=== PATIENT | female | born 1990 | race Caucasian/White ===

== ENCOUNTER 2017-09-04 15:51 | Inpatient (IN) | payer BC ==
[2017-09-04] MEDS ORDERED: Ondansetron 4 MG/2 ML SDV IVPUSH PRN (16:27)
[2017-09-04] MEDS ORDERED: Lidocaine 1% 50 ML MDV INJECT ONE (16:27)
[2017-09-04] MEDS ORDERED: Nalbuphine 20 MG/1 ML Amp IVPUSH PRN (16:27)
[2017-09-04] MEDS ORDERED: Sodium Chloride 0.9% 10 ML Syringe FLUSH PRN (16:27)
--- NOTE | 2017-09-04 16:45 | PCM.LDHP ---
L&D History of Present Illness - General Date of Service: 09/04/17 Admit Problem/Dx: Patient Status Order with Admit Dx/Problem 09/04/17 16:27 Patient Status [ADT] Routine Admission Diagnosis/Problem Admission Diagnosis/Problem complication before Source of Information: Patient History Limitations: Reports: No Limitations - History of Present Illness Introduction:: 27-year-old 000 GWYN 09/20/17 estimated gestational age 37 weeks 5 days with history of complication of because of type 1 diabetes. Utilizing insulin pump. Patient has been seen by Dr. De La Garza [facility]. Presented to labor and delivery today with history of increased swelling of lower extremities blurry vision "2 days ago" she felt like because of "low blood sugar" no headache and no right upper quadrant pain protein in urine was 2+ dipstick. Blood pressure initial blood pressure in the clinic 160/98 and repeat 170/102. NST was reactive in the clinic. Patient was sent to labor and delivery. Discussed patient with Dr. Greer and we both agree medically indicated induction because of preeclampsia with severe features. Labs pending. Group B strep negative. Blood type AB positive, antibody screen negative. 03/22/17 hemoglobin hematocrit 13.8/40.0. Platelets 285,000. Rubella immune, serology nonreactive, urine culture mixed diane suggestive of contamination. Hepatitis B surface antigen and HIV negative. On 07/03/17 hemoglobin hematocrit 13.4/39.6 platelets 261,000. On 08/08/17 hemoglobin hematocrit 13.6/39.1 platelet is 215,000. On hemoglobin A1c 6.5. On 08/22/17 group B strep negative. Improves with: Reports: None Worsens with: Reports: None Associated Symptoms: Reports: N Past Medical History : 1 Para: 0 (0000) LMP (Approximate): H&P Review of Systems - Review of Systems: Review Of Systems: See Below General: Reports: No Symptoms HEENT: Reports: No Symptoms Pulmonary: Reports: No Symptoms Cardiovascular: Reports: No Symptoms Gastrointestinal: Reports: No Symptoms Genitourinary: Reports: No Symptoms Musculoskeletal: Reports: No Symptoms Skin: Reports: No Symptoms Psychiatric: Reports: No Symptoms Neurological: Reports: No Symptoms Hematologic/Lymphatic: Reports: No Symptoms Immunologic: Reports: No Symptoms L&D Exam - Exam Exam: See Below - OB Specific Fundal Height In cm: 37 Movement: Active Heart Tones: Present Heart Tones per Min: 130 Heart Rate (FHR) Variability: Moderate (6-25 bmp) Presentation: Vertex - Vergara Score Vergara Score Cervix Position: Posterior Vergara Score Consistency: Soft Vergara Score Effacement: 31-50% Vergara Score Dilation: Closed Vergara Score Infant's Station: -3 Vergara Score Total: 3 - Exam General: Alert, Oriented HEENT: Conjunctiva Clear, Mucosa Moist & Ivan, PERRLA Neck: Supple, Trachea Midline Lungs: Clear to Auscultation, Normal Respiratory Effort Cardiovascular: Regular Rate, Regular Rhythm GI/Abdominal Exam: Normal Bowel Sounds, Soft, Non-Tender Genitourinary: Normal external exam, Normal bimanual exam, Normal speculum exam Extremities: Normal Inspection, Normal Range of Motion, Non-Tender, No Pedal Edema, Normal Capillary Refill Skin: Warm, Dry, Intact Neurological: Cranial Nerves Intact, Reflexes Equal Bilateral DTR: 2+: Bicep (L), Bicep (R), 3+: Patella (L) (No clonus), Patella (R) (2 beat clonus), Achilles (L) (No clonus), Achilles (R) (No clonus) Psychiatric: Alert, Normal Affect, Normal Mood - Problem List (1) 37 weeks gestation of SNOMED Code(s): 47394934 ICD Code: Z3A.37 - 37 WEEKS GESTATION OF Status: Acute Current Visit: Yes (2) Pre-existing type 1 diabetes mellitus during in third trimester SNOMED Code(s): 184251147 ICD Code: O24.013 - PRE-EXISTING TYPE 1 DIABETES, IN , THIRD TRIMESTER Status: Acute Current Visit: Yes (3) Pre-eclampsia, severe, third trimester SNOMED Code(s): 91486832 ICD Code: O14.13 - SEVERE PRE-ECLAMPSIA, THIRD TRIMESTER Status: Acute Current Visit: Yes Problem List Initiated/Reviewed/Updated: No Orders Last 24hrs: Active Orders 24 hr Category Date Time Status Patient Status [ADT] Routine ADT 09/04/17 16:27 Ordered Activity as Tolerated [RC] PFP Care 09/04/17 16:27 Ordered Blood Glucose Check, Bedside [RC] Q1HR Care 09/04/17 17:00 Ordered Communication Order [RC] ASDIRECTED Care 09/04/17 16:27 Ordered Communication Order [RC] ASDIRECTED Care 09/04/17 16:37 Ordered Heart Tones [RC] ASDIRECTED Care 09/04/17 16:28 Ordered NST [ Non Stress Test] [RC] PER UNIT ROUTINE Care 09/04/17 16:26 Ordered Notify Provider [RC] PFP Care 09/04/17 16:27 Ordered Notify Provider [RC] PRN Care 09/04/17 16:27 Ordered Peripheral IV Care [RC] . DIRECTED Care 09/04/17 16:28 Ordered Vital Signs [RC] PER UNIT ROUTINE Care 09/04/17 16:27 Ordered Regular Diet [DIET] Diet 09/04/17 Dinner Ordered BPP wo NST [US] Stat Exams 09/04/17 16:26 Ordered ALANINE AMINOTRANSFERASE,ALT [CHEM] Stat Lab 09/04/17 16:23 Ordered ASPARTATE AMNIOTRANSFERASE,AST [CHEM] Stat Lab 09/04/17 16:23 Ordered BLOOD UREA NITROGEN,BUN [CHEM] Stat Lab 09/04/17 16:23 Ordered CBC WITH AUTO DIFF [HEME] Stat Lab 09/04/17 16:23 Ordered CREATININE W/GFR [CHEM] Stat Lab 09/04/17 16:23 Ordered FIBRIN DEGREDATION PRODUCTS [COAG] Stat Lab 09/04/17 16:24 Ordered FIBRINOGEN [COAG] Stat Lab 09/04/17 16:24 Ordered LACTATE DEHYDROGENASE,LDH [CHEM] Stat Lab 09/04/17 16:23 Ordered PROTEIN/CREATININE RATIO,URINE [URCHEM] Routine Lab 09/04/17 16:22 Ordered PTT,PARTIAL THROMBOPLSTIN TIME [COAG] Routine Lab 09/04/17 15:47 Received TYPE AND SCREEN [BBK] Stat Lab 09/04/17 16:27 Ordered URIC ACID [CHEM] Routine Lab 09/04/17 15:47 Received Lactated Ringers [Ringers, Lactated] 1,000 ml Med 09/04/17 16:30 Ordered IV ASDIRECTED Lidocaine 1% [Xylocaine 1%] Med 09/04/17 16:27 Once 50 ml INJECT ONETIME ONE Misoprostol [Cytotec] Med 09/04/17 16:45 Ordered 25 mcg VAG Q4H Nalbuphine [Nubain] Med 09/04/17 16:27 Ordered 10 mg IVPUSH Q2H PRN Ondansetron [Zofran] Med 09/04/17 16:27 Ordered 4 mg IVPUSH Q4H PRN Oxytocin [Pitocin] 20 unit Med 09/04/17 16:45 Ordered Lactated Ringers [Ringers, Lactated] 1,000 ml IV ASDIRECTED Oxytocin [Pitocin] 20 unit Med 09/04/17 16:45 Ordered Lactated Ringers [Ringers, Lactated] 1,000 ml IV TITRATE Sodium Chloride 0.9% [Saline Flush] Med 09/04/17 16:27 Ordered 10 ml FLUSH ASDIRECTED PRN Electronic Heart Tones Ext w TOCO [WOMSER] Oth 09/04/17 16:27 Ordered Routine Electronic Heart Tones Internal [WOMSER] Per Unit Oth 09/04/17 16:27 Ordered Routine PIH Panel [OM.PC] Stat Oth 09/04/17 16:23 Ordered Peripheral IV Insertion Adult [OM.PC] Routine Oth 09/04/17 16:27 Ordered Resuscitation Status Routine Resus Stat 09/04/17 16:27 Ordered Medication Orders Lactated Ringer's (Ringers, Lactated) 1,000 mls @ 100 mls/hr IV ASDIRECTED EDDIE Oxytocin 20 unit/ Lactated (Ringer's) 1,002 mls @ 6.01 mls/hr IV TITRATE EDDIE; 2 MUNITS/MIN PRN Reason: Protocol Oxytocin 20 unit/ Lactated (Ringer's) 1,002 mls @ 500 mls/hr IV ASDIRECTED EDDIE PRN Reason: Protocol Lidocaine HCl (Xylocaine 1%) 50 ml INJECT ONETIME ONE Stop: 09/04/17 16:28 Misoprostol (Cytotec) 25 mcg VAG Q4H EDDIE Stop: 09/05/17 01:01 Nalbuphine HCl (Nubain) 10 mg IVPUSH Q2H PRN PRN Reason: Pain (moderate 4-6) Ondansetron HCl (Zofran) 4 mg IVPUSH Q4H PRN PRN Reason: Nausea/Vomiting Sodium Chloride (Saline Flush) 10 ml FLUSH ASDIRECTED PRN PRN Reason: Keep Vein Open
[2017-09-04] MEDS ORDERED: Magnesium Sulfate/Water 4 GM in Premix Bag 1 BAG IV ONE (16:52)
[2017-09-04] MEDS ORDERED: Magnesium Sulfate/Water 2 GM in Premix Bag 1 BAG IV ONE (16:57)
--- NOTE | 2017-09-04 17:26 | PCM.SN ---
- Free Text/Narrative Note: BPP 02/06 estimated weight 7 lbs. 7 oz. JOSE GUADALUPE 21.75 per verbal report
[2017-09-04] MEDS ORDERED: Misoprostol 25 MCG (1/4 of 100 MCG) Tab ONE ×2 (17:43→21:44)
[2017-09-04] MEDS: Lactated Ringers 1,000 ML IV SCH (17:48)
[2017-09-04] MEDS: Misoprostol 100 MCG Tab VAG SCH ×2 (17:50→21:49)
--- NOTE | 2017-09-04 18:16 | US ---
Biophysical profile: Multiple real-time images were obtained. Comparison: Prior obstetrical ultrasounds are available, most recent exam is 07/23/17. Dates: LMP: ? Current ultrasound: GWYN 09/19/17, gestational age 37 weeks 6 days Earliest ultrasound (06/18/17): GWYN 09/17/17, gestational age is 38 weeks 1 day presentation: Cephalic Placenta: Anterior Amniotic fluid: JOSE GUADALUPE 21.7 cm Measurements: BPD: 9.37 cm - 38 weeks 1 day Head circumference: 33.02 cm - 37 weeks 5 days Abdominal circumference: 34.69 cm - 38 weeks 5 days Femur length: 7.16 cm - 36 weeks 5 days Estimated weight: 3366 g (7 lbs. 7 oz.), estimated weight at the 65th percentile for age by current ultrasound Heart rate: 122 BPM Cervical length: 3.5 cm Growth curves: Various growth parameters are around the mean percentile. Growth is felt to be appropriate from prior studies. Biophysical profile: movement 2, breathing movement 2, tone 2, amniotic fluid volume 2 Impression: 1. Single intrauterine fetus currently cephalic in presentation. Dates as noted above. 2. growth is appropriate from prior studies. 3. 8 out of 8 on biophysical profile. Diagnostic code #1
[2017-09-04] MEDS ORDERED: Acetaminophen 325 MG Tab PO PRN (21:40)
[2017-09-04] MEDS ORDERED: Magnesium Sulfate/Water 100 ML ONE (22:55)
[2017-09-04] MEDS ORDERED: Magnesium Sulfate/Water 50 ML ONE (22:56)
[2017-09-04] MEDS: Magnesium Sulfate/Water 40 GM/1,000 ML BAG IV SCH (23:40)
[2017-09-05] MEDS ORDERED: fentaNYL 100 MCG/2 ML SDV EPIDUR PRN (00:44)
[2017-09-05] MEDS ORDERED: ePHEDrine 50 MG/ML SDV IVPUSH PRN ×3 (00:44→10:21)
[2017-09-05] MEDS ORDERED: Ondansetron 4 MG/2 ML SDV IVPUSH PRN ×2 (00:44→07:01)
[2017-09-05] MEDS ORDERED: Bupivacaine/fentaNYL/NS 100 ML Bag EPIDUR SCH (00:45)
--- NOTE | 2017-09-05 00:54 | PCM.PREANE ---
Preanesthetic Assessment - Anesthesia/Transfusion/Family Hx Anesthesia History: Prior Anesthesia Without Reaction Family History of Anesthesia Reaction: No Transfusion History: No Prior Transfusion(s) Intubation History: Unknown - Review of Systems General: No Symptoms Pulmonary: No Symptoms Cardiovascular: No Symptoms (PIH starting today 09/04/2017), Lightheadedness ( with low blood sugars) Gastrointestinal: Nausea, Vomiting Neurological: No Symptoms, Headache (09/04/16 with pre-eclampsi), Tingling ( bilateral legs with with restless leg syndrome noted.) Other: Reports: Diabetes (type I with insulin pump noted.) - Physical Assessment NPO Status Date: 09/04/17 NPO Status Time: 18:30 Pulse: 96 O2 Sat by Pulse Oximetry: 100 Respiratory Rate: 17 Blood Pressure: 159/94 Temperature: 36.6 C Vital Signs: Last Vital Signs Temp 36.6 C 09/04/17 16:27 Pulse 96 09/04/17 16:27 Resp 17 09/04/17 16:27 BP 159/94 H 09/04/17 16:27 Pulse Ox 100 09/04/17 16:27 Height: 1.68 m Weight: 89.902 kg ASA Class: 2 Mental Status: Alert & Oriented x3 Airway Class: Mallampati = 3 Dentition: Reports: Normal Dentition, Caries Thyro-Mental Finger Breadths: 3 Mouth Opening Finger Breadths: 3 ROM/Head Extension: Full Lungs: Clear to Auscultation, Normal Respiratory Effort Cardiovascular: Regular Rate, Regular Rhythm, No Murmurs - Lab Values: Laboratory Last Values WBC 9.32 K/mm3 (3.98-10.04) 09/04/17 16:40 RBC 4.59 M/mm3 (3.98-5.22) 09/04/17 16:40 Hgb 12.9 gm/L (11.2-15.7) 09/04/17 16:40 Hct 38.2 % (34.1-44.9) 09/04/17 16:40 MCV 83.2 fl (79.4-94.8) 09/04/17 16:40 MCH 28.1 pg (25.6-32.2) 09/04/17 16:40 MCHC 33.8 g/dl (32.2-35.5) 09/04/17 16:40 RDW Std Deviation 38.5 fL (36.4-46.3) 09/04/17 16:40 Plt Count 216 K/mm3 (182-369) 09/04/17 16:40 MPV 12.0 fl (9.4-12.3) 09/04/17 16:40 Neut % (Auto) 72.3 % (34.0-71.1) H 09/04/17 16:40 Lymph % (Auto) 17.7 % (19.3-51.7) L 09/04/17 16:40 [place] % (Auto) 9.1 % (4.7-12.5) 09/04/17 16:40 Eos % (Auto) 0.6 (0.7-5.8) L 09/04/17 16:40 Baso % (Auto) 0.1 % (0.1-1.2) 09/04/17 16:40 Neut # (Auto) 6.73 K/mm3 (1.56-6.13) H 09/04/17 16:40 Lymph # (Auto) 1.65 K/mm3 (1.18-3.74) 09/04/17 16:40 [place] # (Auto) 0.85 K/mm3 (0.24-0.36) H 09/04/17 16:40 Eos # (Auto) 0.06 K/mm3 (0.04-0.36) 09/04/17 16:40 Baso # (Auto) 0.01 K/mm3 (0.01-0.08) 09/04/17 16:40 APTT 26 SECONDS (22-36) 09/04/17 15:47 Fibrinogen 418.6 mg/dL (200-400) H 09/04/17 15:47 Fibrin Degrad Products > 5 but < 20 ug/ml ug/mL (<5) H 09/04/17 15:47 BUN 8 mg/dL (7-18) 09/04/17 16:40 Creatinine 0.7 mg/dL (0.55-1.02) 09/04/17 16:40 Est Cr Clr Drug Dosing TNP 09/04/17 16:40 Estimated GFR (MDRD) > 60 mL/min (>60) 09/04/17 16:40 Uric Acid 4.7 mg/dL (2.6-6.0) 09/04/17 15:47 AST 30 U/L (15-37) 09/04/17 16:40 ALT 23 U/L (14-59) 09/04/17 16:40 Lactate Dehydrogenase 224 U/L (81-234) 09/04/17 16:40 Blood Type AB POSITIVE 09/04/17 16:40 Gel Antibody Screen Negative 09/04/17 16:40 Above labs reviewed and noted and within acceptable ranges to proceed with epidural. - Allergies Allergies/Adverse Reactions: Allergies Allergy/AdvReac Type Severity Reaction Status Date / Time cefaclor [From [facility] Allergy Cannot Verified 09/04/17 17:17 Remember - Anesthesia Plan Pre-Op Medication Ordered: None - Acknowledgements Anesthesia Type Planned: Epidural Pt an Appropriate Candidate for the Planned Anesthesia: Yes Alternatives and Risks of Anesthesia Discussed w Pt/Guardian: Yes Pt/Guardian Understands and Agrees with Anesthesia Plan: Yes PreAnesthesia Questionnaire Endocrine/Metabolic History: Reports: Diabetes, Type I Other Endocrine/Metabolic History: Has own insulin pump and glucometer - Past Surgical History Endocrine Surgical History: Reports: None - SUBSTANCE USE Smoking Status *Q: Never Smoker Second Hand Smoke Exposure: No Recreational Drug Use History: No - CURRENT (IN HOUSE) MEDS Current Meds: Current Medications Acetaminophen (Tylenol) 650 mg PO Q6H PRN PRN Reason: Headache Last Admin: 09/04/17 21:47 Dose: 650 mg Ephedrine Sulfate (Ephedrine Sulfate) 5 mg IVPUSH ASDIRECTED PRN PRN Reason: Hypotension Fentanyl (Sublimaze) 100 mcg EPIDUR Q3H PRN PRN Reason: Pain Fentanyl/Bupivacaine HCl (Fentanyl/Bupivacaine/Ns 2 Mcg-0.125% 100 Ml) 100 ml EPIDUR ASDIRECTED EDDIE Lactated Ringer's (Ringers, Lactated) 1,000 mls @ 75 mls/hr IV ASDIRECTED EDDIE Last Admin: 09/04/17 17:48 Dose: 75 mls/hr Oxytocin 20 unit/ Lactated (Ringer's) 1,002 mls @ 6.01 mls/hr IV TITRATE EDDIE; 2 MUNITS/MIN PRN Reason: Protocol Oxytocin 20 unit/ Lactated (Ringer's) 1,002 mls @ 500 mls/hr IV ASDIRECTED EDDIE PRN Reason: Protocol Magnesium Sulfate (Magnesium Sulfate 40 Gm In Water 1000 Ml) 40 gm in 1,000 mls @ 50 mls/hr IV ASDIRECTED EDDIE Last Admin: 09/04/17 23:40 Dose: 50 mls/hr Misoprostol (Cytotec) 25 mcg VAG Q4H [facility] Stop: 09/05/17 01:01 Last Admin: 09/04/17 21:49 Dose: 25 mcg Nalbuphine HCl (Nubain) 10 mg IVPUSH Q2H PRN PRN Reason: Pain (moderate 4-6) Ondansetron HCl (Zofran) 4 mg IVPUSH Q4H PRN PRN Reason: Nausea/Vomiting Last Admin: 09/05/17 00:35 Dose: 4 mg Ondansetron HCl (Zofran) 4 mg IVPUSH ONETIME PRN PRN Reason: Nausea/Vomiting Sodium Chloride (Saline Flush) 10 ml FLUSH ASDIRECTED PRN PRN Reason: Keep Vein Open Discontinued Medications Magnesium Sulfate 4 gm/ Premix 100 mls @ 400 mls/hr IV ONETIME ONE Stop: 09/04/17 17:06 Last Admin: 09/04/17 23:20 Dose: 400 mls/hr Magnesium Sulfate 2 gm/ Premix 50 mls @ 300 mls/hr IV ONETIME ONE Stop: 09/04/17 17:06 Last Admin: 09/04/17 23:02 Dose: 300 mls/hr Magnesium Sulfate (Magnesium Sulfate 4 Gm In Water 100 Ml) Confirm Administered Dose 100 mls @ as directed .ROUTE .STK-MED ONE Stop: 09/04/17 22:56 Last Admin: 09/04/17 23:23 Dose: Not Given Magnesium Sulfate (Magnesium Sulfate 2 Gm In Water 50 Ml) Confirm Administered Dose 50 mls @ as directed .ROUTE .STK-MED ONE Stop: 09/04/17 22:57 Last Admin: 09/04/17 23:23 Dose: Not Given Lidocaine HCl (Xylocaine 1%) 50 ml INJECT ONETIME ONE Stop: 09/04/17 16:28 Misoprostol (Cytotec) Confirm Administered Dose 25 mcg .ROUTE .STK-MED ONE Stop: 09/04/17 17:44 Last Admin: 09/04/17 17:50 Dose: Not Given Misoprostol (Cytotec) Confirm Administered Dose 25 mcg .ROUTE .STK-MED ONE Stop: 09/04/17 21:45 Last Admin: 09/04/17 21:48 Dose: Not Given
[2017-09-05] MEDS: Lactated Ringers 1,000 ML IV SCH ×2 (01:15→16:22)
[2017-09-05] MEDS: Misoprostol 100 MCG Tab VAG SCH (02:01)
[2017-09-05] MEDS ORDERED: Oxytocin/Lactated Ringers 10 UNIT/1,000 ML BAG IV SCH (02:15)
[2017-09-05] MEDS ORDERED: Gentamicin 40 MG/ML 2 ML Vial ONE (05:49)
[2017-09-05] MEDS ORDERED: Clindamycin Phosphate 900 MG/6 ML AdvVial ONE (05:50)
[2017-09-05] MEDS ORDERED: Citric Acid/Sodium Citrate Solution 30 ML Cup PO ONE (05:54)
[2017-09-05] MEDS ORDERED: Metoclopramide 10 MG/2 ML SDV IVPUSH ONE (05:54)
--- NOTE | 2017-09-05 05:54 | PCM.SN ---
- Free Text/Narrative Note: Called about prolonged deceleration at 0517 and reviewed monitopr strip. Cervix 0-1 cm. Pitocin dicontinued when deceleration occurred. Magnesium sulfate level 4.2. Discussed options with patient and and will proceed with section.
[2017-09-05] MEDS ORDERED: Morphine PF 1 MG/ML Amp ONE (05:59)
[2017-09-05] MEDS ORDERED: Bupivacaine 0.5% 30 ML SDV ONE (06:00)
[2017-09-05] MEDS ORDERED: Sodium Chloride 0.9% 100 ML ONE (06:22)
[2017-09-05] MEDS ORDERED: Ondansetron 4 MG/2 ML SDV ONE (06:27)
[2017-09-05] MEDS ORDERED: Lactated Ringers 2,000 ML ONE (06:27)
[2017-09-05] MEDS ORDERED: Oxytocin 10 Units/1 ML SDV ONE (06:27)
[2017-09-05] MEDS ORDERED: fentaNYL 100 MCG/2 ML SDV ONE (06:27)
[2017-09-05] MEDS ORDERED: Ketorolac 30 MG/ML SDV ONE (06:27)
[2017-09-05] MEDS ORDERED: Lidocaine 2% with EPINEPHrine 1:200,000 20 ML SDV ONE (06:27)
[2017-09-05] MEDS ORDERED: Phenylephrine 1% 10 MG/ML SDV ONE (06:27)
[2017-09-05] MEDS ORDERED: diphenhydrAMINE 50 MG/ML SDV IVPUSH PRN ×2 (07:01→10:21)
[2017-09-05] MEDS ORDERED: Meperidine PF 50 MG/ML Syringe IVPUSH PRN (07:01)
[2017-09-05] MEDS ORDERED: fentaNYL 100 MCG/2 ML SDV IVPUSH PRN (07:01)
[2017-09-05] MEDS ORDERED: Phenylephrine 1 MG in Sodium Chloride 0.9% 10 ML IV SCH (07:15)
[2017-09-05] MEDS ORDERED: Meperidine PF 50 MG/ML Syringe ONE (07:29)
[2017-09-05] MEDS ORDERED: Promethazine 6.25 MG in Sodium Chloride 0.9% 50 ML IV PRN (07:50)
--- NOTE | 2017-09-05 07:51 | PCM.OPNOTE ---
- General Post-Op/Procedure Note Date of Surgery/Procedure: 09/05/17 Operative Procedure(s): section primary low transverse lower uterine segment Pre Op Diagnosis: Preeclampsia with severe features, type 1 diabetes, nonreassuring heart rate pattern Post-Op Diagnosis: Same Anesthesia Technique: Epidural Primary Surgeon: Rolando Wylie Secondary Surgeon: Liat Mcmahan Anesthesia Provider: Aaliyah Jacobs (Suze Callejas CRNA) Able Bodied Seaman: Pete Crespo (PAS) Reason Able Bodied Seaman Was Necessary: Difficulty of procedure, retraction, decrease comorbidity and comortality Role of Able Bodied Seaman: Difficulty of procedure, retraction, decrease comorbidity and comortality Fluid Replacement, Intraop: 1,200 Output, Urine Amount: 150 EBL in mLs: 1,200 Drain/Tube Comments:: Guidry Complications: None Condition: Good Free Text/Narrative:: Intake & Output 09/04/17 09/05/17 09/05/17 22:59 06:59 14:59 Intake Total 1150 Output Total 375 Balance 775 Patient was transported to operating room and placed under epidural anesthesia in the supine position with wedge under the right hip and right flank. SCDs in place and functioning prior surgery. Patient received clindamycin 900 mg and gentamicin 450 mg IV preop. Patient was prepared and draped in a sterile fashion. Timeout was performed confirming name, date of , procedure as section. Adequate level of anesthesia was confirmed and 20 mL of 0.5% Marcaine without epinephrine injection area of the planned incision the planned incision was marked with marking pen. was brought to the operating room. Pfannenstiel incision was made and care was sharp section to into the anterior fascia. Peritoneal cavity was entered without difficulty. Bladder flap created pushed caudad. Low segment transverse performed with clear amniotic fluid upon entry into the amnionic cavity. The was delivered with the assistance of vacuum extraction times one in the green for less than 20 seconds. The female liveborn delivered on Sunday09/05/[address] Culver clinical sales consultant in attendance. Weight 6 lbs. 11 oz. Apgars 5/7/9 at 1/5/10 minutes respectively. The initial 5 suspected related to the magnesium sulfate required to help control her hyperactivity related to -induced hypertension. Nuchal cord times one. Cord blood was collected and placenta removal was manual. There was a velamentous insertion of the cord. Lita cavity was inspected and remnants of membranes and placenta were removed. Cervical patency was assured. The uterus exteriorization was assisted with the vacuum extraction. Sponge needle pack asthma count correct times one and the uterine incision closed with running locking suture of #1 Monocryl beginning on the patient's left side because of a large venous sinus that was bleeding. This was brought to the midline and tied. Same procedure carried out on the right side. Second layer of horizontal imbricating suture modified Lembert type is 0 Monocryl. Both tubes and ovaries were normal clots were cleaned from the gutters and cul-de-sac uterus replaced into the abdominal cavity. The uterine incision inspected no bleeding. Sponge needle pack asthma sharp count correct 2. The abdominal cavity was closed with #1 PDS for the anterior fascia. The subcutaneous tissue was closed with 3-0 Monocryl Sumanth needle subcuticular suture. Dermabond Preneo applied. Clots were cleaned from the vagina at the end the procedure. Patient was transported postanesthesia care unit in satisfactory condition no blood transfusions were required. The insulin pump had been removed prior to surgery this will be reinserted after surgery in the PACU. Patient will be continued on magnesium sulfate for 24 hours because of her -induced hypertension with severe features. (Preeclampsia with severe features). Blood sugar prior surgery was 121 at 0700 hrs.
--- NOTE | 2017-09-05 07:54 | PCM.POSTAN ---
POST ANESTHESIA ASSESSMENT - MENTAL STATUS Mental Status: Alert, Oriented - VITAL SIGNS Pulse Rate: 94 SaO2: 96 Resp Rate: 16 Blood Pressure: 114/66 Temperature: 36.6 C - RESPIRATORY Respiratory Status: Respiratory Rate WNL, Airway Patent, O2 Saturation Stable - CARDIOVASCULAR CV Status: Pulse Rate WNL, Blood Pressure Stable - GASTROINTESTINAL GI Status: [place] - PAIN Pain Score: 0 - POST OP HYDRATION Hydration Status: Adequate & Stable
[2017-09-05] MEDS ORDERED: Bupivacaine 0.25% 10 ML SDV ONE (09:00)
[2017-09-05] MEDS ORDERED: Scopolamine 1 MG Transdermal Patch TRDERM PRN (10:21)
[2017-09-05] MEDS ORDERED: Lanolin 100% Cream 7 GM Tube TOP PRN (10:21)
[2017-09-05] MEDS ORDERED: Sodium Chloride 0.9% 10 ML Syringe FLUSH PRN (10:21)
[2017-09-05] MEDS ORDERED: Naloxone 0.4 MG/ML SDV IVPUSH PRN (10:21)
[2017-09-05] MEDS ORDERED: Ondansetron 4 MG/2 ML SDV IV PRN (10:21)
[2017-09-05] MEDS ORDERED: Dextrose 5%-Lactated Ringers 1,000 ML IV SCH (10:21)
[2017-09-05] MEDS: Simethicone 80 MG Tab.Chew PO SCH ×5 (12:20→20:28)
[2017-09-05] MEDS: Ketorolac 30 MG/ML SDV IVPUSH SCH ×2 (12:44→18:44)
[2017-09-05] MEDS ORDERED: Lactated Ringers 1,000 ML ONE (16:14)
[2017-09-05] MEDS ORDERED: Promethazine 12.5 MG in Sodium Chloride 0.9% 50 ML IV PRN (16:45)
--- NOTE | 2017-09-05 16:53 | PCM.SN ---
- Free Text/Narrative Note: DOS/PPD1 BP 114/84. Still nauseated, Pheneragn seems to be working well for her ordered 12.5 mg IV infused over 30 min q6h prn nausea. Uterus at umbilicus-1. No lower extremity tenderness. Glucose in 90's past two hours will check glucose with meals and more often if symptomatic. Reflexes anticubital 1+ left and right, patellar right 2+, left 3+, no patellar or ankle clonus. Outpi since 0930 600 ml in 7 hours. No heavy vaginal bleeding
[2017-09-05] MEDS ORDERED: Lactated Ringers 1,000 ML IV SCH (17:00)
[2017-09-05] MEDS: Magnesium Sulfate/Water 40 GM/1,000 ML BAG IV SCH (20:18)
[2017-09-05] MEDS: Acetaminophen/oxyCODONE 325-5 MG Tab PO PRN (22:05)
[2017-09-06] MEDS: Ketorolac 30 MG/ML SDV IVPUSH SCH (00:51)
[2017-09-06] MEDS: Acetaminophen/oxyCODONE 325-5 MG Tab PO PRN ×3 (03:22→18:31)
[2017-09-06] MEDS ORDERED: Pantoprazole 40 MG Tab.CR PO SCH (07:30)
[2017-09-06] MEDS: Ibuprofen 600 MG Tab PO PRN ×3 (08:32→22:56)
[2017-09-06] MEDS: Simethicone 80 MG Tab.Chew PO SCH ×4 (08:33→22:58)
--- NOTE | 2017-09-06 08:43 | PCM.PN ---
- General Info Date of Service: 09/06/17 Functional Status: Reports: Pain Controlled - Review of Systems General: Reports: No Symptoms HEENT: Reports: Visual Changes (Blurred vision) Pulmonary: Reports: No Symptoms Cardiovascular: Reports: No Symptoms Gastrointestinal: Reports: No Symptoms Genitourinary: Reports: No Symptoms Musculoskeletal: Reports: No Symptoms Skin: Reports: No Symptoms Neurological: Reports: No Symptoms Psychiatric: Reports: No Symptoms - Patient Data Vitals - Most Recent: Last Vital Signs Temp 97.4 F 09/06/17 06:00 Pulse 97 09/06/17 05:57 Resp 17 09/06/17 06:43 BP 122/70 09/06/17 05:57 Pulse Ox 96 09/06/17 06:43 Weight - Most Recent: 198 lb 3.2 oz I&O - Last 24 Hours: Intake & Output 09/05/17 09/06/17 09/06/17 22:59 06:59 14:59 Intake Total 2500 1800 Output Total 1325 1925 Balance 1175 -125 Lab Results Last 24 Hours: Laboratory Results - last 24 hr 09/05/17 09/05/17 09/05/17 Range/Units 09:25 11:54 15:00 WBC (3.98-10.04) K/mm3 RBC (3.98-5.22) M/mm3 Hgb (11.2-15.7) gm/L Hct (34.1-44.9) % MCV (79.4-94.8) fl MCH (25.6-32.2) pg MCHC (32.2-35.5) g/dl RDW Std Deviation (36.4-46.3) fL Plt Count (182-369) K/mm3 MPV (9.4-12.3) fl Neut % (Auto) (34.0-71.1) % Lymph % (Auto) (19.3-51.7) % [place] % (Auto) (4.7-12.5) % Eos % (Auto) (0.7-5.8) Baso % (Auto) (0.1-1.2) % Neut # (Auto) (1.56-6.13) K/mm3 Lymph # (Auto) (1.18-3.74) K/mm3 [place] # (Auto) (0.24-0.36) K/mm3 Eos # (Auto) (0.04-0.36) K/mm3 Baso # (Auto) (0.01-0.08) K/mm3 POC Glucose 183 H (70-105) mg/dL Magnesium 4.9 H 5.3 H (1.8-2.4) mg/dl 09/05/17 09/05/17 09/06/17 Range/Units 19:12 23:05 03:30 WBC (3.98-10.04) K/mm3 RBC (3.98-5.22) M/mm3 Hgb (11.2-15.7) gm/L Hct (34.1-44.9) % MCV (79.4-94.8) fl MCH (25.6-32.2) pg MCHC (32.2-35.5) g/dl RDW Std Deviation (36.4-46.3) fL Plt Count (182-369) K/mm3 MPV (9.4-12.3) fl Neut % (Auto) (34.0-71.1) % Lymph % (Auto) (19.3-51.7) % [place] % (Auto) (4.7-12.5) % Eos % (Auto) (0.7-5.8) Baso % (Auto) (0.1-1.2) % Neut # (Auto) (1.56-6.13) K/mm3 Lymph # (Auto) (1.18-3.74) K/mm3 [place] # (Auto) (0.24-0.36) K/mm3 Eos # (Auto) (0.04-0.36) K/mm3 Baso # (Auto) (0.01-0.08) K/mm3 POC Glucose (70-105) mg/dL Magnesium 5.7 H 5.9 H 6.1 H (1.8-2.4) mg/dl 09/06/17 09/06/17 Range/Units 07:10 07:10 WBC 14.04 H (3.98-10.04) K/mm3 RBC 3.37 L (3.98-5.22) M/mm3 Hgb 9.4 L (11.2-15.7) gm/L Hct 28.4 L (34.1-44.9) % MCV 84.3 (79.4-94.8) fl MCH 27.9 (25.6-32.2) pg MCHC 33.1 (32.2-35.5) g/dl RDW Std Deviation 37.3 (36.4-46.3) fL Plt Count 182 (182-369) K/mm3 MPV 11.5 (9.4-12.3) fl Neut % (Auto) 81.0 H (34.0-71.1) % Lymph % (Auto) 11.7 L (19.3-51.7) % [place] % (Auto) 6.6 (4.7-12.5) % Eos % (Auto) 0.4 L (0.7-5.8) Baso % (Auto) 0.1 (0.1-1.2) % Neut # (Auto) 11.38 H (1.56-6.13) K/mm3 Lymph # (Auto) 1.64 (1.18-3.74) K/mm3 [place] # (Auto) 0.93 H (0.24-0.36) K/mm3 Eos # (Auto) 0.05 (0.04-0.36) K/mm3 Baso # (Auto) 0.01 (0.01-0.08) K/mm3 POC Glucose (70-105) mg/dL Magnesium 5.8 H (1.8-2.4) mg/dl Med Orders - Current: Current Medications Diphenhydramine HCl (Benadryl) 25 mg IVPUSH Q6H PRN PRN Reason: Itching or Nausea Docusate Sodium (Colace) 100 mg PO Q12H PRN PRN Reason: Constipation Emollient Ointment (Lansinoh Hpa) 0 gm TOP ASDIRECTED PRN PRN Reason: Sore Nipples Ephedrine Sulfate (Ephedrine Sulfate) 5 mg IVPUSH SEECOMMENT PRN PRN Reason: Other Magnesium Sulfate (Magnesium Sulfate 40 Gm In Water 1000 Ml) 40 gm in 1,000 mls @ 50 mls/hr IV ASDIRECTED [facility] Last Admin: 09/05/17 20:18 Dose: 50 mls/hr Lactated Ringer's (Ringers, Lactated) 1,000 mls @ 75 mls/hr IV ASDIRECTED [facility] Last Admin: 09/06/17 01:45 Dose: 75 mls/hr Promethazine HCl 12.5 mg/ (Sodium Chloride) 50.5 mls @ 100 mls/hr IV Q6H PRN PRN Reason: Nausea Ibuprofen (Motrin) 600 mg PO Q6H PRN PRN Reason: mild pain or fever Last Admin: 09/06/17 08:32 Dose: 600 mg Miscellaneous Information (Remove Patch) 0 ea TRDERM ONETIME ONE Stop: 09/08/17 10:31 Naloxone HCl (Narcan) 0.1 mg IVPUSH SEECOMMENT PRN PRN Reason: Respiratory Depression Ondansetron HCl (Zofran) 4 mg IV Q4H PRN PRN Reason: Nausea/Vomiting Oxycodone/Acetaminophen (Percocet 325-5 Mg) 2 tab PO Q4H PRN PRN Reason: Pain (moderate 4-6) Last Admin: 09/06/17 03:22 Dose: 2 tab Pantoprazole Sodium (Protonix) 40 mg PO 0730 [facility] Last Admin: 09/06/17 06:41 Dose: 40 mg Scopolamine (Scopolamine) 1 each TRDERM Q72H PRN PRN Reason: Nausea Last Admin: 09/05/17 12:44 Dose: 1 each Simethicone (Simethicone) 160 mg PO QID [facility] Last Admin: 09/06/17 08:33 Dose: 160 mg Sodium Chloride (Saline Flush) 10 ml FLUSH ASDIRECTED PRN PRN Reason: Keep Vein Open Last Admin: 09/05/17 17:56 Dose: 10 ml Discontinued Medications Acetaminophen (Tylenol) 650 mg PO Q6H PRN PRN Reason: Headache Last Admin: 09/04/17 21:47 Dose: 650 mg Bupivacaine HCl (Marcaine 0.5%) Confirm Administered Dose 30 ml .ROUTE .STK-MED ONE Stop: 09/05/17 06:01 Last Admin: 09/05/17 07:19 Dose: 20 ml Bupivacaine HCl (Sensorcaine-Mpf 0.25%) 10 ml .ROUTE .STK-MED ONE Stop: 09/05/17 09:01 Citric Acid/Sodium Citrate (Bicitra Solution) 30 ml PO ONETIME ONE Stop: 09/05/17 05:55 Last Admin: 09/05/17 06:06 Dose: 30 ml Clindamycin Phosphate (Cleocin) Confirm Administered Dose 900 mg .ROUTE .[facility] ONE Stop: 09/05/17 05:51 Last Admin: 09/05/17 17:28 Dose: Not Given Diphenhydramine HCl (Benadryl) 25 mg IVPUSH Q6H PRN PRN Reason: pruritis Ephedrine Sulfate (Ephedrine Sulfate) 5 mg IVPUSH ASDIRECTED PRN PRN Reason: Hypotension Ephedrine Sulfate (Ephedrine Sulfate) 5 mg IVPUSH ASDIRECTED PRN PRN Reason: Hypotension Fentanyl (Sublimaze) 100 mcg EPIDUR Q3H PRN PRN Reason: Pain Last Admin: 09/05/17 01:10 Dose: 100 mcg Fentanyl (Sublimaze) Confirm Administered Dose 100 mcg .ROUTE .[facility] ONE Stop: 09/05/17 06:28 Fentanyl (Sublimaze) 50 mcg IVPUSH Q5M PRN PRN Reason: Pain Fentanyl/Bupivacaine HCl (Fentanyl/Bupivacaine/Ns 2 Mcg-0.125% 100 Ml) 100 ml EPIDUR ASDIRECTED [facility] Last Admin: 09/05/17 01:10 Dose: 100 ml Gentamicin Sulfate (Gentamicin) Confirm Administered Dose 480 [facility] Stop: 09/05/17 05:50 Last Admin: 09/05/17 05:49 Dose: 480 mg Lactated Ringer's (Ringers, Lactated) 1,000 mls @ 75 mls/hr IV ASDIRECTED [facility] Last Admin: 09/05/17 16:22 Dose: 75 mls/hr Oxytocin 20 unit/ Lactated (Ringer's) 1,002 mls @ 500 mls/hr IV ASDIRECTED [facility] PRN Reason: Protocol Magnesium Sulfate 4 gm/ Premix 100 mls @ 400 mls/hr IV ONETIME ONE Stop: 09/04/17 17:06 Last Admin: 09/04/17 23:20 Dose: 400 mls/hr Magnesium Sulfate 2 gm/ Premix 50 mls @ 300 mls/hr IV ONETIME ONE Stop: 09/04/17 17:06 Last Admin: 09/04/17 23:02 Dose: 300 mls/hr Magnesium Sulfate (Magnesium Sulfate 4 Gm In Water 100 Ml) Confirm Administered Dose 100 mls @ as directed .ROUTE .[facility] ONE Stop: 09/04/17 22:56 Last Admin: 09/04/17 23:23 Dose: Not Given Magnesium Sulfate (Magnesium Sulfate 2 Gm In Water 50 Ml) Confirm Administered Dose 50 mls @ as directed .ROUTE .[facility] ONE Stop: 09/04/17 22:57 Last Admin: 09/04/17 23:23 Dose: Not Given Oxytocin/Lactated Ringer's (Pitocin In Lr 10 Units/1,000 Ml) 10 unit in 1,000 mls @ 12 mls/hr IV TITRATE EDDIE; 2 MUNITS/MIN PRN Reason: Protocol Last Titration: 09/05/17 05:19 Dose: 0 munits/min, 0 mls/hr Lactated Ringer's (Ringers, Lactated) Confirm Administered Dose 2,000 mls @ as directed .ROUTE .[facility] ONE Stop: 09/05/17 06:28 Sodium Chloride (Normal Saline) Confirm Administered Dose 100 mls @ as directed .ROUTE .[facility] ONE Stop: 09/05/17 06:23 Last Admin: 09/05/17 17:28 Dose: Not Given Phenylephrine HCl 1 mg/ Sodium (Chloride) 10.1 mls @ 1 mls/sec IV TITRATE EDDIE PRN Reason: Protocol Promethazine HCl 6.25 mg/ (Sodium Chloride) 50.25 mls @ 100 mls/hr IV ONETIME PRN PRN Reason: Nausea/Vomiting Last Admin: 09/05/17 08:10 Dose: 100 mls/hr Dextrose/Lactated Ringer's (Dextrose 5%-Lactated Ringers) 1,000 mls @ 125 mls/ hr IV ASDIRECTED EDDIE Stop: 09/05/17 18:20 Last Admin: 09/05/17 17:28 Dose: Not Given Lactated Ringer's (Ringers, Lactated) Confirm Administered Dose 1,000 mls @ as directed .ROUTE .[facility] ONE Stop: 09/05/17 16:15 Last Admin: 09/05/17 17:21 Dose: Not Given Ketorolac Tromethamine (Toradol) Confirm Administered Dose 30 mg .ROUTE .[facility] ONE Stop: 09/05/17 06:28 Ketorolac Tromethamine (Toradol) 30 mg IVPUSH Q6H EDDIE Stop: 09/06/17 01:01 Last Admin: 09/06/17 00:51 Dose: 30 mg Lidocaine HCl (Xylocaine 1%) 50 ml INJECT ONETIME ONE Stop: 09/04/17 16:28 Last Admin: 09/05/17 17:28 Dose: Not Given Lidocaine/Epinephrine (Xylocaine-Mpf 2%-Epi 1:200,000) Confirm Administered Dose 20 ml .ROUTE .STK-MED ONE Stop: 09/05/17 06:28 Meperidine HCl (Demerol) 12.5 mg IVPUSH ONETIME PRN PRN Reason: shivering Meperidine HCl (Demerol) Confirm Administered Dose 50 mg .ROUTE .STK-MED ONE Stop: 09/05/17 07:30 Metoclopramide HCl (Reglan) 10 mg IVPUSH ONETIME ONE Stop: 09/05/17 05:55 Last Admin: 09/05/17 06:06 Dose: 10 mg Misoprostol (Cytotec) 25 mcg VAG Q4H [facility] Stop: 09/05/17 01:01 Last Admin: 09/05/17 02:01 Dose: Not Given Misoprostol (Cytotec) Confirm Administered Dose 25 mcg .ROUTE .STK-MED ONE Stop: 09/04/17 17:44 Last Admin: 09/04/17 17:50 Dose: Not Given Misoprostol (Cytotec) Confirm Administered Dose 25 mcg .ROUTE .STK-MED ONE Stop: 09/04/17 21:45 Last Admin: 09/04/17 21:48 Dose: Not Given Morphine Sulfate (Duramorph Pf) Confirm Administered Dose 1 mg .ROUTE .STK-MED ONE Stop: 09/05/17 06:00 Nalbuphine HCl (Nubain) 10 mg IVPUSH Q2H PRN PRN Reason: Pain (moderate 4-6) Ondansetron HCl (Zofran) 4 mg IVPUSH Q4H PRN PRN Reason: Nausea/Vomiting Last Admin: 09/05/17 00:35 Dose: 4 mg Ondansetron HCl (Zofran) 4 mg IVPUSH ONETIME PRN PRN Reason: Nausea/Vomiting Ondansetron HCl (Zofran) Confirm Administered Dose 4 mg .ROUTE .STK-MED ONE Stop: 09/05/17 06:28 Ondansetron HCl (Zofran) 4 mg IVPUSH ONETIME PRN PRN Reason: Nausea/Vomiting Oxytocin (Pitocin) Confirm Administered Dose 20 unit .ROUTE .STK-MED ONE Stop: 09/05/17 06:28 Phenylephrine HCl (Zoran-Synephrine) Confirm Administered Dose 10 mg .ROUTE .STK- MED ONE Stop: 09/05/17 06:28 Sodium Chloride (Saline Flush) 10 ml FLUSH ASDIRECTED PRN PRN Reason: Keep Vein Open - Exam General: Alert, Oriented HEENT: Pupils Equal, Pupils Reactive, Mucous Membr. Moist/[place] Neck: Supple Lungs: Clear to Auscultation, Normal Respiratory Effort Cardiovascular: Regular Rate, Regular Rhythm GI/Abdominal Exam: Normal Bowel Sounds, Soft, Non-Tender, Other (Incision normal ) Extremities: Normal Inspection, Normal Range of Motion, Non-Tender, No Pedal Edema, Normal Capillary Refill, Other (1+ antecubital reflexes bilaterally, 1+ patellar reflex right lower extremity 2+ reflexes left lower extremity no clonus ) Skin: Warm, Dry, Intact Wound/Incisions: Healing Well Neurological: No New Focal Deficit Psy/Mental Status: Alert, Normal Affect, Normal Mood - Problem List & Annotations (1) 37 weeks gestation of SNOMED Code(s): 73977285 Code(s): Z3A.37 - 37 WEEKS GESTATION OF Status: Acute Current Visit: Yes (2) Pre-existing type 1 diabetes mellitus during in third trimester SNOMED Code(s): 583588378 Code(s): O24.013 - PRE-EXISTING TYPE 1 DIABETES, IN , THIRD TRIMESTER Status: Acute Current Visit: Yes (3) Pre-eclampsia, severe, third trimester SNOMED Code(s): 22129025 Code(s): O14.13 - SEVERE PRE-ECLAMPSIA, THIRD TRIMESTER Status: Acute Current Visit: Yes - Problem List Review Problem List Initiated/Reviewed/Updated: No - My Orders Last 24 Hours: My Active Orders 09/05/17 10:21 Activity as Tolerated [RC] .Routine Ambulate [RC] PER UNIT ROUTINE Antiembolic Devices [RC] PER UNIT ROUTINE Blood Glucose Check, Bedside [RC] WITHMEALSANDBED Communication Order [RC] ASDIRECTED Communication Order [RC] PER UNIT ROUTINE Communication Order [RC] PER UNIT ROUTINE Intake and Output [RC] Q4HR May Shower [RC] PER UNIT ROUTINE Notify Provider Intake and Out [RC] ASDIRECTED RT Incentive Spirometry [RC] Q2HWA Vital Signs [RC] Q1HR Acetaminophen/oxyCODONE [Percocet 325-5 MG] 2 tab PO Q4H PRN Docusate Sodium [Colace] 100 mg PO Q12H PRN Lanolin [Lansinoh HPA] See Dose Instructions TOP ASDIRECTED PRN Naloxone [Narcan] 0.1 mg IVPUSH SEECOMMENT PRN Ondansetron [Zofran] 4 mg IV Q4H PRN Scopolamine 1 each TRDERM Q72H PRN Simethicone 160 mg PO QID Sodium Chloride 0.9% [Saline Flush] 10 ml FLUSH ASDIRECTED PRN diphenhydrAMINE [Benadryl] 25 mg IVPUSH Q6H PRN ePHEDrine [ePHEDrine Sulfate] 5 mg IVPUSH SEECOMMENT PRN Abdominal Binder [OM.PC] Per Unit Routine Assess Lochia [WOMSER] Per Unit Routine Assess Uterine Involution [WOMSER] Per Unit Routine Breast Pump [WOMSER] Per Unit Routine Convert IV to Saline Lock [OM.PC] Routine Medication Administration Instruction [OM.PC] Routine Peripheral IV Discontinue [OM.PC] Routine Saline Lock Insert [OM.PC] Routine Sequential Compression Device [OM.PC] Per Unit Routine 09/05/17 16:45 Promethazine [Phenergan] 12.5 mg Sodium Chloride 0.9% [Normal Saline] 50 ml IV Q6H 09/05/17 17:00 Lactated Ringers [Ringers, Lactated] 1,000 ml IV ASDIRECTED 09/06/17 07:00 Ibuprofen [Motrin] 600 mg PO Q6H PRN 09/06/17 07:30 Pantoprazole [ProTONIX] 40 mg PO 0730 09/06/17 08:04 Urinary Catheter Removal [RC] Per Unit Routine 09/06/17 11:00 MAGNESIUM [CHEM] Q4H 09/06/17 15:00 MAGNESIUM [CHEM] Q4H 09/07/17 08:34 CBC WITH AUTO DIFF [HEME] Routine 09/08/17 10:30 Remove Patch 0 ea TRDERM ONETIME ONE - Plan Plan:: Will plan to discontinue lactated Ringer's saline lock IV discontinue mag sulfate and in approximately 1-2 hours discontinue [place] catheter. Patient stable a small morning. Blood pressure normal range. 120/70.
[2017-09-06] MEDS ORDERED: Sodium Chloride 0.9% 10 ML Syringe FLUSH PRN (08:44)
[2017-09-06] MEDS: NIFEdipine 30 MG Tab.ER PO SCH (18:27)
[2017-09-06] MEDS ORDERED: NIFEdipine 10 MG Cap PO STA (22:35)
[2017-09-06] MEDS ORDERED: hydrOXYzine HCl 25 MG/ML SDV STA (22:37)
[2017-09-06] MEDS ORDERED: hydrOXYzine HCl 50 MG Tab PO SCH (23:00)
[2017-09-07] MEDS: Acetaminophen/oxyCODONE 325-5 MG Tab PO PRN ×3 (00:20→14:05)
[2017-09-07] MEDS: Ibuprofen 600 MG Tab PO PRN ×2 (05:10→11:59)
[2017-09-07] MEDS: NIFEdipine 30 MG Tab.ER PO SCH (08:51)
[2017-09-07] MEDS: Simethicone 80 MG Tab.Chew PO SCH ×2 (08:52→14:04)
[2017-09-07] MEDS: Docusate Sodium 100 MG Cap PO PRN ×2 (11:58→14:08)
--- NOTE | 2017-09-07 12:01 | PCM.DCSUM1 ---
Discharge Summary - Hospital Course Free Text/Narrative:: Managing BP with Procardia XL 30 mg daily not sufficient will increase to BID. Would like to have Patient at least 24 more hours but patient refuses stay. Discussed possibility of seizure at home. Patient managing her diabetes with her insulin pump and will contact Melisa Colin for instructions and management. See Dr. Herndon Sunday09/12/17 for a pressure check and additional recommendation if any. [facility] Post-Op/Procedure Note Patient Name: SHANICE AU Date of : 88 Patient Status: Inpatient Attending Provider: Rolando Wylie Date: 09/05/17 07:40 Initialization Date: 09/05/17 07:40 - General Post-Op/Procedure Note Date of Surgery/Procedure: 09/05/17 Operative Procedure(s): section primary low transverse lower uterine segment Pre Op Diagnosis: Preeclampsia with severe features, type 1 diabetes, nonreassuring heart rate pattern Post-Op Diagnosis: Same Anesthesia Technique: Epidural Primary Surgeon: Rolando Wylie Secondary Surgeon: Liat Mcmahan Anesthesia Provider: Aaliyah Jacobs (Suze Callejas SMASH FIXER) Copyright Clerk: Pete Crespo (PETR) Reason Copyright Clerk Was Necessary: Difficulty of procedure, retraction, decrease comorbidity and comortality Role of Copyright Clerk: Difficulty of procedure, retraction, decrease comorbidity and comortality Fluid Replacement, Intraop: 1,200 Output, Urine Amount: 150 EBL in mLs: 1,200 Drain/Tube Comments:: Guidry Complications: None Condition: Good Free Text/Narrative:: Intake & Output 09/04/17 09/05/17 09/05/17 22:59 06:59 14:59 Intake Total 1150 Output Total 375 Balance 775 Patient was transported to operating room and placed under epidural anesthesia in the supine position with wedge under the right hip and right flank. SCDs in place and functioning prior surgery. Patient received clindamycin 900 mg and gentamicin 450 mg IV preop. Patient was prepared and draped in a sterile fashion. Timeout was performed confirming name, date of , procedure as section. Adequate level of anesthesia was confirmed and 20 mL of 0.5% Marcaine without epinephrine injection area of the planned incision the planned incision was marked with marking pen. was brought to the operating room. Pfannenstiel incision was made and care was sharp section to into the anterior fascia. Peritoneal cavity was entered without difficulty. Bladder flap created pushed caudad. Low segment transverse performed with clear amniotic fluid upon entry into the amnionic cavity. The was delivered with the assistance of vacuum extraction times one in the green for less than 20 seconds. The female liveborn delivered on Sunday09/05/[address] Culver incendiary powder mixer in attendance. Weight 6 lbs. 11 oz. Apgars 5/7/9 at 1/5/10 minutes respectively. The initial 5 suspected related to the magnesium sulfate required to help control her hyperactivity related to -induced hypertension. Nuchal cord times one. Cord blood was collected and placenta removal was manual. There was a velamentous insertion of the cord. Lita cavity was inspected and remnants of membranes and placenta were removed. Cervical patency was assured. The uterus exteriorization was assisted with the vacuum extraction. Sponge needle pack asthma count correct times one and the uterine incision closed with running locking suture of #1 Monocryl beginning on the patient's left side because of a large venous sinus that was bleeding. This was brought to the midline and tied. Same procedure carried out on the right side. Second layer of horizontal imbricating suture modified Lembert type is 0 Monocryl. Both tubes and ovaries were normal clots were cleaned from the gutters and cul-de-sac uterus replaced into the abdominal cavity. The uterine incision inspected no bleeding. Sponge needle pack asthma sharp count correct 2. The abdominal cavity was closed with #1 PDS for the anterior fascia. The subcutaneous tissue was closed with 3-0 Monocryl Sumanth needle subcuticular suture. Dermabond Preneo applied. Clots were cleaned from the vagina at the end the procedure. Patient was transported postanesthesia care unit in satisfactory condition no blood transfusions were required. The insulin pump had been removed prior to surgery this will be reinserted after surgery in the PACU. Patient will be continued on magnesium sulfate for 24 hours because of her -induced hypertension with severe features. (Preeclampsia with severe features). Blood sugar prior surgery was 121 at 0700 hrs. HPI Initial Comments: Managing BP with Procardia XL 30 mg daily not sufficient will increase to BID. Would like to have Patient at least 24 more hours but patient refuses stay. Discussed possibility of seizure at home. Patient managing her diabetes with her insulin pump and will contact Melisa Colin for instructions and management. See Dr. Herndon Sunday09/12/17 for a pressure check and additional recommendation if any. [facility] Post-Op/Procedure Note Patient Name: SHANICE AU Date of : 88 Patient Status: Inpatient Attending Provider: Rolando Wylie Date: 09/05/17 07:40 Initialization Date: 09/05/17 07:40 - General Post-Op/Procedure Note Date of Surgery/Procedure: 09/05/17 Operative Procedure(s): section primary low transverse lower uterine segment Pre Op Diagnosis: Preeclampsia with severe features, type 1 diabetes, nonreassuring heart rate pattern Post-Op Diagnosis: Same Anesthesia Technique: Epidural Primary Surgeon: Rolando Wylie Secondary Surgeon: Liat Mcmahna Anesthesia Provider: Aaliyah Jacobs (Suze Callejas SMASH FIXER) Copyright Clerk: Pete Crespo (PAS) Reason Copyright Clerk Was Necessary: Difficulty of procedure, retraction, decrease comorbidity and comortality Role of Copyright Clerk: Difficulty of procedure, retraction, decrease comorbidity and comortality Fluid Replacement, Intraop: 1,200 Output, Urine Amount: 150 EBL in mLs: 1,200 Drain/Tube Comments:: Guidry Complications: None Condition: Good Free Text/Narrative:: Intake & Output 09/04/17 09/05/17 09/05/17 22:59 06:59 14:59 Intake Total 1150 Output Total 375 Balance 775 Patient was transported to operating room and placed under epidural anesthesia in the supine position with wedge under the right hip and right flank. SCDs in place and functioning prior surgery. Patient received clindamycin 900 mg and gentamicin 450 mg IV preop. Patient was prepared and draped in a sterile fashion. Timeout was performed confirming name, date of , procedure as section. Adequate level of anesthesia was confirmed and 20 mL of 0.5% Marcaine without epinephrine injection area of the planned incision the planned incision was marked with marking pen. was brought to the operating room. Pfannenstiel incision was made and care was sharp section to into the anterior fascia. Peritoneal cavity was entered without difficulty. Bladder flap created pushed caudad. Low segment transverse performed with clear amniotic fluid upon entry into the amnionic cavity. The infant was delivered with the assistance of vacuum extraction times one in the green for less than 20 seconds. The female liveborn delivered on Sunday09/05/[address] Culver incendiary powder mixer in attendance. Weight 6 lbs. 11 oz. Apgars 5/7/9 at 1/5/10 minutes respectively. The initial 5 suspected related to the magnesium sulfate required to help control her hyperactivity related to -induced hypertension. Nuchal cord times one. Cord blood was collected and placenta removal was manual. There was a velamentous insertion of the cord. Lita cavity was inspected and remnants of membranes and placenta were removed. Cervical patency was assured. The uterus exteriorization was assisted with the vacuum extraction. Sponge needle pack asthma count correct times one and the uterine incision closed with running locking suture of #1 Monocryl beginning on the patient's left side because of a large venous sinus that was bleeding. This was brought to the midline and tied. Same procedure carried out on the right side. Second layer of horizontal imbricating suture modified Lembert type is 0 Monocryl. Both tubes and ovaries were normal clots were cleaned from the gutters and cul-de-sac uterus replaced into the abdominal cavity. The uterine incision inspected no bleeding. Sponge needle pack asthma sharp count correct 2. The abdominal cavity was closed with #1 PDS for the anterior fascia. The subcutaneous tissue was closed with 3-0 Monocryl Sumanth needle subcuticular suture. Dermabond Preneo applied. Clots were cleaned from the vagina at the end the procedure. Patient was transported postanesthesia care unit in satisfactory condition no blood transfusions were required. The insulin pump had been removed prior to surgery this will be reinserted after surgery in the PACU. Patient will be continued on magnesium sulfate for 24 hours because of her -induced hypertension with severe features. (Preeclampsia with severe features). Blood sugar prior surgery was 121 at 0700 hrs. Brief History: Managing BP with Procardia XL 30 mg daily not sufficient will increase to BID. Would like to have Patient at least 24 more hours but patient refuses stay. Discussed possibility of seizure at home. Patient managing her diabetes with her insulin pump and will contact Melisa Colin for instructions and management. See Dr. Herndon Sunday09/12/17 for a pressure check and additional recommendation if any. [facility] . Post- Op/Procedure Note. Patient Name: SHANICE AU Record Number: [id number]. Date of : 88Patient Status: Inpatient. Attending Provider: Rolando Wylieount Number: [id number]. Date: 09/05/17 07: 40Initialization Date: 09/05/17 07:40. - General Post-Op/Procedure Note. Date of Surgery/Procedure: 09/05/17. Operative Procedure(s): section primary low transverse lower uterine segment. Pre Op Diagnosis: Preeclampsia with severe features, type 1 diabetes, nonreassuring heart rate pattern. Post-Op Diagnosis: Same. Anesthesia Technique: Epidural. Primary Surgeon: Rolando Wylie. Secondary Surgeon: Liat Mcmahan. Anesthesia Provider: Aaliyah Jacobs (Suze Callejas SMASH FIXER). Copyright Clerk: Pete Crespo (PAS). Reason Copyright Clerk Was Necessary: Difficulty of procedure, retraction, decrease comorbidity and comortality. Role of Copyright Clerk: Difficulty of procedure, retraction, decrease comorbidity and comortality. Fluid Replacement, Intraop: 1 ,200. Output, Urine Amount: 150. EBL in mLs: 1,200. Drain/Tube Comments:: Guidry. Complications: None. Condition: Good. Free Text/Narrative:: Intake & Output. 09/04/180212/1802. [id number]. Intake [id number]. Output [id number]. [id number]. Patient was transported to operating room and placed under epidural anesthesia in the supine position with wedge under the right hip and right flank. SCDs in place and functioning prior surgery. Patient received clindamycin 900 mg and gentamicin 450 mg IV preop. Patient was prepared and draped in a sterile fashion. Timeout was performed confirming name, date of , procedure as section. Adequate level of anesthesia was confirmed and 20 mL of 0.5% Marcaine without epinephrine injection area of the planned incision the planned incision was marked with marking pen. was brought to the operating room. Pfannenstiel incision was made and care was sharp section to into the anterior fascia. Peritoneal cavity was entered without difficulty. Bladder flap created pushed caudad. Low segment transverse C -section performed with clear amniotic fluid upon entry into the amnionic cavity. The infant was delivered with the assistance of vacuum extraction times one in the green for less than 20 seconds. The female liveborn delivered on Sunday09/05/[address] Culver incendiary powder mixer in attendance. Weight 6 lbs. 11 oz. Apgars 5/7/9 at 1/5/10 minutes respectively. The initial 5 suspected related to the magnesium sulfate required to help control her hyperactivity related to -induced hypertension. Nuchal cord times one. Cord blood was collected and placenta removal was manual. There was a velamentous insertion of the cord. Lita cavity was inspected and remnants of membranes and placenta were removed. Cervical patency was assured. The uterus exteriorization was assisted with the vacuum extraction. Sponge needle pack asthma count correct times one and the uterine incision closed with running locking suture of #1 Monocryl beginning on the patient's left side because of a large venous sinus that was bleeding. This was brought to the midline and tied. Same procedure carried out on the right side. Second layer of horizontal imbricating suture modified Lembert type is 0 Monocryl. Both tubes and ovaries were normal clots were cleaned from the gutters and cul-de-sac uterus replaced into the abdominal cavity. The uterine incision inspected no bleeding. Sponge needle pack asthma sharp count correct 2. The abdominal cavity was closed with #1 PDS for the anterior fascia. The subcutaneous tissue was closed with 3-0 Monocryl Sumanth needle subcuticular suture. Dermabond Preneo applied. Clots were cleaned from the vagina at the end the procedure. Patient was transported postanesthesia care unit in satisfactory condition no blood transfusions were required. The insulin pump had been removed prior to surgery this will be reinserted after surgery in the PACU. Patient will be continued on magnesium sulfate for 24 hours because of her -induced hypertension with severe features. (Preeclampsia with severe features). Blood sugar prior surgery was 121 at 0700 hrs. - Discharge Data Discharge Date: 09/07/17 Discharge Disposition: Home, Self-Care 01 Condition: Good - Discharge Diagnosis/Problem(s) (1) 37 weeks gestation of SNOMED Code(s): 62924667 ICD Code: Z3A.37 - 37 WEEKS GESTATION OF Status: Acute Current Visit: Yes (2) Pre-existing type 1 diabetes mellitus during in third trimester SNOMED Code(s): 838391954 ICD Code: O24.013 - PRE-EXISTING TYPE 1 DIABETES, IN , THIRD TRIMESTER Status: Acute Current Visit: Yes (3) Pre-eclampsia, severe, third trimester SNOMED Code(s): 29081229 ICD Code: O14.13 - SEVERE PRE-ECLAMPSIA, THIRD TRIMESTER Status: Acute Current Visit: Yes - Patient Summary/Data Operative Procedure(s) Performed: section primary low transverse lower uterine segment Complications: Blood pressure management, Procardia XL 30 mg daily not sufficient will increase to 30 mg twice a day. Patient refused to stay an extra 24 hours to allow management of blood pressure. She states she will take her blood pressure at home. Struck to to return if present 140/90 on 2 occasions more than 2 hours apart. R severe headaches and blurred vision double vision or right upper quadrant pain or jitteriness Consults: None Hospital Course: Some difficulty managing blood pressure utilizing Procardia 30 mg XL one daily will increase to twice a day. Patient refused additional 24 hours to allow corrective measures for blood pressure management. Patient cautioned about comorbidity at home including seizure and having to return to the hospital as an emergency. If any blood pressure greater 140/90 2R the part or severe headaches blurred vision double vision or problems returned for follow-up. - Patient Instructions Diet: Low Sodium Driving: Do Not Drive (2 weeks or for 48 hours after last Percocet and until okayed by Dr. Herndon.) Showering/Bathing: May Shower, No Tub Bathing/Swimming (6 weeks) Wound/Incision Care: Keep Operative Site/Wound Site Clean and Dry Notify Provider of: Fever, Increased Pain, Swelling and Redness, Drainage, Nausea and/or Vomiting - Discharge Plan Prescriptions/Med Rec: Acetaminophen/oxyCODONE [Percocet 325-5 MG] 1 tab PO Q6H PRN #20 tablet PRN Reason: Pain (Moderate 4-6) niCARdipine [Cardene] 30 mg PO BID #60 cap Home Medications: Home Meds Acetaminophen/oxyCODONE [Percocet 325-5 MG] 1 tab PO Q6H PRN #20 tablet [Rx] Docusate Sodium [Colace] 100 mg PO Q12H PRN cap 09/07/17 [Rx] Ibuprofen [IJD: Ibuprofen] 600 mg PO Q6H PRN tablet 09/07/17 [Rx] Lanolin [Lansinoh HPA] 1 applic TOP ASDIRECTED PRN tube 09/07/17 [Rx] Simethicone 160 mg PO QID tab.chew 09/07/17 [Rx] niCARdipine [Cardene] 30 mg PO BID #60 cap 09/07/17 [Rx] Referrals: Marino Herndon MD [Physician] - (Appointment to see him on Sunday09/12/17. ) - Discharge Summary/Plan Comment DC Time >30 min.: No - Patient Data Vitals - Most Recent: Last Vital Signs Temp 99.0 F 09/07/17 07:53 Pulse 93 09/07/17 07:53 Resp 14 09/07/17 07:53 BP 142/85 H 09/07/17 08:51 Pulse Ox 98 09/07/17 07:53 Weight - Most Recent: 190 lb I&O - Last 24 hours: Intake & Output 09/06/17 09/07/17 09/07/17 22:59 06:59 14:59 Intake Total 800 1400 200 Output Total 2200 2700 Balance -1400 -1300 200 Lab Results - Last 24 hrs: Laboratory Results - last 24 hr 09/07/17 09/07/17 Range/Units 06:55 06:55 WBC 13.54 H (3.98-10.04) K/mm3 RBC 3.41 L (3.98-5.22) M/mm3 Hgb 9.6 L (11.2-15.7) gm/L Hct 29.5 L (34.1-44.9) % MCV 86.5 (79.4-94.8) fl MCH 28.2 (25.6-32.2) pg MCHC 32.5 (32.2-35.5) g/dl RDW Std Deviation 39.0 (36.4-46.3) fL Plt Count 233 (182-369) K/mm3 MPV 11.3 (9.4-12.3) fl Neut % (Auto) 80.8 H (34.0-71.1) % Lymph % (Auto) 13.0 L (19.3-51.7) % Beadle % (Auto) 5.5 (4.7-12.5) % Eos % (Auto) 0.4 L (0.7-5.8) Baso % (Auto) 0.1 (0.1-1.2) % Neut # (Auto) 10.94 H (1.56-6.13) K/mm3 Lymph # (Auto) 1.76 (1.18-3.74) K/mm3 Beadle # (Auto) 0.75 H (0.24-0.36) K/mm3 Eos # (Auto) 0.05 (0.04-0.36) K/mm3 Baso # (Auto) 0.01 (0.01-0.08) K/mm3 Sodium 139 (136-145) mEq/L Potassium 3.9 (3.5-5.1) mEq/L Chloride 106 (98-107) mEq/L Carbon Dioxide 25 (21-32) mEq/L Anion Gap 11.9 (5-15) BUN 8 (7-18) mg/dL Creatinine 0.7 (0.55-1.02) mg/dL Est Cr Clr Drug Dosing 112.01 mL/min Estimated GFR (MDRD) > 60 (>60) mL/min BUN/Creatinine Ratio 11.4 L (14-18) Glucose 84 (74-106) mg/dL Calcium 7.5 L (8.5-10.1) mg/dL Total Bilirubin 0.2 (0.2-1.0) mg/dL AST 28 (15-37) U/L ALT 14 (14-59) U/L Alkaline Phosphatase 89 (46-116) U/L Total Protein 6.2 L (6.4-8.2) g/dl Albumin 2.3 L (3.4-5.0) g/dl Globulin 3.9 gm/dL Albumin/Globulin Ratio 0.6 L (1-2) Med Orders - Current: Current Medications Diphenhydramine HCl (Benadryl) 25 mg IVPUSH Q6H PRN PRN Reason: Itching or Nausea Docusate Sodium (Colace) 100 mg PO Q12H PRN PRN Reason: Constipation Emollient Ointment (Lansinoh Hpa) 0 gm TOP ASDIRECTED PRN PRN Reason: Sore Nipples Ephedrine Sulfate (Ephedrine Sulfate) 5 mg IVPUSH SEECOMMENT PRN PRN Reason: Other Hydroxyzine HCl (Atarax) 50 mg PO BEDTIME [facility] Last Admin: 09/06/17 22:58 Dose: 50 mg Promethazine HCl 12.5 mg/ (Sodium Chloride) 50.5 mls @ 100 mls/hr IV Q6H PRN PRN Reason: Nausea Last Admin: 09/05/17 18:00 Dose: 100 mls/hr Ibuprofen (Motrin) 600 mg PO Q6H PRN PRN Reason: mild pain or fever Last Admin: 09/07/17 05:10 Dose: 600 mg Miscellaneous Information (Remove Patch) 0 ea TRDERM ONETIME ONE Stop: 09/08/17 10:31 Naloxone HCl (Narcan) 0.1 mg IVPUSH SEECOMMENT PRN PRN Reason: Respiratory Depression Nifedipine (Procardia Xl) 30 mg PO DAILY [facility] Last Admin: 09/07/17 08:51 Dose: 30 mg Ondansetron HCl (Zofran) 4 mg IV Q4H PRN PRN Reason: Nausea/Vomiting Oxycodone/Acetaminophen (Percocet 325-5 Mg) 2 tab PO Q4H PRN PRN Reason: Pain (moderate 4-6) Last Admin: 09/07/17 08:53 Dose: 1 tab Pantoprazole Sodium (Protonix) 40 mg PO 0730 [facility] Last Admin: 09/06/17 06:41 Dose: 40 mg Scopolamine (Scopolamine) 1 each TRDERM Q72H PRN PRN Reason: Nausea Last Admin: 09/05/17 12:44 Dose: 1 each Simethicone (Simethicone) 160 mg PO QID [facility] Last Admin: 09/07/17 08:52 Dose: 80 mg Sodium Chloride (Saline Flush) 10 ml FLUSH ASDIRECTED PRN PRN Reason: Keep Vein Open Last Admin: 09/05/17 17:56 Dose: 10 ml Sodium Chloride (Saline Flush) 10 ml FLUSH ASDIRECTED PRN PRN Reason: Keep Vein Open Discontinued Medications Acetaminophen (Tylenol) 650 mg PO Q6H PRN PRN Reason: Headache Last Admin: 09/04/17 21:47 Dose: 650 mg Bupivacaine HCl (Marcaine 0.5%) Confirm Administered Dose 30 ml .ROUTE .STK-MED ONE Stop: 09/05/17 06:01 Last Admin: 09/05/17 07:19 Dose: 20 ml Bupivacaine HCl (Sensorcaine-Mpf 0.25%) 10 ml .ROUTE .STK-MED ONE Stop: 09/05/17 09:01 Citric Acid/Sodium Citrate (Bicitra Solution) 30 ml PO ONETIME ONE Stop: 09/05/17 05:55 Last Admin: 09/05/17 06:06 Dose: 30 ml Clindamycin Phosphate (Cleocin) Confirm Administered Dose 900 mg .ROUTE .[facility]- MED ONE Stop: 09/05/17 05:51 Last Admin: 09/05/17 17:28 Dose: Not Given Diphenhydramine HCl (Benadryl) 25 mg IVPUSH Q6H PRN PRN Reason: pruritis Ephedrine Sulfate (Ephedrine Sulfate) 5 mg IVPUSH ASDIRECTED PRN PRN Reason: Hypotension Ephedrine Sulfate (Ephedrine Sulfate) 5 mg IVPUSH ASDIRECTED PRN PRN Reason: Hypotension Fentanyl (Sublimaze) 100 mcg EPIDUR Q3H PRN PRN Reason: Pain Last Admin: 09/05/17 01:10 Dose: 100 mcg Fentanyl (Sublimaze) Confirm Administered Dose 100 mcg .ROUTE .ST-MED ONE Stop: 09/05/17 06:28 Fentanyl (Sublimaze) 50 mcg IVPUSH Q5M PRN PRN Reason: Pain Fentanyl/Bupivacaine HCl (Fentanyl/Bupivacaine/Ns 2 Mcg-0.125% 100 Ml) 100 ml EPIDUR ASDIRECTED [facility] Last Admin: 09/05/17 01:10 Dose: 100 ml Gentamicin Sulfate (Gentamicin) Confirm Administered Dose 480 mg .ROUTE .STK- MED ONE Stop: 09/05/17 05:50 Last Admin: 09/05/17 05:49 Dose: 480 mg Lactated Ringer's (Ringers, Lactated) 1,000 mls @ 75 mls/hr IV ASDIRECTED [facility] Last Admin: 09/05/17 16:22 Dose: 75 mls/hr Oxytocin 20 unit/ Lactated (Ringer's) 1,002 mls @ 500 mls/hr IV ASDIRECTED EDDIE PRN Reason: Protocol Magnesium Sulfate (Magnesium Sulfate 40 Gm In Water 1000 Ml) 40 gm in 1,000 mls @ 50 mls/hr IV ASDIRECTED EDDIE Last Admin: 09/05/17 20:18 Dose: 50 mls/hr Magnesium Sulfate 4 gm/ Premix 100 mls @ 400 mls/hr IV ONETIME ONE Stop: 09/04/17 17:06 Last Admin: 09/04/17 23:20 Dose: 400 mls/hr Magnesium Sulfate 2 gm/ Premix 50 mls @ 300 mls/hr IV ONETIME ONE Stop: 09/04/17 17:06 Last Admin: 09/04/17 23:02 Dose: 300 mls/hr Magnesium Sulfate (Magnesium Sulfate 4 Gm In Water 100 Ml) Confirm Administered Dose 100 mls @ as directed .ROUTE .STK-MED ONE Stop: 09/04/17 22:56 Last Admin: 09/04/17 23:23 Dose: Not Given Magnesium Sulfate (Magnesium Sulfate 2 Gm In Water 50 Ml) Confirm Administered Dose 50 mls @ as directed .ROUTE .STK-MED ONE Stop: 09/04/17 22:57 Last Admin: 09/04/17 23:23 Dose: Not Given Oxytocin/Lactated Ringer's (Pitocin In Lr 10 Units/1,000 Ml) 10 unit in 1,000 mls @ 12 mls/hr IV TITRATE EDDIE; 2 MUNITS/MIN PRN Reason: Protocol Last Titration: 09/05/17 05:19 Dose: 0 munits/min, 0 mls/hr Lactated Ringer's (Ringers, Lactated) Confirm Administered Dose 2,000 mls @ as directed .ROUTE .STK-MED ONE Stop: 09/05/17 06:28 Sodium Chloride (Normal Saline) Confirm Administered Dose 100 mls @ as directed .ROUTE .STK-MED ONE Stop: 09/05/17 06:23 Last Admin: 09/05/17 17:28 Dose: Not Given Phenylephrine HCl 1 mg/ Sodium (Chloride) 10.1 mls @ 1 mls/sec IV TITRATE EDDIE PRN Reason: Protocol Promethazine HCl 6.25 mg/ (Sodium Chloride) 50.25 mls @ 100 mls/hr IV ONETIME PRN PRN Reason: Nausea/Vomiting Last Admin: 09/05/17 08:10 Dose: 100 mls/hr Dextrose/Lactated Ringer's (Dextrose 5%-Lactated Ringers) 1,000 mls @ 125 mls/ hr IV ASDIRECTED [facility] Stop: 09/05/17 18:20 Last Admin: 09/05/17 17:28 Dose: Not Given Lactated Ringer's (Ringers, Lactated) Confirm Administered Dose 1,000 mls @ as directed .ROUTE .STK-MED ONE Stop: 09/05/17 16:15 Last Admin: 09/05/17 17:21 Dose: Not Given Lactated Ringer's (Ringers, Lactated) 1,000 mls @ 75 mls/hr IV ASDIRECTED [facility] Last Admin: 09/06/17 01:45 Dose: 75 mls/hr Ketorolac Tromethamine (Toradol) Confirm Administered Dose 30 mg .ROUTE .STK- MED ONE Stop: 09/05/17 06:28 Ketorolac Tromethamine (Toradol) 30 mg IVPUSH Q6H [facility] Stop: 09/06/17 01:01 Last Admin: 09/06/17 00:51 Dose: 30 mg Lidocaine HCl (Xylocaine 1%) 50 ml INJECT ONETIME ONE Stop: 09/04/17 16:28 Last Admin: 09/05/17 17:28 Dose: Not Given Lidocaine/Epinephrine (Xylocaine-Mpf 2%-Epi 1:200,000) Confirm Administered Dose 20 ml .ROUTE .STK-MED ONE Stop: 09/05/17 06:28 Meperidine HCl (Demerol) 12.5 mg IVPUSH ONETIME PRN PRN Reason: shivering Meperidine HCl (Demerol) Confirm Administered Dose 50 mg .ROUTE .STK-MED ONE Stop: 09/05/17 07:30 Metoclopramide HCl (Reglan) 10 mg IVPUSH ONETIME ONE Stop: 09/05/17 05:55 Last Admin: 09/05/17 06:06 Dose: 10 mg Misoprostol (Cytotec) 25 mcg VAG Q4H [facility] Stop: 09/05/17 01:01 Last Admin: 09/05/17 02:01 Dose: Not Given Misoprostol (Cytotec) Confirm Administered Dose 25 mcg .ROUTE .STK-MED ONE Stop: 09/04/17 17:44 Last Admin: 09/04/17 17:50 Dose: Not Given Misoprostol (Cytotec) Confirm Administered Dose 25 mcg .ROUTE .STK-MED ONE Stop: 09/04/17 21:45 Last Admin: 09/04/17 21:48 Dose: Not Given Morphine Sulfate (Duramorph Pf) Confirm Administered Dose 1 mg .ROUTE .STK-MED ONE Stop: 09/05/17 06:00 Nalbuphine HCl (Nubain) 10 mg IVPUSH Q2H PRN PRN Reason: Pain (moderate 4-6) Nifedipine (Procardia) 10 mg PO NOW STA Stop: 09/06/17 22:36 Last Admin: 09/06/17 22:57 Dose: 10 mg Ondansetron HCl (Zofran) 4 mg IVPUSH Q4H PRN PRN Reason: Nausea/Vomiting Last Admin: 09/05/17 00:35 Dose: 4 mg Ondansetron HCl (Zofran) 4 mg IVPUSH ONETIME PRN PRN Reason: Nausea/Vomiting Ondansetron HCl (Zofran) Confirm Administered Dose 4 mg .ROUTE .STK-MED ONE Stop: 09/05/17 06:28 Ondansetron HCl (Zofran) 4 mg IVPUSH ONETIME PRN PRN Reason: Nausea/Vomiting Oxytocin (Pitocin) Confirm Administered Dose 20 unit .ROUTE .STK-MED ONE Stop: 09/05/17 06:28 Phenylephrine HCl (Zoran-Synephrine) Confirm Administered Dose 10 mg .ROUTE .STK- MED ONE Stop: 09/05/17 06:28 Sodium Chloride (Saline Flush) 10 ml FLUSH ASDIRECTED PRN PRN Reason: Keep Vein Open *Q Meaningful Use (DIS) - VTE *Q VTE Criteria *Q: - Stroke *Q Stroke Criteria *Q: - AMI *Q AMI Criteria *Q:
[2017-09-07 13:51] VITALS: BP 141/81
== END 2017-09-07 15:23 | disposition home or self-care (01) | DRG 540 ==
LOC: JD.OBCHECK 15:51 → JD.OB 15:52 → JD.OBCHECK 16:26 → JD.OB 16:27 → OBSVTOIN 09-05 06:58
PROVIDERS: ADMIT Obstetrics & Gynecology; ATTEND Obstetrics & Gynecology
PROC: 10D00Z1 Extraction of Products of Conception, Low, Open Approach (ICD-10-PCS; principal; 2017-09-05)
PROC: 3E033VJ Introduction of Other Hormone into Peripheral Vein, Percutaneous Approach (ICD-10-PCS; 2017-09-05)
DX: O14.14 Severe pre-eclampsia complicating childbirth (principal); O24.02 Pre-existing type 1 diabetes mellitus, in childbirth; E10.9 Type 1 diabetes mellitus without complications; O26.90 Pregnancy related conditions, unspecified, unspecified trimester; R80.9 Proteinuria, unspecified; Z3A.37 37 weeks gestation of pregnancy; Z37.0 Single live birth; Z79.4 Long term (current) use of insulin; Z96.41 Presence of insulin pump (external) (internal); O76 Abnormality in fetal heart rate and rhythm complicating labor and delivery
CPT/HCPCS: 36415; 51702; 76816; 76819; 76819-26; 80053; 82565; 82962; 83615; 83735; 84450; 84460; 84520; 84550; 85025; 85362; 85384; 85730; 86850; 86900; 86901; 94762; A9270-GY; J1580; J1885; J2175; J2274; J2370; J2405; J2550; J2590; J2765; J3010; J3475; J7050; J7120

== ENCOUNTER 2017-10-01 05:35 | Emergency (ER) | payer BC ==
[2017-10-01 05:49] VITALS: BP 147/98
--- NOTE | 2017-10-01 06:27 | EDM.PDOC ---
ED HPI GENERAL MEDICAL PROBLEM - General Chief Complaint: Abdominal Pain Stated Complaint: ABDOMINAL PAIN Time Seen by Provider: 10/01/17 06:19 Source of Information: Reports: Patient History Limitations: Reports: No Limitations - History of Present Illness INITIAL COMMENTS - FREE TEXT/NARRATIVE: 27-year-old female presents to the ED with diffuse lower abdominal pain with a strong colicky component. She states that it started yesterday but progressed overnight to become much more severe. She had a carried out on August 08 and has done very well post procedure. Current pain however is along the scar. She has chronic pain in her back no worse than what she experienced during the . No associated fever chills mild associated nausea due to the intensity of the pain. She has not used any narcotic pain medication since about 3-4 days after . She's been using Motrin only. He is insulin-dependent diabetic and has an insulin pump right lower quadrant apparently has been working well. States it hurts to bear down i.e. to push to have a bowel movement. Bowel movements been coming daily with no blood and she feels they are not bad hard to pass. No genitourinary complaints. Onset: Sudden Onset Date: 09/30/17 (Did have some lower abdominal discomfort last night was able to sleep for a period time but awoke with increased pain this morning.) Duration: Hour(s): Location: Reports: Abdomen (Diffuse pain lower abdomen with a strong colicky component.) Quality: Reports: Sharp, Stabbing, Other Severity: Severe (OT type pain) Improves with: Reports: None ( 8 out of 10 at present) Worsens with: Reports: None Context: Reports: Other (Without complication.). Denies: Activity, Exercise, Lifting, Sick Contact Associated Symptoms: Reports: Loss of Appetite, Nausea/Vomiting. 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) Lower Abdominal Pain Score (Numeric/FACES): 7 - Related Data Allergies Allergy/AdvReac Type Severity Reaction Status Date / Time cefaclor [From Ceclor] Allergy Cannot Verified 10/01/17 05:49 Remember Home Meds: Home Meds Docusate Sodium [Colace] 100 mg PO Q12H PRN cap 09/07/17 [Rx] Ibuprofen [IJD: Ibuprofen] 600 mg PO Q6H PRN tablet 09/07/17 [Rx] Lanolin [Lansinoh HPA] 1 applic TOP ASDIRECTED PRN tube 09/07/17 [Rx] Simethicone 160 mg PO QID tab.chew 09/07/17 [Rx] 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: Endocrine/Metabolic History: Reports: Diabetes, Type I (Controlled with an insulin pump which is been working well for her.) Other Endocrine/Metabolic History: Has own insulin pump and glucometer - Past Surgical History Endocrine Surgical History: Reports: None Social & Family History - Family History Family Medical History: Noncontributory - Tobacco Use Smoking Status *Q: Never Smoker Second Hand Smoke Exposure: No - Caffeine Use Caffeine Use: Reports: Coffee - Recreational Drug Use Recreational Drug Use: No - Living Situation & Occupation Living situation: Reports: Occupation: Unemployed (At home with new baby.) ED ROS GENERAL - Review of Systems Review Of Systems: See Below Constitutional: Reports: Fatigue, Decreased Appetite. Denies: Fever, Chills, Weight Loss HEENT: Reports: No Symptoms Respiratory: Reports: No Symptoms Cardiovascular: Reports: No Symptoms Endocrine: Reports: No Symptoms GI/Abdominal: Reports: Abdominal Pain, Other (Still passing flatus.). Denies: Constipation (See history of present illness), Diarrhea, Decreased Appetite, Difficulty Swallowing, Distension, Flatus, Hematochezia, Melena, Stool Incontinence : Reports: No Symptoms Musculoskeletal: Reports: Back Pain (Has chronic low back pain she states no worse than it was during the .) Skin: Reports: Other Neurological: Reports: No Symptoms ( wound is healing well) Psychiatric: Reports: No Symptoms ED EXAM, GI/ABD - Physical Exam Exam: See Below Exam Limited By: No Limitations General Appearance: Alert, WD/WN, No Apparent Distress, Anxious, Moderate Distress (Mildly anxious in obvious discomfort.) Eyes: Bilateral: Normal Appearance (With no jaundice. Perhaps mild anemia.), Pale Conjunctiva (Mild bilaterally) Respiratory/Chest: No Respiratory Distress, Lungs Clear, Normal Breath Sounds, No Accessory Muscle Use Cardiovascular: Normal Peripheral Pulses, Regular Rate, Rhythm, No Edema, No Gallop, No Murmur GI/Abdominal Exam: Guarding (Around her wound.), Abnormal Bowel Sounds (Bowel sounds are high hyperactive in all 4 quadrants. She has her insulin pump right lower quadrant of the abdomen. scar appears to be healing well. She is however very tender throughout the abdomen particularly around the scar even to light percussion suggesting possible underlying peritonitis. However she is afebrile at this time.). No: No Distention, No Abnormal Bruit, No Mass, Pelvis Stable, Distended Back Exam: Normal Inspection, Full Range of Motion. No: CVA Tenderness (L), CVA Tenderness (R) Extremities: Normal Inspection, Normal Range of Motion, Non-Tender, No Pedal Edema Neurological: Alert, Oriented, CN II-XII Intact, Normal Cognition Psychiatric: Normal Affect, Normal Mood Skin Exam: Warm, Dry, Intact, Normal Color, No Rash Course - Vital Signs Last Recorded V/S: Last Vital Signs Temp 36.7 C 10/01/17 05:43 Pulse 100 10/01/17 05:43 Resp 16 10/01/17 05:43 BP 147/98 H 10/01/17 05:43 Pulse Ox 98 10/01/17 05:43 - Orders/Labs/Meds Orders: Active Orders 24 hr Category Date Time Status URINALYSIS W/MICROSCOPIC [UA W/MICROSCOPIC] [URIN] Stat Lab 10/01/17 07:00 Ordered Labs: Laboratory Tests 10/01/17 10/01/17 10/01/17 Range/Units 06:30 06:30 07:00 WBC 10.74 H (3.98-10.04) K/mm3 RBC 4.51 (3.98-5.22) M/mm3 Hgb 12.2 (11.2-15.7) gm/L Hct 37.6 (34.1-44.9) % MCV 83.4 (79.4-94.8) fl MCH 27.1 (25.6-32.2) pg MCHC 32.4 (32.2-35.5) g/dl RDW Std Deviation 38.0 (36.4-46.3) fL Plt Count 335 (182-369) K/mm3 MPV 10.5 (9.4-12.3) fl Neutrophils % (Manual) 81 H (40-60) % Band Neutrophils % 0 (0-10) % Lymphocytes % (Manual) 18 L (20-40) % Atypical Lymphs % 0 % Monocytes % (Manual) 1 L (2-10) % Eosinophils % (Manual) 0 L (0.7-5.8) % Basophils % (Manual) 0 L (0.1-1.2) Platelet Estimate Adequate RBC Morph Comment Normal Sodium 143 (136-145) mEq/L Potassium 3.8 (3.5-5.1) mEq/L Chloride 106 (98-107) mEq/L Carbon Dioxide 24 (21-32) mEq/L Anion Gap 16.8 H (5-15) BUN 10 (7-18) mg/dL Creatinine 0.7 (0.55-1.02) mg/dL Est Cr Clr Drug Dosing 112.01 mL/min Estimated GFR (MDRD) > 60 (>60) mL/min BUN/Creatinine Ratio 14.3 (14-18) Glucose 159 H (74-106) mg/dL Calcium 8.6 (8.5-10.1) mg/dL Total Bilirubin 0.6 (0.2-1.0) mg/dL AST 14 L (15-37) U/L ALT 14 (14-59) U/L Alkaline Phosphatase 73 (46-116) U/L C-Reactive Protein 1.5 H* (<1.0) mg/dL Total Protein 7.2 (6.4-8.2) g/dl Albumin 3.6 (3.4-5.0) g/dl Globulin 3.6 gm/dL Albumin/Globulin Ratio 1.0 (1-2) Lipase 86 (73-393) U/L Urine Color Yellow (Yellow) Urine Appearance Clear (Clear) Urine pH 6.0 (5.0-8.0) Ur Specific Husser 1.020 (1.005-1.030) Urine Protein 1+ H (Negative) Urine Glucose (UA) Negative (Negative) Urine Ketones Negative (Negative) Urine Occult Blood 2+ H (Negative) Urine Nitrite Negative (Negative) Urine Bilirubin Negative (Negative) Urine Urobilinogen 0.2 (0.2-1.0) Ur Leukocyte Esterase Negative (Negative) Urine RBC 0-5 (0-5) /hpf Urine WBC 0-5 (0-5) /hpf Ur Epithelial Cells 0-5 (0-5) /hpf Urine Bacteria Not seen (FEW) /hpf Urine Mucus Not seen (FEW) /hpf Meds: Medications Discontinued Medications Generic Name Dose Route Start Last Admin Trade Name Letha PRN Reason Stop Dose Admin Hydromorphone HCl 0.5 mg 10/01/17 06:28 10/01/17 06:39 Dilaudid IVPUSH 10/01/17 06:29 0.5 mg ONETIME ONE Administration Dextrose/Sodium Chloride 1,000 mls @ 500 mls/hr 10/01/17 06:30 10/01/17 06:49 Dextrose 5%-Normal Saline IV 500 mls/hr ASDIRECTED EDDIE Administration Magnesium Citrate 210 ml 10/01/17 08:09 10/01/17 08:28 Citrate Of Magnesia PO 10/01/17 08:10 210 ml ONETIME ONE Administration Ondansetron HCl 4 mg 10/01/17 06:28 10/01/17 06:39 Zofran IVPUSH 10/01/17 06:29 4 mg ONETIME ONE Administration - Radiology Interpretation Free Text/Narrative:: 27-year-old female presents to the ED with worsening lower abdominal pain over the last 24 hours. Of note she has nearly a month out from having a . The wound appears to be healing adequately but a lot of her pain is around the C -section the lower abdomen. Examination shows her to be afebrile with stable vital signs. Bowel sounds are very active in all 4 quadrants suggesting intestinal colic type pain. Current pain is rated as 8 out of 10. She states she 's been having a bowel movement daily but it hurts to push or to bear down. No genitourinary complaints. Plan routine labs to be obtained including a CRP and a urinalysis. The KUB will be done initially. I it's unlikely that she has any development of a pelvic abscess that she is afebrile. Her diabetes poses a bit of a potential for complications. Active bowel sounds suggest bowels trying to push something along. The KUB will be done. IV will be D5 normal saline at 500 mils per hour. Will be given Dilaudid 0.5 mg IV with Zofran 4 mg IV for pain and nausea relief. - Re-Assessments/Exams Free Text/Narrative Re-Assessment/Exam: 10/01/17: 0700: KUB reveals increased stool throughout the transverse colon and left descending colon. The rectal vault is actually empty. Will await labs. 10/01/17 07:51 Labs are back. White count is mildly elevated at 10.74 with 81% neutrophils and no bands reported. This may be a stress response. Hemoglobin is 12.2 with hematocrit of 37.6. Blood count is 335,000. Sodium is 143 with a potassium of 3.8. Chloride is 106 with a bicarbonate of 24. And a gap is mildly elevated at 16.8. BUN is 10 with a creatinine of 0.7. Glucose is elevated at 159. Calcium is 8.6. Total bilirubin 0.6. AST is 14 ALT is 14 alkaline phosphatase is normal at 73 C-reactive protein is 1.5. Lipase is normal at 86. Urinalysis shows 1+ protein 2+ occult blood leukocyte esterase is negative.. Micro-is also negative for any signs of infection. Therefore I suspect constipation is the major issue. I'm going to send her home with Citroma to take 7 ounces mixed with juice of choice as she has a diabetic cranberry juice that she can use as she is type I diabetic. She was advised that if her abdominal pain is not markedly improved after bowel cleanse or worsens over the next 6-12 hours then she is to return to the ED for further evaluation by way of CT scan of the abdomen as early appendicitis could be missed. 10/01/17: In receipt of Dr Rosas( radioloigsts ) report on her KUB. 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 patient notified of this finding which I did not appreciate on my review of this X-ray . Will get her set up with an appointment with orthopeic surgeon Dr Orlando next week. CT required? Risk of pathalogical fracutre? Departure - Departure Time of Disposition: 08:10 Disposition: Home, Self-Care 01 Condition: Fair Clinical Impression: Constipation by delayed colonic transit Abdominal pain Qualifiers: Abdominal location: lower abdomen, unspecified Qualified Code(s): R10.30 - Lower abdominal pain, unspecified - Discharge Information Instructions: Constipation, Adult, Abdominal Pain, Adult, [id number] Referrals: Marino Herndon MD [Primary Care Provider] - Forms: ED Department Discharge Additional Instructions: Evaluation the emergency room this morning in regards to diffuse lower abdominal pain that developed last night but worsened early this morning. It is felt immediately underneath your wound which was performed August 08. You're not exhibiting any signs or symptoms of a infective process i.e. no fever or chills. Bowels have been a bit sluggish and as you identified somewhat painful to bear down to push the stool out. Lab work done shows white count to be upper limits of normal . Markers for infection proved to be normal. Urinalysis was normal as well. The x-ray of the abdomen shows increased stool throughout the entire transverse colon which is across the upper abdomen in parts of the lower descending: Left upper abdomen. Lortab at abdomen and rectal vault are empty at this time for stool. Therefore I'm advising treatment to be magnesium citrate or Citroma 7 ounces mixed with 5-6 ounces of juice of choice to provide bowel cleanse. This usually starts to work in 1-2 hours after you take it and often the bowels were move for 5 times often ending in some degree of diarrhea. If abdominal pain is not markedly improved after bowel cleanse or is worsening over the next 8-12 hours then you are to return to the emergency department for further investigations. - My Orders Last 24 Hours: My Active Orders 10/01/17 07:00 URINALYSIS W/MICROSCOPIC [UA W/MICROSCOPIC] [URIN] Stat - Assessment/Plan Last 24 Hours: My Active Orders 10/01/17 07:00 URINALYSIS W/MICROSCOPIC [UA W/MICROSCOPIC] [URIN] Stat
[2017-10-01] MEDS ORDERED: HYDROmorphone 0.5 MG/0.5 ML SYRINGE IVPUSH ONE (06:28)
[2017-10-01] MEDS ORDERED: Ondansetron 4 MG/2 ML SDV IVPUSH ONE (06:28)
[2017-10-01] MEDS ORDERED: Dextrose 5%-0.9% NaCl 1,000 ML IV SCH (06:30)
[2017-10-01] MEDS ORDERED: Magnesium Citrate Solution 296 ML Bottle PO ONE (08:09)
--- NOTE | 2017-10-01 08:09 | CR ---
Abdomen: Supine view of the abdomen was obtained. Comparison: No prior abdominal x-ray. Abnormality identified within the right femoral head which has a central lucency and surrounding sclerosis. 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 Please correlate if patient has any hip pain to warrant further evaluation. Bowel gas pattern appears normal. No abnormal calcifications or soft tissue abnormality is seen. Impression: 1. 4.0 cm lesion within the right femoral head having a benign appearance, please correlate that patient has no clinical symptoms to the right hip to warrant further evaluation by CT exam. 2. Supine abdominal x-ray is otherwise unremarkable. Diagnostic code #3
== END 2017-10-01 08:29 | disposition home or self-care (01) ==
LOC: JD.ED 05:35
DX: K59.01 Slow transit constipation (principal); E10.9 Type 1 diabetes mellitus without complications; Z88.8 Allergy status to other drugs, medicaments and biological substances; Z79.899 Other long term (current) drug therapy
CPT/HCPCS: 36415; 74018; 80053; 81001; 83690; 85025; 86140; 96361; 96374; 96375; 99284; A9270; J1170; J2405; J7042

== ENCOUNTER 2017-10-01 19:16 | Emergency (ER) | payer BC ==
--- NOTE | 2017-10-01 19:24 | EDM.PDOC ---
ED HPI GENERAL MEDICAL PROBLEM - General Chief Complaint: Gastrointestinal Problem Stated Complaint: CT SCAN Time Seen by Provider: 10/01/17 19:20 Source of Information: Reports: Patient History Limitations: Reports: No Limitations - History of Present Illness INITIAL COMMENTS - FREE TEXT/NARRATIVE: 27-year-old female who might seen last evening with diffuse lower abdominal pain today underneath her Pfannenstiel scar done August 08. She was very tender in this area and was difficult to localize any specific area of tenderness. She was afebrile. Complete workup revealed a white count of 10.74 I believe with 81% neutrophils and no bands. She was afebrile . Urinalysis was negative l. Labs were essentially normal as well other than a minimally elevated CRP at 1.5. X-ray of the abdomen revealed increased stool throughout the transverse colon parts of the descending colon. No stones were hyperactive in all 4 quadrants of the abdomen. Pain went away completely with 0.5 mg of Dilaudid and Zofran 4 mg IV. Therefore treated her with Citroma 7 ounces by mouth with 5 ounces of diabetic or sugar-free cranberry juice as she is an insulin-dependent diabetic. After discussion with her this evening she indicates that she did have 3 loose stools after the Citroma continues to have however diffuse lower abdominal pain. She did eat supper she has not spiked any fever or chills. Therefore the source of her lower abdominal pain remains elusive. Since it seems to be underneath the scar it is questionable whether there is a underlying hematoma or seroma although is presenting rather late almost a month after the surgery was performed. I therefore asked her to come back to the ED for reevaluation of abdominal pain to make sure not missing an appendicitis. Again she has no nausea or vomiting. His pain is still listed as a 6 or 7 out of 10. She reports she can walk fairly normally. Onset: Gradual Onset Date: 09/30/17 Duration: Hour(s):, Constant, Getting Worse Location: Reports: Abdomen (diffuse pain across both sides of her lower abdomen. Gurading with mild rebound RLQ?) Quality: Reports: Ache, Sharp, Stabbing, Other (worsens with movement.) Severity: Moderate (Current pain is 6-7/10 with movment. 3-4 at rest.) Improves with: Reports: Rest Worsens with: Reports: Other (coughing or sneezing or sitting up. ), Movement Context: Denies: Activity, Exercise, Lifting, Sick Contact, Trauma Associated Symptoms: Reports: Loss of Appetite (at supper tonight. ), Malaise. Denies: No Other Symptoms, Confusion, Chest Pain, Cough, cough w sputum, Diaphoresis, Fever/Chills, Headaches, Nausea/Vomiting, Rash, Seizure, Shortness of Breath, Syncope, Weakness, Other Treatments MANAGER WELDING: Reports: Other (see below) (none. 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 Sugars wre a40`s tonight. - Past Surgical History Female Surgical History: Reports: Section (done aug 08. No complications.) Endocrine Surgical History: Reports: None Social & Family History - Family History Family Medical History: Noncontributory - Tobacco Use Smoking Status *Q: Never Smoker Second Hand Smoke Exposure: No - Caffeine Use Caffeine Use: Reports: Coffee - Recreational Drug Use Recreational Drug Use: No - Living Situation & Occupation Living situation: Reports: Occupation: Unemployed (At home with new baby.) ED ROS GENERAL - Review of Systems Review Of Systems: See Below Constitutional: Reports: Malaise, Fatigue. Denies: Fever, Chills, Decreased Appetite, Weight Loss HEENT: Reports: No Symptoms Respiratory: Reports: No Symptoms Cardiovascular: Reports: No Symptoms Endocrine: Reports: Other (blood sugars were a little high thsi am but 140`s tonight. On an insulin pump. ) GI/Abdominal: Reports: Abdominal Pain (see HPI), Constipation (bowl cleanse today with 4 BM`s . Did not improve abdominal pain. ), Decreased Appetite ( mild ). Denies: Difficulty Swallowing : Reports: No Symptoms, Other (urinalysis done this am was normal. ) Musculoskeletal: Reports: Back Pain ( chronic since . o worse than normal. ) Skin: Reports: No Symptoms Neurological: Reports: No Symptoms Psychiatric: Reports: No Symptoms Hematologic/Lymphatic: Reports: No Symptoms Immunologic: Reports: No Symptoms ED EXAM, GI/ABD - Physical Exam Exam: See Below Exam Limited By: No Limitations General Appearance: Alert, WD/WN, No Apparent Distress, Other (afebrile. ) Eyes: Bilateral: Normal Appearance (no jaundice. ) Throat/Mouth: Normal Inspection, Normal Lips, Normal Oropharynx Head: Atraumatic, Normocephalic Neck: Normal Inspection, Supple, Non-Tender, Full Range of Motion. No: Lymphadenopathy (L), Lymphadenopathy (R) Respiratory/Chest: No Respiratory Distress, Lungs Clear, Normal Breath Sounds, No Accessory Muscle Use Cardiovascular: Normal Peripheral Pulses, Regular Rate, Rhythm, No Edema, No Gallop, No Murmur, No Rub GI/Abdominal Exam: Guarding (along Pfanastiel incision. ), Rebound (RLQ), Tender (auperior to the scar which is healing well. ), Abnormal Bowel Sounds ( very active bowl sounds in all 4 quadrantrs. ) Back Exam: Normal Inspection, Full Range of Motion. No: CVA Tenderness (L), CVA Tenderness (R) Extremities: Normal Inspection, Normal Range of Motion, Non-Tender, No Pedal Edema Neurological: Alert, Oriented, CN II-XII Intact, Normal Cognition, Normal Gait Psychiatric: Normal Affect, Normal Mood, Anxious (mildly anxious. ) Skin Exam: Warm, Dry, Intact, Normal Color Course - Vital Signs Last Recorded V/S: Last Vital Signs Temp 36.6 C 10/01/17 19:22 Pulse 93 10/01/17 19:22 Resp BP 138/79 10/01/17 19:22 Pulse Ox 100 10/01/17 19:22 - Orders/Labs/Meds Orders: Active Orders 24 hr Category Date Time Status Abdomen Pelvis w Cont [CT] Stat Exams 10/01/17 19:36 Taken Labs: Laboratory Tests 10/01/17 10/01/17 Range/Units 19:45 19:45 WBC 7.88 (3.98-10.04) K/mm3 RBC 4.44 (3.98-5.22) M/mm3 Hgb 12.0 (11.2-15.7) gm/L Hct 37.4 (34.1-44.9) % MCV 84.2 (79.4-94.8) fl MCH 27.0 (25.6-32.2) pg MCHC 32.1 L (32.2-35.5) g/dl RDW Std Deviation 38.5 (36.4-46.3) fL Plt Count 358 (182-369) K/mm3 MPV 10.5 (9.4-12.3) fl Neutrophils % (Manual) 57 (40-60) % Band Neutrophils % 0 (0-10) % Lymphocytes % (Manual) 35 (20-40) % Atypical Lymphs % 0 % Monocytes % (Manual) 5 (2-10) % Eosinophils % (Manual) 2 (0.7-5.8) % Basophils % (Manual) 1 (0.1-1.2) Platelet Estimate Adequate Plt Morphology Comment Normal RBC Morph Comment Normal Sodium 146 H (136-145) mEq/L Potassium 3.9 (3.5-5.1) mEq/L Chloride 108 H (98-107) mEq/L Carbon Dioxide 28 (21-32) mEq/L Anion Gap 13.9 (5-15) BUN 9 (7-18) mg/dL Creatinine 0.8 (0.55-1.02) mg/dL Est Cr Clr Drug Dosing 98.01 mL/min Estimated GFR (MDRD) > 60 (>60) mL/min BUN/Creatinine Ratio 11.3 L (14-18) Glucose 123 H (74-106) mg/dL Calcium 9.0 (8.5-10.1) mg/dL Total Bilirubin 0.4 (0.2-1.0) mg/dL AST 15 (15-37) U/L ALT 14 (14-59) U/L Alkaline Phosphatase 78 (46-116) U/L C-Reactive Protein 6.9 H* (<1.0) mg/dL Total Protein 7.5 (6.4-8.2) g/dl Albumin 3.8 (3.4-5.0) g/dl Globulin 3.7 gm/dL Albumin/Globulin Ratio 1.0 (1-2) Meds: Medications Discontinued Medications Generic Name Dose Route Start Last Admin Trade Name Freq PRN Reason Stop Dose Admin Diatrizoate Meglum/Diatrizoate Sod 45 ml 10/01/17 21:28 10/01/17 21:44 Gastrografin 37% PO 10/01/17 21:29 45 ml ONETIME ONE Administration Doxycycline Hyclate 200 mg 10/01/17 22:14 10/01/17 22:24 Vibramycin PO 10/01/17 22:15 200 mg ONETIME ONE Administration Hydromorphone HCl 0.5 mg 10/01/17 19:36 10/01/17 20:03 Dilaudid IVPUSH 10/01/17 19:37 0.5 mg ONETIME ONE Administration Sodium Chloride 1,000 mls @ 125 mls/hr 10/01/17 19:45 10/01/17 20:00 Normal Saline IV 125 mls/hr ASDIRECTED EDDIE Administration Iopamidol 125 ml 10/01/17 21:28 10/01/17 21:44 Isovue-300 (61%) IVPUSH 10/01/17 21:29 125 ml ONETIME ONE Administration Ondansetron HCl 4 mg 10/01/17 19:35 10/01/17 20:01 Zofran IVPUSH 10/01/17 19:36 4 mg ONETIME ONE Administration - Radiology Interpretation Free Text/Narrative:: 27-year-old female attends the ED at my request. I seen her earlier hours of this morning with diffuse lower abdominal pain along her wound which was done August 08, 2017. She did not have a fever and complete workup revealed a slightly elevated white count at 10.76 with a left shift of 81% neutrophils no bands. Hemoglobin was otherwise normal. CRP was slightly elevated 1.5 urinalysis was normal. A KUB revealed increased stool throughout the transverse colon and portions of the upper descending colon but the rectal vault and lower left colon were empty. Decision made at that time due to normal labs and active bowel sounds in all 4 quadrants and no fever to have her take Citroma 7 ounces by mouth to provide bowel cleanse and see how things went. When I discussed it with her's evening she still having significant lower abdominal pain along the wound. She has not spiked a fever. It hurts to cough and sneeze or sit up. Pain is notassociated necessarily worse than it was earlier this morning but certainly not better. Pain is mostly along the superior portion of the Pfannenstiel incision and perhaps more localized to the right lower quadrant than it was previously. She does only has marked tenderness with guarding and I believe rebound right lower quadrant. Of note she sings insulin-dependent diabetic and reports her blood sugars are still in good control. Therefore it highly unlikely that she would have an occult appendicitis. I believe something may have bled under the wound or in the abdominal wall to be causing her pain. Will repeat her CBC CMP and CRP. We' ll have CT of the abdomen and pelvis performed with IV and oral contrast. We'll give her 0.5 mg of Dilaudid with Zofran 4 mg IV for pain and nausea relief at this time - Re-Assessments/Exams Free Text/Narrative Re-Assessment/Exam: 10/01/17 22:01 Labs are back. White count is 7.88 less than it was this morning at 10.76. Hemoglobin is 12.0 with hematocrit 37.4. Platelet count is normal 358,000. Differential is normal with 57% neutrophils and no bands. Sodium is 146 with a potassium of 3.9. Chloride is 108 bicarbonate is 28. And a gap is normal at 13.9. Renal function is normal with a creatinine of 0.8. Glucose is 123. Glucose was 9.0. Bilirubin is 0.4 AST is 15 ALT is 14 alkaline phosphatase stasis 78 CRP is elevated compared to this morning at 6.9. Was 1.5 earlier today. Urinalysis done previously was normal this morning. 10/01/17 22:01 CT of the abdomen and pelvis has been completed. Lung bases are unremarkable no masses no consolidation. Liver appears normal. Gallbladder is unremarkable with no stones or ductal dilatation. Pancreas is normal spleen is normal adrenals unremarkable kidneys and ureters normal. No hydronephrosis. Stomach and bowel appear unremarkable with no obstruction or mucosal thickening appendix no findings to suggest acute appendicitis bladder unremarkable with no masses. There are changes consistent with patient's history of recent section. Unremarkable no free air no significant fluid collection in the intraperitoneal space. Lymph nodes are unremarkable. Abdominal aorta is normal. Soft tissues appear normal as well. Therefore other than an elevated CRP there are no clear findings of an infective process in the abdomen or pelvis. However no elevation of the CRP and a short period time with persistent pain along her C -section wound is somewhat concerning for developing infection. I'm going to place her on doxycycline 200 mg in the ED and then 100 mg twice daily for another 9 days to cover for any potential infection. She will return if she develops any fever chills nausea or vomiting. Departure - Departure Time of Disposition: 22:10 Disposition: Home, Self-Care 01 Condition: Fair Clinical Impression: Abdominal pain Qualifiers: Abdominal location: lower abdomen, unspecified Qualified Code(s): R10.30 - Lower abdominal pain, unspecified - Discharge Information Prescriptions: Doxycycline [Vibramycin] 100 mg PO BID #18 tab Instructions: Abdominal Pain, Adult, [id number] Referrals: Amparo Hernandez NP [Primary Care Provider] - Forms: ED Department Discharge Additional Instructions: Evaluation the emergency room today in regards to persistent diffuse lower abdominal pain starting yesterday. Previous investigations done earlier in the day did not reveal any signs of urinary tract infection but did show a mildly elevated white blood cell count. Abdominal x-ray suggested increased stool throughout the transverse colon and left descending colon which is remedied by Citroma 7 ounces by mouth with 4 good bowel movement subsequently. Her pain persists in the lower abdomen particularly localized to the wound which is almost a month old. Pain seemed to be worse in the right lower quadrant and therefore concern for possible appendicitis existed. Repeat lab work done today reveals the white count actually went down from this morning it is currently 7.8 and it was 10.6 this morning. The differential was also normal. However the CRP went from 1.5-6.9 suggesting a possible low-grade infection. CT of the abdomen was performed with oral and IV contrast and does not reveal any signs of appendicitis or other infective process in the pelvis per se. Due to her persistent pain in the wound itself I have some concerns ricketts about a developing infection deep within the wound. I am therefore going to suggest using antibiotic doxycycline 100 mg twice daily for the next 9 days to clear up infection. The first [address] sosa were given in the ED tonight. You need to return to the ED or follow up with Dr. Herndon if you develop fever chills nausea or vomiting. I would expect gradual improvement over the next 72 hours with decreased pain and return to her normal state of health. - My Orders Last 24 Hours: My Active Orders 10/01/17 19:36 Abdomen Pelvis w Cont [CT] Stat - Assessment/Plan Last 24 Hours: My Active Orders 10/01/17 19:36 Abdomen Pelvis w Cont [CT] Stat
[2017-10-01 19:26] VITALS: BP 138/79
[2017-10-01] MEDS ORDERED: Ondansetron 4 MG/2 ML SDV IVPUSH ONE (19:35)
[2017-10-01] MEDS ORDERED: HYDROmorphone 0.5 MG/0.5 ML SYRINGE IVPUSH ONE (19:36)
[2017-10-01] MEDS ORDERED: Sodium Chloride 0.9% 1,000 ML IV SCH (19:45)
[2017-10-01] MEDS ORDERED: Diatrizoate Meglumine/Diatrizoate Sodium 37% 120 ML Bottle PO ONE (21:28)
[2017-10-01] MEDS ORDERED: Iopamidol 612 MG/ML 150 ML Bottle IVPUSH ONE (21:28)
[2017-10-01] MEDS ORDERED: Doxycycline 100 MG Cap PO ONE (22:14)
--- NOTE | 2017-10-02 06:46 | CT ---
CT abdomen and pelvis Technique: Multiple axial sections were obtained from above the dome of the diaphragm inferiorly through the pubic symphysis. Intravenous contrast and oral contrast has been given. Delayed images also were obtained through the pelvis. Comparison: Prior abdominal x-ray of 10/01/17. Findings: Visualized lung bases are clear. Liver shows no focal parenchymal abnormality. Spleen appears within normal limits. Adrenal glands contain no nodules. Kidneys show symmetric contrast enhancement with no hydronephrosis or mass. Pancreas is within normal limits. Gallbladder contains no calcified gallstones. Aorta shows no aneurysmal dilatation. Small amount of fluid is seen within the pelvis which is felt to be physiologic. Appendix not well seen but shows no definite dilatation. No inflammatory change is seen. Delayed images show contrast within nondilated ureters and bladder. Bone window settings were reviewed which appear within normal limits for the patient's age. Impression: 1. Nothing acute is appreciated on CT study of the abdomen and pelvis. Diagnostic code #1 Agree with preliminary report issued by [facility] ([facility] preliminary report dictated on 10/01/17, 10:56 PM Central Time)
== END 2017-10-01 22:23 | disposition home or self-care (01) ==
LOC: JD.ED 19:16
DX: R10.30 Lower abdominal pain, unspecified (principal); E10.9 Type 1 diabetes mellitus without complications; Z88.1 Allergy status to other antibiotic agents; Z79.899 Other long term (current) drug therapy
CPT/HCPCS: 36415; 74177; 80053; 85025; 86140; 96361; 96374; 96375; 99284; A9270; J1170; J2405; J7040; Q9963; Q9967

== ENCOUNTER 2018-10-15 06:15 | Inpatient (IN) | payer BC ==
[2018-10-15] MEDS ORDERED: Metoprolol Tartrate 5 MG/5 ML SDV IVPUSH ONE ×2 (06:27→07:11)
--- NOTE | 2018-10-15 06:28 | EDM.PDOC ---
<Narinder Randhawa Tenisha - Last Filed: 10/15/18 06:41> ED HPI GENERAL MEDICAL PROBLEM - General Chief Complaint: Chest Pain Stated Complaint: HEART BEATING FAST Time Seen by Provider: 10/15/18 06:20 Source of Information: Reports: Patient History Limitations: Reports: No Limitations - History of Present Illness INITIAL COMMENTS - FREE TEXT/NARRATIVE: 28-year-old female who spent the night in the emergency room due to development of mild diabetic ketoacidosis precipitated likely by malfunction of her new insulin pump which was started yesterday morning. It appeared that she was not getting adequate doses of insulin via the pump and developed diabetic ketoacidosis. This precipitated acute onset of nausea and vomiting which brought her to the ED. She had diffuse upper abdominal pain and had CT scan to make sure that nothing more serious was going on. The CT proved to be normal. She denies a history of hyperthyroidism and is on methimazole 10 mg every other day. She was treated in the ED overnight with 5 L of normal saline and insulin drip as high as 5 units an hour for a period of time to bring her blood sugar down and improve her metabolic acidosis. Her anion gap had gone up as high as 22.5. Her blood sugar at the time of discharge was down to 225. Anion gap was reduced to 17. She reports after she went home she took her methimazole tablet 10 mg tablet and within 10 minutes of this start developed rapid heartbeat pounding in her chest which causes pain in her shoulders neck and back. This is occurred in the past when diagnosis was made of hyperthyroidism. Therefore the mechanism of the development of recurrent mild thyroid storm symptoms are unclear although it may be precipitated by acute illness with the recent metabolic acidosis etc. ECG shows sinus tachycardia at 136/m with occasional PACs. Of note the patient does not take any beta jacob therapy. Her pump has been switched to manual mode so that she can give herself boluses of insulin throughout the day as needed based on blood sugar recordings. I believe that the automatic mode is to be set up after a week of use of the manual mode as the computer cleans how the blood sugars typically run and how much insulin requirements are required. At this time she is very uncomfortable with pressure in her shoulders neck and feeling dyspneic. Her pressure is 91/49. Onset: Today Onset Date: 10/15/18 Onset Time: 05:25 Duration: Minutes: Location: Reports: Chest (Dictations with sinus tachycardia in the 136-145 range.) Quality: Reports: Pressure (Pressure in her shoulders neck) Severity: Moderate Improves with: Reports: None Worsens with: Reports: None Context: Denies: Activity, Exercise, Lifting, Sick Contact, Trauma, Other Associated Symptoms: Reports: Chest Pain, Loss of Appetite, Nausea/Vomiting, Shortness of Breath, Weakness. Denies: Confusion, Cough, cough w sputum, Diaphoresis, Fever/Chills, Headaches, Malaise, Rash, Seizure (Has been vomiting all night long.), Syncope - Related Data Allergies Allergy/AdvReac Type Severity Reaction Status Date / Time cefaclor [From Ceclor] Allergy Cannot Verified 10/15/18 05:07 Remember Home Meds: Home Meds Ibuprofen [IJD: Ibuprofen] 600 mg PO Q6H PRN tablet 09/07/17 [Rx] Insulin Aspart [NovoLOG] 1 unit SUBCUT ASDIRECTED 01/31/18 [History] Methimazole [Tapazole] 10 mg PO DAILY #30 tablet 01/31/18 [Rx] Ondansetron [Zofran] 4 mg BUCCAL Q6H PRN #6 tab 10/14/18 [Rx] Past Medical History Cardiovascular History: Reports: Other (See Below) (Sinus tachycardia in the past week related to hyperthyroidism) 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 Graves disease - Past Surgical History Female Surgical History: Reports: Section Endocrine Surgical History: Reports: None Social & Family History - Family History Family Medical History: Noncontributory - Caffeine Use Caffeine Use: Reports: Soda - Living Situation & Occupation Living situation: Reports: Occupation: Unemployed (At home with new baby.) ED ROS GENERAL - Review of Systems Review Of Systems: See Below Constitutional: Denies: Fever, Chills, Malaise, Weakness, Fatigue, Decreased Appetite, Weight Loss HEENT: Reports: No Symptoms Respiratory: Reports: Shortness of Breath. Denies: Wheezing, Pleuritic Chest Pain, Cough, Sputum Cardiovascular: Reports: Chest Pain, Blood Pressure Problem, Dyspnea on Exertion , Lightheadedness. Denies: Claudication, Edema, Orthopnea Endocrine: Reports: No Symptoms GI/Abdominal: Reports: Nausea (Mild) : Reports: No Symptoms Musculoskeletal: Reports: No Symptoms Skin: Reports: No Symptoms Neurological: Reports: No Symptoms ED EXAM, GENERAL - Physical Exam Exam: See Below Exam Limited By: No Limitations General Appearance: Alert, Anxious (Anxious), Moderate Distress Eye Exam: Bilateral Eye: Normal Inspection Throat/Mouth: Normal Oropharynx, Other Head: Atraumatic, Normocephalic Neck: Normal Inspection, Supple, Non-Tender, Full Range of Motion. No: Lymphadenopathy (L), Lymphadenopathy (R), Thyromegaly Respiratory/Chest: Lungs Clear, Normal Breath Sounds, No Accessory Muscle Use, Chest Non-Tender, Respiratory Distress Cardiovascular: Normal Peripheral Pulses, No Edema, No Gallop, No Murmur ( Hyperventilation syndrome), No Rub, Tachycardia Peripheral Pulses: 1+: Radial (L), Radial (R), Dorsalis Pedis (L), Dorsalis Pedis (R) GI/Abdominal: Normal Bowel Sounds, Soft, Non-Tender, No Organomegaly, Tender ( Tender in the epigastrium from recent nausea and vomiting.) Extremities: Normal Inspection, Normal Range of Motion, Non-Tender, Normal Capillary Refill Neurological: Alert, Oriented, CN II-XII Intact, Normal Cognition Psychiatric: Anxious Skin Exam: Cool, Diaphoretic EKG INTERPRETATION EKG Date: 10/15/18 Time: 06:18 Rhythm: Other (Sinus tachycardia with frequent premature atrial contractions) Rate (Beats/Min): 136 P-Wave: Present QRS: Other (Early R-wave transition consider septal hypertrophy. May also be normal for the patient's age.) ST-T: Other (Diffuse repolarization abnormality likely due to rate.) QT: Normal EKG Interpretation Comments: Abnormal ECG Course - Vital Signs Last Recorded V/S: Last Vital Signs Temp 36.9 C 10/15/18 09:17 Pulse 118 H 10/15/18 09:17 Resp 25 H 10/15/18 09:17 BP 100/50 L 10/15/18 09:17 Pulse Ox 96 10/15/18 09:17 - Orders/Labs/Meds Orders: Active Orders 24 hr Category Date Time Status EKG Documentation Completion [RC] STAT Care 10/15/18 06:24 Active FREE T3 [REF] Stat Lab 10/15/18 07:09 Received Insulin Regular, Human [HumuLIN R] 100 unit Med 10/15/18 08:45 Active Sodium Chloride 0.9% [Normal Saline] 99 ml IV TITRATE Lactated Ringers [Ringers, Lactated] 500 ml Med 10/15/18 08:30 Active IV .BOLUS Magnesium Sulfate/Water [Magnesium Sulfate 2 GM in Med 10/15/18 08:33 Active Water 50 ML] 2 gm Premix Bag 1 bag IV ONETIME Sodium Chloride 0.9% [Normal Saline] 1,000 ml Med 10/15/18 06:30 Active IV ASDIRECTED Medication Orders Sodium Chloride (Normal Saline) 1,000 mls @ 999 mls/hr IV ASDIRECTED EDDIE Last Admin: 10/15/18 06:47 Dose: 999 mls/hr Insulin Human Regular 100 unit (/ Sodium Chloride) 100 mls @ 7.52 mls/hr IV TITRATE EDDIE; Protocol Last Admin: 10/15/18 08:55 Dose: 0.1 units/kg/hr, 7.52 mls/hr Lactated Ringer's (Ringers, Lactated) 500 mls @ 500 mls/hr IV .BOLUS ONE Stop: 10/15/18 09:29 Last Admin: 10/15/18 08:45 Dose: 500 mls/hr Magnesium Sulfate 2 gm/ Premix 50 mls @ 50 mls/hr IV ONETIME ONE Stop: 10/15/18 09:32 Last Admin: 10/15/18 08:51 Dose: 50 mls/hr Labs: Laboratory Tests 10/15/18 10/15/18 10/15/18 Range/Units 07:09 07:09 07:09 WBC 15.30 H (3.98-10.04) K/mm3 RBC 4.15 (3.98-5.22) M/mm3 Hgb 11.5 (11.2-15.7) gm/L Hct 35.2 (34.1-44.9) % MCV 84.8 (79.4-94.8) fl MCH 27.7 (25.6-32.2) pg MCHC 32.7 (32.2-35.5) g/dl RDW Std Deviation 38.8 (36.4-46.3) fL Plt Count 271 (182-369) K/mm3 MPV 10.7 (9.4-12.3) fl Neutrophils % (Manual) 87 H (40-60) % Band Neutrophils % 0 (0-10) % Lymphocytes % (Manual) 7 L (20-40) % Atypical Lymphs % 0 % Monocytes % (Manual) 6 (2-10) % Eosinophils % (Manual) 0 L (0.7-5.8) % Basophils % (Manual) 0 L (0.1-1.2) Platelet Estimate Adequate Anisocytosis 3+ marked Swathi Cells 2+ moderate RBC Morph Comment Abnormal PT (9.5-12.1) SECONDS INR D-Dimer, Quantitative 0.53 H (0.19-0.50) mg/L Sodium 136 (136-145) mEq/L Potassium 5.0 (3.5-5.1) mEq/L Chloride 105 (98-107) mEq/L Carbon Dioxide 14 L (21-32) mEq/L Anion Gap 22.0 H (5-15) BUN 20 H (7-18) mg/dL Creatinine 1.1 H (0.55-1.02) mg/dL Est Cr Clr Drug Dosing 73.38 mL/min Estimated GFR (MDRD) 59 (>60) mL/min BUN/Creatinine Ratio 18.2 H (14-18) Glucose 408 H (74-106) mg/dL Calcium 8.7 (8.5-10.1) mg/dL Magnesium 1.5 L (1.8-2.4) mg/dl Total Bilirubin 0.7 (0.2-1.0) mg/dL AST 21 (15-37) U/L ALT 34 (14-59) U/L Alkaline Phosphatase 74 (46-116) U/L CK-MB (CK-2) 1.8 (0-3.6) ng/ml Troponin I 0.031 (0.00-0.056) ng/mL NT-Pro-B Natriuret Pep (0-125) pg/mL Total Protein 6.5 (6.4-8.2) g/dl Albumin 3.5 (3.4-5.0) g/dl Globulin 3.0 gm/dL Albumin/Globulin Ratio 1.2 (1-2) Free T4 3.34 H (0.76-1.46) ng/dL TSH 3rd Generation 0.013 L (0.358-3.74) uIU/mL Ketones (0.0-0.3) mM 10/15/18 10/15/18 10/15/18 Range/Units 07:09 07:09 07:09 WBC (3.98-10.04) K/mm3 RBC (3.98-5.22) M/mm3 Hgb (11.2-15.7) gm/L Hct (34.1-44.9) % MCV (79.4-94.8) fl MCH (25.6-32.2) pg MCHC (32.2-35.5) g/dl RDW Std Deviation (36.4-46.3) fL Plt Count (182-369) K/mm3 MPV (9.4-12.3) fl Neutrophils % (Manual) (40-60) % Band Neutrophils % (0-10) % Lymphocytes % (Manual) (20-40) % Atypical Lymphs % % Monocytes % (Manual) (2-10) % Eosinophils % (Manual) (0.7-5.8) % Basophils % (Manual) (0.1-1.2) Platelet Estimate Anisocytosis Swathi Cells RBC Morph Comment PT 11.9 (9.5-12.1) SECONDS INR 1.09 D-Dimer, Quantitative (0.19-0.50) mg/L Sodium (136-145) mEq/L Potassium (3.5-5.1) mEq/L Chloride (98-107) mEq/L Carbon Dioxide (21-32) mEq/L Anion Gap (5-15) BUN (7-18) mg/dL Creatinine (0.55-1.02) mg/dL Est Cr Clr Drug Dosing mL/min Estimated GFR (MDRD) (>60) mL/min BUN/Creatinine Ratio (14-18) Glucose (74-106) mg/dL Calcium (8.5-10.1) mg/dL Magnesium (1.8-2.4) mg/dl Total Bilirubin (0.2-1.0) mg/dL AST (15-37) U/L ALT (14-59) U/L Alkaline Phosphatase (46-116) U/L CK-MB (CK-2) (0-3.6) ng/ml Troponin I (0.00-0.056) ng/mL NT-Pro-B Natriuret Pep 1776 H (0-125) pg/mL Total Protein (6.4-8.2) g/dl Albumin (3.4-5.0) g/dl Globulin gm/dL Albumin/Globulin Ratio (1-2) Free T4 (0.76-1.46) ng/dL TSH 3rd Generation (0.358-3.74) uIU/mL Ketones 3.42 (0.0-0.3) mM Meds: Medications Generic Name Dose Route Start Last Admin Trade Name Letha PRN Reason Stop Dose Admin Sodium Chloride 1,000 mls @ 999 mls/hr 10/15/18 06:30 10/15/18 06:47 Normal Saline IV 999 mls/hr ASDIRECTED EDDIE Administration Insulin Human Regular 100 unit 100 mls @ 7.52 mls/hr 10/15/18 08:45 10/15/18 08:55 / Sodium Chloride IV 0.1 units/kg/hr TITRATE EDDIE 7.52 mls/hr Administration Protocol 0.1 UNITS/KG/HR Lactated Ringer's 500 mls @ 500 mls/hr 10/15/18 08:30 10/15/18 08:45 Ringers, Lactated IV 10/15/18 09:29 500 mls/hr .BOLUS ONE Administration Magnesium Sulfate 2 gm/ Premix 50 mls @ 50 mls/hr 10/15/18 08:33 10/15/18 08: 51 IV 10/15/18 09:32 50 mls/hr ONETIME ONE Administration Discontinued Medications Generic Name Dose Route Start Last Admin Trade Name Letha PRN Reason Stop Dose Admin Hydrocortisone Sodium Succinate 100 mg 10/15/18 06:38 10/15/18 06:59 Solu-Cortef IVPUSH 10/15/18 06:39 100 mg ONETIME ONE Administration Iodine 0 ml 10/15/18 07:45 10/15/18 08:53 Iodine 2% Mild Tincture .XX 10/15/18 07:46 30 ml ONETIME ONE Administration Lorazepam 1 mg 10/15/18 06:35 10/15/18 06:47 Ativan IVPUSH 10/15/18 06:36 1 mg ONETIME ONE Administration Methimazole 10 mg 10/15/18 06:40 10/15/18 07:25 Methimazole PO 10/15/18 06:41 10 mg ONETIME ONE Administration Metoprolol Tartrate 5 mg 10/15/18 06:27 10/15/18 06:49 Lopressor IVPUSH 10/15/18 06:28 5 mg ONETIME ONE Administration Metoprolol Tartrate 5 mg 10/15/18 07:11 10/15/18 07:21 Lopressor IVPUSH 10/15/18 07:12 5 mg ONETIME ONE Administration Ondansetron HCl 4 mg 10/15/18 08:00 10/15/18 08:07 Zofran IVPUSH 10/15/18 08:01 4 mg ONETIME ONE Administration - Radiology Interpretation Free Text/Narrative:: 28-year-old female presents to the ED shortly after being discharged from the hospital. Patient was seen here last evening by Dr. Mcmullen when she presented to the ED about 1700 hrs. with nausea and vomiting. She had associated diffuse upper abdominal pain at that time. The history suggests that she got a new insulin pump yesterday morning and that it likely was malfunctioning or not being used properly. She had it in the automatic mode and I suspect it should be in the manual mode the first 7 days of use until the computer can assess the need for insulin etc. At any rate I accepted care at 1900 hrs. which was change of shift. CT scan of the abdomen have been ordered by Dr. Priest to rule out any other pathology since she had a elevated white blood cell count and a left shift. However lab work also revealed a metabolic acidosis with a anion gap of 20 and an elevated blood sugar in the [address] of the abdomen improved to be completely normal. They became apparent that even with her bolusing herself with 5 units of insulin via her pump her blood sugars were not responding in the disc appears that the pump is malfunctioning. The pump was then eventually shut off and the patient was continued on IV normal saline throughout the night and her nausea and vomiting brought under control with IV Reglan and Zofran. She required insulin infusion initially starting at 33 units an hour and then increasing it to 5 units an hour for a period of time and then reducing it back to 3 units an hour and it was discontinued after the blood sugar got down to 257. The time of discharge was down to 225. Repeat assessment of her anion gap revealed it to be 17.7. Shortly after going home she took her Badger result tablet which she takes 10 mg every other day for her Graves' disease. Within a half an hour of this she developed tachycardia with heart rate in the 130s and 140s. She is well aware of the palpitations and so so she with development of chest pain and shoulder pain and neck pain. ECG does not show any signs of acute ischemia but shows a sinus tachycardia. Peers that she is essentially developing a mild thyroid storm. She will have labs repeated as her serum magnesium was slightly low at 1.6. She may need magnesium supplementation. We need to establish if she is still suffering significant metabolic acidosis or that it has reversed since discharge. Plan is to give her Lopressor 5 mg IV in an effort to reduce her heart rate by beta blockade although propanolol IV would be the preferred agent I do not believe it's available in the hospital. IV will be done normal saline at open. I will give her another dose of methimazole 10 mg by mouth as often 20 mg every 4-6 hours orally will help reduce thyroid hormone output from the thyroid gland. I of course of measured her TSH and free T4 but the free T3 will be a send out. I will also give her Solu Cortef 100 mg IV and Ativan 1 mg IV. - Re-Assessments/Exams Free Text/Narrative Re-Assessment/Exam: 10/15/18 06:57 patient is starting to show some response to the initial dose of Lopressor heart rate is now 123 and blood pressures coming up to 114/68. She will likely need to stay in the intensive care unit for further dosing of beta blockers and in an hour or so could use 10 drops of Lugol's solution to help reduce thyroid output or conversion from T4-T3. Departure - Departure Disposition: Admitted As Inpatient 65 Clinical Impression: Hyperglycemia due to type 1 diabetes mellitus, Hyperthyroidism, Hypomagnesemia , Nausea and vomiting, High anion gap metabolic acidosis Referrals: Amparo Parkinson INFANT NANNY [Primary Care Provider] - - My Orders Last 24 Hours: My Active Orders 10/15/18 08:30 Lactated Ringers [Ringers, Lactated] 500 ml IV .BOLUS 10/15/18 08:33 Magnesium Sulfate/Water [Magnesium Sulfate 2 GM in Water 50 ML] 2 gm Premix Bag 1 bag IV ONETIME 10/15/18 08:45 Insulin Regular, Human [HumuLIN R] 100 unit Sodium Chloride 0.9% [Normal Saline] 99 ml IV TITRATE - Assessment/Plan Last 24 Hours: My Active Orders 10/15/18 08:30 Lactated Ringers [Ringers, Lactated] 500 ml IV .BOLUS 10/15/18 08:33 Magnesium Sulfate/Water [Magnesium Sulfate 2 GM in Water 50 ML] 2 gm Premix Bag 1 bag IV ONETIME 10/15/18 08:45 Insulin Regular, Human [HumuLIN R] 100 unit Sodium Chloride 0.9% [Normal Saline] 99 ml IV TITRATE <Enrrique Pendleton - Last Filed: 10/15/18 09:23> Course - Re-Assessments/Exams Free Text/Narrative Re-Assessment/Exam: 10/15/18 08:[address] Randhawa. Portable chest radiograph appears to be grossly normal. The cardiac silhouette is within normal limits. No pulmonary vascular congestion. No pleural effusions seen on this AP view. No focal infiltrate. No pneumothorax. Formal read per the Radiologist pending. The patient's CBC is remarkable for a WBC count elevated at 15.30, but with 0% bandemia. The remainder of her CBC is unremarkable. The patient's CMP is remarkable for a bicarbonate level depressed at 14, with an anion gap of 22. Her blood glucose is elevated at 408. The remainder of her CMP is unremarkable. The patient's magnesium level is low at 1.5. The patient's troponin and CK-MB are within normal limits. The patient's BNP is modestly elevated at 1776. The patient's D-dimer is slightly elevated at 0.53. Her coags are within normal limits. The patient's TSH is low at 0.013, and her free T4 is elevated at 3.34. The free T3 is a send out test. The patient's serum ketone level has not yet returned. Clinically, the patient has hyperglycemia and an anion gap metabolic acidosis, and I agree with Dr. Randhawa's assessment that the patient is suffering from hyperthyroidism. Straight be speaking, a thyroid storm involves life- threatening symptoms of hyperpyrexia, cardiovascular dysfunction, and altered mentation in the setting of hyperthyroidism. In this patient, the patient presented with tachycardia, although she has not suffered any dysrhythmias, she is not hyperpyrexic, nor does she have an altered mental status. Her thyroid tests are consistent with hyperthyroidism. Her hyperglycemia and leukocytosis are secondary to the hyperthyroidism. As above, the patient has received 2 doses of methimazole 10 mg, and will be given oral iodine. The patient vomited earlier, therefore was given IV Zofran. She will be given an oral iodine solution as soon as her stomach calms down. I have ordered LR at 500 mL/hr, along with an insulin drip and a 2 g Mg-rider. 10/15/18 09:12 The patient serum ketones have returned muscle elevated at 3.42, consistent with ketosis, not with ketoacidosis. Nevertheless, I am recommending admission to the hospital. This was discussed with the patient, who is agreeable. 10/15/18 09:[address] Lee at 09:18. He agreed to admit the patient to the ICU. Departure - Departure Time of Disposition: :22 Condition: Fair - My Orders Last 24 Hours: My Active Orders 10/15/18 08:30 Lactated Ringers [Ringers, Lactated] 500 ml IV .BOLUS 10/15/18 08:33 Magnesium Sulfate/Water [Magnesium Sulfate 2 GM in Water 50 ML] 2 gm Premix Bag 1 bag IV ONETIME 10/15/18 08:45 Insulin Regular, Human [HumuLIN R] 100 unit Sodium Chloride 0.9% [Normal Saline] 99 ml IV TITRATE - Assessment/Plan Last 24 Hours: My Active Orders 10/15/18 08:30 Lactated Ringers [Ringers, Lactated] 500 ml IV .BOLUS 10/15/18 08:33 Magnesium Sulfate/Water [Magnesium Sulfate 2 GM in Water 50 ML] 2 gm Premix Bag 1 bag IV ONETIME 10/15/18 08:45 Insulin Regular, Human [HumuLIN R] 100 unit Sodium Chloride 0.9% [Normal Saline] 99 ml IV TITRATE
[2018-10-15] MEDS ORDERED: Sodium Chloride 0.9% 1,000 ML IV SCH (06:30)
[2018-10-15] MEDS ORDERED: LORazepam 2 MG/ML SDV IVPUSH ONE (06:35)
[2018-10-15] MEDS ORDERED: Hydrocortisone Sodium Succinate 100 MG/2 ML SDV IVPUSH ONE (06:38)
[2018-10-15] MEDS ORDERED: Methimazole 5 MG Tab PO ONE (06:40)
--- NOTE | 2018-10-15 07:27 | CR ---
Chest: Frontal view of the chest was obtained. Comparison: No prior chest x-ray is available. Heart size and mediastinum are normal. Lungs are clear. Bony structures are grossly intact. Impression: 1. Nothing acute is seen on frontal chest x-ray. Diagnostic code #1
[2018-10-15] MEDS ORDERED: Iodine/Sodium Iodide 2% Tincture 30 ML Bottle ONE (07:45)
[2018-10-15] MEDS ORDERED: Ondansetron 4 MG/2 ML SDV IVPUSH ONE (08:00)
[2018-10-15] MEDS ORDERED: Lactated Ringers 500 ML IV ONE (08:30)
[2018-10-15] MEDS ORDERED: Magnesium Sulfate/Water 2 GM in Premix Bag 1 BAG IV ONE (08:33)
[2018-10-15] MEDS ORDERED: Lactated Ringers 1,000 ML IV SCH (12:45)
[2018-10-15] MEDS ORDERED: Metoprolol Tartrate 5 MG in Sodium Chloride 0.9% 50 ML IV PRN (12:49)
[2018-10-15] MEDS ORDERED: Metoprolol Tartrate 5 MG/5 ML SDV IV PRN (12:59)
[2018-10-15] MEDS ORDERED: Dextrose 5%-0.9% NaCl with KCl 1,000 ML IV SCH (14:00)
[2018-10-15] MEDS ORDERED: Metoprolol Tartrate 5 MG/5 ML SDV IVPUSH PRN (15:32)
--- NOTE | 2018-10-15 18:57 | PCM.HP ---
H&P History of Present Illness - General Date of Service: 10/15/18 Admit Problem/Dx: Admission Diagnosis/Problem Admission Diagnosis/Problem Hyperthyroidism Source of Information: Patient - History of Present Illness Initial Comments - Free Text/Narative: This 28-year-old female with type 1 diabetes and hypothyroidism who presented to the emergency room this morning with racing heart and chest pain. Patient initially presented to the emergency room last night where she had abdominal pain, vomiting, was found to be in DKA. In the emergency room they rehydrated her, start her on insulin drip, and stabilized her. At 5:00 this morning they discharged her home and when she got home she went upstairs and her heart started racing. She laid down and developed chest pain and returned to the emergency room. Patient was found to be tachycardic and the emergency room team felt this could be due to her hyperthyroidism. She was given another dose of methimazole, but she vomited this one up also. Patient had a persistent anion gap of 20 with metabolic acidosis. Patient is a type I diabetic and has had insulin pumps for several years. She picked up a new pump just yesterday and there is question if it was working properly. There was question about the setting she actually had it on. In the emergency room they did give her 5 mg of IV Lopressor to decrease her heart rate, at least 2 L of saline, and was placed in insulin drip. Patient will be admitted for further management of her hyperglycemia with metabolic acidosis and anion gap. Patient states that she takes methimazole 10 mg every other day. She believes she vomited it up. In the emergency room her TSH was 0.013 and her free T4 was 3.34. She no longer has nausea or vomiting. Patient was given oral iodine in the emergency room for her elevated thyroid. I spoke with her adaptive physical educator and the patient is generally on 15.1 units basal insulin per day. She does bolus based on her sliding scale. Her new insulin pump has both a meter that is real time and an automatic insulin delivery device. She would like us to try her on her insulin pump prior to discharge to confirm that it is properly working. Generalized Pain Score (Numeric/FACES): 5 - Related Data Allergies/Adverse Reactions: Allergies Allergy/AdvReac Type Severity Reaction Status Date / Time cefaclor [From Ceclor] Allergy Cannot Verified 10/15/18 05:07 Remember Home Medications: Home Meds Ibuprofen [IJD: Ibuprofen] 600 mg PO Q6H PRN tablet 09/07/17 [Rx] Insulin Pump/Infus. Set/Meter [Accu-Chek Combo System] 55 units MC DAILY [History] Methimazole [Tapazole] 10 mg PO Q48H 10/15/18 [History] Norgestrel-Ethinyl Estradiol [Elinest-28 Tablet] 1 tab PO DAILY 10/15/18 [ History] Past Medical History Cardiovascular History: Reports: Other (See Below) Other Cardiovascular History: HX heart palpatations. STOREPERSON History: Reports: , Other (See Below) Other OB/BYN History: PIH and Pre-ecclampsia Endocrine/Metabolic History: Reports: Diabetes, Type I, Hyperthyroidism Other Endocrine/Metabolic History: Has own insulin pump and glucometer(placed ). Graves disease (08/2018) - Past Surgical History Female Surgical History: Reports: Section Other Female Surgeries/Procedures: 08/2017 Social & Family History - Family History Family Medical History: Noncontributory - Tobacco Use Smoking Status *Q: Never Smoker Second Hand Smoke Exposure: No - Caffeine Use Caffeine Use: Reports: None - Recreational Drug Use Recreational Drug Use: No - Living Situation & Occupation Living situation: Reports: Occupation: Unemployed (At home with new baby.) H&P Review of Systems - Review of Systems: Review Of Systems: ROS reveals no pertinent complaints other than HPI. Exam - Exam Exam: See Below - Vital Signs Vital Signs: Last Vital Signs Temp 98.1 F 10/15/18 16:00 Pulse 133 H 10/15/18 16:24 Resp 20 10/15/18 16:00 BP 105/61 10/15/18 16:24 Pulse Ox 100 10/15/18 16:00 Weight: 174 lb 9.6 oz - Exam General: Alert, Oriented HEENT: Conjunctiva Clear, Mucosa Moist & Short Pump, Posterior Pharynx Clear Neck: Supple, Trachea Midline Lungs: Clear to Auscultation, Normal Respiratory Effort Cardiovascular: Regular Rhythm, Tachycardia GI/Abdominal Exam: Normal Bowel Sounds, Soft, Non-Tender, No Distention, No Abnormal Bruit Extremities: Normal Inspection, Normal Range of Motion, No Pedal Edema, Normal Capillary Refill Skin: Warm, Dry, Intact Neuro Extensive - Mental Status: Alert, Oriented x3, Normal Mood/Affect, Normal Cognition Neuro Extensive - Motor, Sensory, Reflexes: CN II-XII Intact, Normal Gait Psychiatric: Alert, Normal Affect, Normal Mood - Patient Data Lab Results Last 24 hrs: Laboratory Results - last 24 hr 10/15/18 10/15/18 10/15/18 Range/Units 07:09 07:09 07:09 WBC 15.30 H (3.98-10.04) K/mm3 RBC 4.15 (3.98-5.22) M/mm3 Hgb 11.5 (11.2-15.7) gm/L Hct 35.2 (34.1-44.9) % MCV 84.8 (79.4-94.8) fl MCH 27.7 (25.6-32.2) pg MCHC 32.7 (32.2-35.5) g/dl RDW Std Deviation 38.8 (36.4-46.3) fL Plt Count 271 (182-369) K/mm3 MPV 10.7 (9.4-12.3) fl Neutrophils % (Manual) 87 H (40-60) % Band Neutrophils % 0 (0-10) % Lymphocytes % (Manual) 7 L (20-40) % Atypical Lymphs % 0 % Monocytes % (Manual) 6 (2-10) % Eosinophils % (Manual) 0 L (0.7-5.8) % Basophils % (Manual) 0 L (0.1-1.2) Platelet Estimate Adequate Anisocytosis 3+ marked [place] Cells 2+ moderate RBC Morph Comment Abnormal PT (9.5-12.1) SECONDS INR D-Dimer, Quantitative 0.53 H (0.19-0.50) mg/L Sodium 136 (136-145) mEq/L Potassium 5.0 (3.5-5.1) mEq/L Chloride 105 (98-107) mEq/L Carbon Dioxide 14 L (21-32) mEq/L Anion Gap 22.0 H (5-15) BUN 20 H (7-18) mg/dL Creatinine 1.1 H (0.55-1.02) mg/dL Est Cr Clr Drug Dosing 73.38 mL/min Estimated GFR (MDRD) 59 (>60) mL/min BUN/Creatinine Ratio 18.2 H (14-18) Glucose 408 H (74-106) mg/dL POC Glucose (70-105) mg/dL Calcium 8.7 (8.5-10.1) mg/dL Magnesium 1.5 L (1.8-2.4) mg/dl Total Bilirubin 0.7 (0.2-1.0) mg/dL AST 21 (15-37) U/L ALT 34 (14-59) U/L Alkaline Phosphatase 74 (46-116) U/L CK-MB (CK-2) 1.8 (0-3.6) ng/ml Troponin I 0.031 (0.00-0.056) ng/mL NT-Pro-B Natriuret Pep (0-125) pg/mL Total Protein 6.5 (6.4-8.2) g/dl Albumin 3.5 (3.4-5.0) g/dl Globulin 3.0 gm/dL Albumin/Globulin Ratio 1.2 (1-2) Free T4 3.34 H (0.76-1.46) ng/dL TSH 3rd Generation 0.013 L (0.358-3.74) uIU/mL Ketones (0.0-0.3) mM 10/15/18 10/15/18 10/15/18 Range/Units 07:09 07:09 07:09 WBC (3.98-10.04) K/mm3 RBC (3.98-5.22) M/mm3 Hgb (11.2-15.7) gm/L Hct (34.1-44.9) % MCV (79.4-94.8) fl MCH (25.6-32.2) pg MCHC (32.2-35.5) g/dl RDW Std Deviation (36.4-46.3) fL Plt Count (182-369) K/mm3 MPV (9.4-12.3) fl Neutrophils % (Manual) (40-60) % Band Neutrophils % (0-10) % Lymphocytes % (Manual) (20-40) % Atypical Lymphs % % Monocytes % (Manual) (2-10) % Eosinophils % (Manual) (0.7-5.8) % Basophils % (Manual) (0.1-1.2) Platelet Estimate Anisocytosis [place] Cells RBC Morph Comment PT 11.9 (9.5-12.1) SECONDS INR 1.09 D-Dimer, Quantitative (0.19-0.50) mg/L Sodium (136-145) mEq/L Potassium (3.5-5.1) mEq/L Chloride (98-107) mEq/L Carbon Dioxide (21-32) mEq/L Anion Gap (5-15) BUN (7-18) mg/dL Creatinine (0.55-1.02) mg/dL Est Cr Clr Drug Dosing mL/min Estimated GFR (MDRD) (>60) mL/min BUN/Creatinine Ratio (14-18) Glucose (74-106) mg/dL POC Glucose (70-105) mg/dL Calcium (8.5-10.1) mg/dL Magnesium (1.8-2.4) mg/dl Total Bilirubin (0.2-1.0) mg/dL AST (15-37) U/L ALT (14-59) U/L Alkaline Phosphatase (46-116) U/L CK-MB (CK-2) (0-3.6) ng/ml Troponin I (0.00-0.056) ng/mL NT-Pro-B Natriuret Pep 1776 H (0-125) pg/mL Total Protein (6.4-8.2) g/dl Albumin (3.4-5.0) g/dl Globulin gm/dL Albumin/Globulin Ratio (1-2) Free T4 (0.76-1.46) ng/dL TSH 3rd Generation (0.358-3.74) uIU/mL Ketones 3.42 (0.0-0.3) mM 10/15/18 10/15/18 10/15/18 Range/Units 12:00 12:56 13:39 WBC (3.98-10.04) K/mm3 RBC (3.98-5.22) M/mm3 Hgb (11.2-15.7) gm/L Hct (34.1-44.9) % MCV (79.4-94.8) fl MCH (25.6-32.2) pg MCHC (32.2-35.5) g/dl RDW Std Deviation (36.4-46.3) fL Plt Count (182-369) K/mm3 MPV (9.4-12.3) fl Neutrophils % (Manual) (40-60) % Band Neutrophils % (0-10) % Lymphocytes % (Manual) (20-40) % Atypical Lymphs % % Monocytes % (Manual) (2-10) % Eosinophils % (Manual) (0.7-5.8) % Basophils % (Manual) (0.1-1.2) Platelet Estimate Anisocytosis [place] Cells RBC Morph Comment PT (9.5-12.1) SECONDS INR D-Dimer, Quantitative (0.19-0.50) mg/L Sodium (136-145) mEq/L Potassium (3.5-5.1) mEq/L Chloride (98-107) mEq/L Carbon Dioxide (21-32) mEq/L Anion Gap (5-15) BUN (7-18) mg/dL Creatinine (0.55-1.02) mg/dL Est Cr Clr Drug Dosing mL/min Estimated GFR (MDRD) (>60) mL/min BUN/Creatinine Ratio (14-18) Glucose (74-106) mg/dL POC Glucose 304 H 256 H 237 H (70-105) mg/dL Calcium (8.5-10.1) mg/dL Magnesium (1.8-2.4) mg/dl Total Bilirubin (0.2-1.0) mg/dL AST (15-37) U/L ALT (14-59) U/L Alkaline Phosphatase (46-116) U/L CK-MB (CK-2) (0-3.6) ng/ml Troponin I (0.00-0.056) ng/mL NT-Pro-B Natriuret Pep (0-125) pg/mL Total Protein (6.4-8.2) g/dl Albumin (3.4-5.0) g/dl Globulin gm/dL Albumin/Globulin Ratio (1-2) Free T4 (0.76-1.46) ng/dL TSH 3rd Generation (0.358-3.74) uIU/mL Ketones (0.0-0.3) mM 10/15/18 10/15/18 10/15/18 Range/Units 14:00 14:30 15:29 WBC (3.98-10.04) K/mm3 RBC (3.98-5.22) M/mm3 Hgb (11.2-15.7) gm/L Hct (34.1-44.9) % MCV (79.4-94.8) fl MCH (25.6-32.2) pg MCHC (32.2-35.5) g/dl RDW Std Deviation (36.4-46.3) fL Plt Count (182-369) K/mm3 MPV (9.4-12.3) fl Neutrophils % (Manual) (40-60) % Band Neutrophils % (0-10) % Lymphocytes % (Manual) (20-40) % Atypical Lymphs % % Monocytes % (Manual) (2-10) % Eosinophils % (Manual) (0.7-5.8) % Basophils % (Manual) (0.1-1.2) Platelet Estimate Anisocytosis [place] Cells RBC Morph Comment PT (9.5-12.1) SECONDS INR D-Dimer, Quantitative (0.19-0.50) mg/L Sodium 138 (136-145) mEq/L Potassium 3.7 (3.5-5.1) mEq/L Chloride 108 H (98-107) mEq/L Carbon Dioxide 16 L (21-32) mEq/L Anion Gap 17.7 H (5-15) BUN 19 H (7-18) mg/dL Creatinine 1.0 (0.55-1.02) mg/dL Est Cr Clr Drug Dosing 77.71 mL/min Estimated GFR (MDRD) > 60 (>60) mL/min BUN/Creatinine Ratio 19.0 H (14-18) Glucose 238 H (74-106) mg/dL POC Glucose 213 H 204 H (70-105) mg/dL Calcium 8.9 (8.5-10.1) mg/dL Magnesium 1.9 (1.8-2.4) mg/dl Total Bilirubin (0.2-1.0) mg/dL AST (15-37) U/L ALT (14-59) U/L Alkaline Phosphatase (46-116) U/L CK-MB (CK-2) (0-3.6) ng/ml Troponin I (0.00-0.056) ng/mL NT-Pro-B Natriuret Pep (0-125) pg/mL Total Protein (6.4-8.2) g/dl Albumin (3.4-5.0) g/dl Globulin gm/dL Albumin/Globulin Ratio (1-2) Free T4 (0.76-1.46) ng/dL TSH 3rd Generation (0.358-3.74) uIU/mL Ketones (0.0-0.3) mM 10/15/18 10/15/18 10/15/18 Range/Units 16:22 16:59 18:03 WBC (3.98-10.04) K/mm3 RBC (3.98-5.22) M/mm3 Hgb (11.2-15.7) gm/L Hct (34.1-44.9) % MCV (79.4-94.8) fl MCH (25.6-32.2) pg MCHC (32.2-35.5) g/dl RDW Std Deviation (36.4-46.3) fL Plt Count (182-369) K/mm3 MPV (9.4-12.3) fl Neutrophils % (Manual) (40-60) % Band Neutrophils % (0-10) % Lymphocytes % (Manual) (20-40) % Atypical Lymphs % % Monocytes % (Manual) (2-10) % Eosinophils % (Manual) (0.7-5.8) % Basophils % (Manual) (0.1-1.2) Platelet Estimate Anisocytosis [place] Cells RBC Morph Comment PT (9.5-12.1) SECONDS INR D-Dimer, Quantitative (0.19-0.50) mg/L Sodium 138 (136-145) mEq/L Potassium 4.0 (3.5-5.1) mEq/L Chloride 110 H (98-107) mEq/L Carbon Dioxide 19 L (21-32) mEq/L Anion Gap 13.0 (5-15) BUN 17 (7-18) mg/dL Creatinine 0.9 (0.55-1.02) mg/dL Est Cr Clr Drug Dosing 86.34 mL/min Estimated GFR (MDRD) > 60 (>60) mL/min BUN/Creatinine Ratio 18.9 H (14-18) Glucose 209 H (74-106) mg/dL POC Glucose 204 H 212 H (70-105) mg/dL Calcium 8.7 (8.5-10.1) mg/dL Magnesium (1.8-2.4) mg/dl Total Bilirubin (0.2-1.0) mg/dL AST (15-37) U/L ALT (14-59) U/L Alkaline Phosphatase (46-116) U/L CK-MB (CK-2) (0-3.6) ng/ml Troponin I (0.00-0.056) ng/mL NT-Pro-B Natriuret Pep (0-125) pg/mL Total Protein (6.4-8.2) g/dl Albumin (3.4-5.0) g/dl Globulin gm/dL Albumin/Globulin Ratio (1-2) Free T4 (0.76-1.46) ng/dL TSH 3rd Generation (0.358-3.74) uIU/mL Ketones (0.0-0.3) mM Result Diagrams: 10/15/18 07:09 10/15/18 18:03 - Problem List (1) High anion gap metabolic acidosis SNOMED Code(s): 92996429 ICD Code: E87.2 - ACIDOSIS Status: Acute Current Visit: Yes (2) Hyperglycemia due to type 1 diabetes mellitus SNOMED Code(s): 884546279283149, 667502194510169 ICD Code: E10.65 - TYPE 1 DIABETES MELLITUS WITH HYPERGLYCEMIA Status: Acute Current Visit: Yes (3) Hyperthyroidism SNOMED Code(s): 72576589 ICD Code: E05.90 - THYROTOXICOSIS, UNSP WITHOUT THYROTOXIC CRISIS OR STORM Status: Acute Current Visit: Yes (4) Hypomagnesemia SNOMED Code(s): 813213026 ICD Code: E83.42 - HYPOMAGNESEMIA Status: Acute Current Visit: Yes Problem List Initiated/Reviewed/Updated: Yes Orders Last 24hrs: Active Orders 24 hr Category Date Time Status Admission Status [Patient Status] [ADT] Routine ADT 10/15/18 09:51 Active Antiembolic Devices [RC] QSHIFT Care 10/15/18 12:40 Active Up ad Mario [RC] ASDIRECTED Care 10/15/18 12:42 Active ADA Diabetic [[place] [employer] Diet] [DIET Diet 10/16/18 Breakfast Active ] FREE T3 [REF] Stat Lab 10/15/18 07:09 Received Insulin Regular, Human [HumuLIN R] 100 unit Med 10/15/18 08:45 Active Sodium Chloride 0.9% [Normal Saline] 99 ml IV TITRATE Metoprolol Tartrate [Lopressor] Med 10/15/18 15:32 Active 5 mg IVPUSH Q6H PRN Patient's Own Medication [Ptom] Med 10/16/18 09:00 Active 1 each PO DAILY methIMAzole Med 10/17/18 09:00 Active 10 mg PO Q48H SCD [Sequential Compression Device] [OM.PC] Routine Oth 10/15/18 12:40 Ordered Resuscitation Status Routine Resus Stat 10/15/18 12:39 Ordered Medication Orders Insulin Human Regular 100 unit (/ Sodium Chloride) 100 mls @ 7.52 mls/hr IV TITRATE EDDIE; Protocol Last Titration: 10/15/18 18:39 Dose: 0.01 units/kg/hr, 1 mls/hr Titration: 10/15/18 13:52 Dose: 0.05 units/kg/hr, 4 mls/hr Admin: 10/15/18 08:55 Dose: 0.1 units/kg/hr, 7.52 mls/hr Methimazole (Methimazole) 10 mg PO Q48H EDDIE Metoprolol Tartrate (Lopressor) 5 mg IVPUSH Q6H PRN PRN Reason: Tachycardia Last Admin: 10/15/18 16:24 Dose: 5 mg Norgestrel-Ethinyl Estradiol Patients Own Med 1 each PO DAILY EDDIE Assessment/Plan Comment:: Type 1 diabetes with hyperglycemia * Patient will be continued on an insulin drip at 7.5 units per hour. When blood sugars are between 200 and 250 we will decrease the drip to 4 units per hour and add D5 to her IV fluids. * Initial IV fluids will be LR at 150 mL per hour * Switched to D5 normal saline when blood sugars are between 200 and 250 * When anion gap corrects patient will be dropped to 1 unit per hour. Her typical daily basal insulin is 15 units a day. Our insulin drip can only go to 1 unit per hour. I would like to continue her on a drip overnight, because switching to long-acting insulin would make it difficult to reassess her pump in the morning. * Bolus her insulin with her normal regimen of 1 unit of insulin per 12 g of carbohydrates and cover with sliding scale. * Continue fingerstick blood sugars every 2 hours overnight to make sure we don' t cause hypoglycemia with increased basal insulin. Anion gap metabolic acidosis * Continue checking BMP every 4 hours until the anion gap closes. * At that time switched to maintenance insulin and DC IV fluids and switched to normal meals. Patient longer has nausea or vomiting. Hyperthyroidism * Patient was given methimazole and iodine in the emergency room. She continues to have tachycardia in the 120s. * She will get another dose of methimazole 10 mg in the morning. * Check free T4 in the morning * Manage tachycardia with IV Lopressor Hypomagnesemia * Magnesium was corrected in the emergency room. * Recheck in the morning. DC planning for tomorrow VTE prophylaxis: Patient is up ad mario.
[2018-10-15] MEDS ORDERED: Insulin Lispro 100 Units/ML 3 ML Vial SUBCUT ONE ×2 (19:44→22:15)
[2018-10-15] MEDS ORDERED: Diphenhydramine/Lidocaine/MagAl/Simethicone 119 ML Bottle PO ONE (20:14)
[2018-10-15] MEDS ORDERED: Alum Hydrox/Mag Hydrox/Simeth 30 ML, Lidocaine 2% 15 ML PO ONE ×2 (20:25)
[2018-10-16] MEDS ORDERED: Acetaminophen 325 MG Tab PO PRN (04:55)
[2018-10-16] MEDS ORDERED: Ibuprofen 600 MG Tab PO PRN (05:04)
[2018-10-16 07:24] LABS: HEMOGLOBIN A1C 7.4 % (4.50-6.20)
[2018-10-16] MEDS ORDERED: Magnesium Sulfate/Water 4 GM in Premix Bag 1 BAG IV ONE (07:52)
[2018-10-16] MEDS ORDERED: Metoprolol Tartrate 25 MG Tab PO SCH (09:00)
[2018-10-16] MEDS ORDERED: Methimazole 5 MG Tab PO SCH (09:00)
[2018-10-16] MEDS ORDERED: NORGESTREL ETHINYL ESTRADIOL PO SCH (09:00)
[2018-10-16 12:23] VITALS: BP 130/76
--- NOTE | 2018-10-16 14:14 | PCM.DCSUM1 ---
Discharge Summary - Hospital Course HPI Initial Comments: This 28-year-old female with type 1 diabetes and hypothyroidism who presented to the emergency room this morning with racing heart and chest pain. Patient initially presented to the emergency room last night where she had abdominal pain, vomiting, was found to be in DKA. In the emergency room they rehydrated her, start her on insulin drip, and stabilized her. At 5:00 this morning they discharged her home and when she got home she went upstairs and her heart started racing. She laid down and developed chest pain and returned to the emergency room. Patient was found to be tachycardic and the emergency room team felt this could be due to her hyperthyroidism. She was given another dose of methimazole, but she vomited this one up also. Patient had a persistent anion gap of 20 with metabolic acidosis. Patient is a type I diabetic and has had insulin pumps for several years. She picked up a new pump just yesterday and there is question if it was working properly. There was question about the setting she actually had it on. In the emergency room they did give her 5 mg of IV Lopressor to decrease her heart rate, at least 2 L of saline, and was placed in insulin drip. Patient will be admitted for further management of her hyperglycemia with metabolic acidosis and anion gap. Patient states that she takes methimazole 10 mg every other day. She believes she vomited it up. In the emergency room her TSH was 0.013 and her free T4 was 3.34. She no longer has nausea or vomiting. Patient was given oral iodine in the emergency room for her elevated thyroid. I spoke with her ict educator and the patient is generally on 15.1 units basal insulin per day. She does bolus based on her sliding scale. Her new insulin pump has both a meter that is real time and an automatic insulin delivery device. She would like us to try her on her insulin pump prior to discharge to confirm that it is properly working. Brief History: Patient was hospitalized for less than 24 hours. She had a quick resolution of her anion gap and hyperglycemia. She continued to have some tachycardia even after the Lopressor IV push. She was started on metoprolol tartrate 25 mg twice a day for rate control. We also utilized her home pump for the last 4 hours or more of her hospitalization to make sure it responded appropriately. Blood sugars on the home monitor and infusion pump or from 70- 200 and the pump appeared to respond appropriately. Patient was discharged in good condition and will follow up with her passenger representative and primary care provider. Diagnosis: Stroke: No - Discharge Data Discharge Date: 10/16/18 Discharge Disposition: Home, Self-Care 01 Condition: Good - Discharge Diagnosis/Problem(s) (1) High anion gap metabolic acidosis SNOMED Code(s): 30329481 ICD Code: E87.2 - ACIDOSIS Status: Acute Current Visit: Yes (2) Hyperglycemia due to type 1 diabetes mellitus SNOMED Code(s): 124249384232374, 553901957524260 ICD Code: E10.65 - TYPE 1 DIABETES MELLITUS WITH HYPERGLYCEMIA Status: Acute Current Visit: Yes (3) Hyperthyroidism SNOMED Code(s): 96828200 ICD Code: E05.90 - THYROTOXICOSIS, UNSP WITHOUT THYROTOXIC CRISIS OR STORM Status: Acute Current Visit: Yes (4) Hypomagnesemia SNOMED Code(s): 830064015 ICD Code: E83.42 - HYPOMAGNESEMIA Status: Acute Current Visit: Yes - Patient Instructions Diet: Diabetic Diet Activity: As Tolerated Driving: May Drive Today Showering/Bathing: May Shower - Discharge Plan *PRESCRIPTION DRUG MONITORING PROGRAM REVIEWED*: Not Applicable *COPY OF PRESCRIPTION DRUG MONITORING REPORT IN PATIENT MIKE: Not Applicable Prescriptions/Med Rec: Metoprolol Tartrate [Lopressor] 25 mg PO Q12H #60 tablet Home Medications: Home Meds Ibuprofen [IJD: Ibuprofen] 600 mg PO Q6H PRN tablet 09/07/17 [Rx] Insulin Pump/Infus. Set/Meter [Accu-Chek Combo System] 55 units MC DAILY [History] Methimazole [Tapazole] 10 mg PO Q48H 10/15/18 [History] Norgestrel-Ethinyl Estradiol [Elinest-28 Tablet] 1 tab PO DAILY 10/15/18 [ History] Metoprolol Tartrate [Lopressor] 25 mg PO Q12H #60 tablet 10/16/18 [Rx] Oxygen Therapy Mode: Room Air Patient Handouts: Hyperthyroidism, Diabetes Mellitus and Sick Day Management Referrals: Amparo Parkinson, INSURANCE ACCOUNT EXECUTIVE [Primary Care Provider] - - Discharge Summary/Plan Comment DC Time >30 min.: Yes Discharge Summary/Plan Comment: Type 1 diabetes with hyperglycemia - resolved * Patient is sent home on her home monitor and insulin pump. * Follow-up with endocrinology and primary care provider. Anion gap metabolic acidosis - resolved Hyperthyroidism * Patient was given methimazole and iodine in the emergency room. She continues to have tachycardia in the 120s. * She was given another dose of methimazole 10 mg this morning. * Free T4 this morning is down from 3.43 and now is 1.83 * Added metoprolol tartrate 25 mg twice a day. Patient can stop this if her pulse drops below 60 or she becomes symptomatic with lightheadedness, dizziness , or exercise intolerance with a pulse less than 80. Hypomagnesemia * Magnesium 4 g prior to discharge * Recheck as outpatient - General Info Date of Service: 10/16/18 Admission Dx/Problem (Free Text: Admission Diagnosis/Problem Admission Diagnosis/Problem Hyperthyroidism Subjective Update: Patient was admitted with IV insulin infusion and quickly closed her anion gap. She was switched to her home insulin pump and monitor in the morning and has had good results. Patient still has a sinus tachycardia over 100. Functional Status: Reports: Pain Controlled - Review of Systems General: Reports: No Symptoms HEENT: Reports: No Symptoms Pulmonary: Reports: No Symptoms Cardiovascular: Reports: No Symptoms. Denies: Chest Pain, Palpitations Gastrointestinal: Reports: No Symptoms Genitourinary: Reports: No Symptoms - Patient Data Vitals - Most Recent: Last Vital Signs Temp 98.1 F 10/16/18 12:00 Pulse 94 10/16/18 12:00 Resp 18 10/16/18 12:00 BP 130/76 10/16/18 12:00 Pulse Ox 98 10/16/18 12:00 Weight - Most Recent: 164 lb 11.2 oz I&O - Last 24 hours: Intake & Output 10/15/18 10/16/18 10/16/18 22:59 06:59 14:59 Intake Total 984 411 400 Output Total 900 550 350 Balance 84 -139 50 Lab Results - Last 24 hrs: Laboratory Results - last 24 hr 10/15/18 10/15/18 10/15/18 Range/Units 07:09 10:24 14:00 WBC (3.98-10.04) K/mm3 RBC (3.98-5.22) M/mm3 Hgb (11.2-15.7) gm/L Hct (34.1-44.9) % MCV (79.4-94.8) fl MCH (25.6-32.2) pg MCHC (32.2-35.5) g/dl RDW Std Deviation (36.4-46.3) fL Plt Count (182-369) K/mm3 MPV (9.4-12.3) fl Neut % (Auto) (34.0-71.1) % Lymph % (Auto) (19.3-51.7) % Sibley % (Auto) (4.7-12.5) % Eos % (Auto) (0.7-5.8) Baso % (Auto) (0.1-1.2) % Neut # (Auto) (1.56-6.13) K/mm3 Lymph # (Auto) (1.18-3.74) K/mm3 Sibley # (Auto) (0.24-0.36) K/mm3 Eos # (Auto) (0.04-0.36) K/mm3 Baso # (Auto) (0.01-0.08) K/mm3 Sodium 138 (136-145) mEq/L Potassium 3.7 (3.5-5.1) mEq/L Chloride 108 H (98-107) mEq/L Carbon Dioxide 16 L (21-32) mEq/L Anion Gap 17.7 H (5-15) BUN 19 H (7-18) mg/dL Creatinine 1.0 (0.55-1.02) mg/dL Est Cr Clr Drug Dosing 77.71 mL/min Estimated GFR (MDRD) > 60 (>60) mL/min BUN/Creatinine Ratio 19.0 H (14-18) Glucose 238 H (74-106) mg/dL POC Glucose 314 H (70-105) mg/dL Hemoglobin A1c (4.50-6.20) % Calcium 8.9 (8.5-10.1) mg/dL Magnesium 1.9 (1.8-2.4) mg/dl Total Bilirubin (0.2-1.0) mg/dL AST (15-37) U/L ALT (14-59) U/L Alkaline Phosphatase (46-116) U/L Total Protein (6.4-8.2) g/dl Albumin (3.4-5.0) g/dl Globulin gm/dL Albumin/Globulin Ratio (1-2) Triglycerides (<150) mg/dL Cholesterol (<200) mg/dL LDL Cholesterol Direct (<100) mg/dL HDL Cholesterol (40-59) mg/dL Free T4 (0.76-1.46) ng/dL Free T3 pg/mL 4.30 H (2.50-3.90) pg/mL 10/15/18 10/15/18 10/15/18 Range/Units 14:30 15:29 16:22 WBC (3.98-10.04) K/mm3 RBC (3.98-5.22) M/mm3 Hgb (11.2-15.7) gm/L Hct (34.1-44.9) % MCV (79.4-94.8) fl MCH (25.6-32.2) pg MCHC (32.2-35.5) g/dl RDW Std Deviation (36.4-46.3) fL Plt Count (182-369) K/mm3 MPV (9.4-12.3) fl Neut % (Auto) (34.0-71.1) % Lymph % (Auto) (19.3-51.7) % Sibley % (Auto) (4.7-12.5) % Eos % (Auto) (0.7-5.8) Baso % (Auto) (0.1-1.2) % Neut # (Auto) (1.56-6.13) K/mm3 Lymph # (Auto) (1.18-3.74) K/mm3 Sibley # (Auto) (0.24-0.36) K/mm3 Eos # (Auto) (0.04-0.36) K/mm3 Baso # (Auto) (0.01-0.08) K/mm3 Sodium (136-145) mEq/L Potassium (3.5-5.1) mEq/L Chloride (98-107) mEq/L Carbon Dioxide (21-32) mEq/L Anion Gap (5-15) BUN (7-18) mg/dL Creatinine (0.55-1.02) mg/dL Est Cr Clr Drug Dosing mL/min Estimated GFR (MDRD) (>60) mL/min BUN/Creatinine Ratio (14-18) Glucose (74-106) mg/dL POC Glucose 213 H 204 H 204 H (70-105) mg/dL Hemoglobin A1c (4.50-6.20) % Calcium (8.5-10.1) mg/dL Magnesium (1.8-2.4) mg/dl Total Bilirubin (0.2-1.0) mg/dL AST (15-37) U/L ALT (14-59) U/L Alkaline Phosphatase (46-116) U/L Total Protein (6.4-8.2) g/dl Albumin (3.4-5.0) g/dl Globulin gm/dL Albumin/Globulin Ratio (1-2) Triglycerides (<150) mg/dL Cholesterol (<200) mg/dL LDL Cholesterol Direct (<100) mg/dL HDL Cholesterol (40-59) mg/dL Free T4 (0.76-1.46) ng/dL Free T3 pg/mL (2.50-3.90) pg/mL 10/15/18 10/15/18 10/15/18 Range/Units 16:59 18:03 19:52 WBC (3.98-10.04) K/mm3 RBC (3.98-5.22) M/mm3 Hgb (11.2-15.7) gm/L Hct (34.1-44.9) % MCV (79.4-94.8) fl MCH (25.6-32.2) pg MCHC (32.2-35.5) g/dl RDW Std Deviation (36.4-46.3) fL Plt Count (182-369) K/mm3 MPV (9.4-12.3) fl Neut % (Auto) (34.0-71.1) % Lymph % (Auto) (19.3-51.7) % Sibley % (Auto) (4.7-12.5) % Eos % (Auto) (0.7-5.8) Baso % (Auto) (0.1-1.2) % Neut # (Auto) (1.56-6.13) K/mm3 Lymph # (Auto) (1.18-3.74) K/mm3 Sibley # (Auto) (0.24-0.36) K/mm3 Eos # (Auto) (0.04-0.36) K/mm3 Baso # (Auto) (0.01-0.08) K/mm3 Sodium 138 (136-145) mEq/L Potassium 4.0 (3.5-5.1) mEq/L Chloride 110 H (98-107) mEq/L Carbon Dioxide 19 L (21-32) mEq/L Anion Gap 13.0 (5-15) BUN 17 (7-18) mg/dL Creatinine 0.9 (0.55-1.02) mg/dL Est Cr Clr Drug Dosing 86.34 mL/min Estimated GFR (MDRD) > 60 (>60) mL/min BUN/Creatinine Ratio 18.9 H (14-18) Glucose 209 H (74-106) mg/dL POC Glucose 212 H 183 H (70-105) mg/dL Hemoglobin A1c (4.50-6.20) % Calcium 8.7 (8.5-10.1) mg/dL Magnesium (1.8-2.4) mg/dl Total Bilirubin (0.2-1.0) mg/dL AST (15-37) U/L ALT (14-59) U/L Alkaline Phosphatase (46-116) U/L Total Protein (6.4-8.2) g/dl Albumin (3.4-5.0) g/dl Globulin gm/dL Albumin/Globulin Ratio (1-2) Triglycerides (<150) mg/dL Cholesterol (<200) mg/dL LDL Cholesterol Direct (<100) mg/dL HDL Cholesterol (40-59) mg/dL Free T4 (0.76-1.46) ng/dL Free T3 pg/mL (2.50-3.90) pg/mL 10/15/18 10/15/18 10/16/18 Range/Units 22:11 23:48 02:26 WBC (3.98-10.04) K/mm3 RBC (3.98-5.22) M/mm3 Hgb (11.2-15.7) gm/L Hct (34.1-44.9) % MCV (79.4-94.8) fl MCH (25.6-32.2) pg MCHC (32.2-35.5) g/dl RDW Std Deviation (36.4-46.3) fL Plt Count (182-369) K/mm3 MPV (9.4-12.3) fl Neut % (Auto) (34.0-71.1) % Lymph % (Auto) (19.3-51.7) % Sibley % (Auto) (4.7-12.5) % Eos % (Auto) (0.7-5.8) Baso % (Auto) (0.1-1.2) % Neut # (Auto) (1.56-6.13) K/mm3 Lymph # (Auto) (1.18-3.74) K/mm3 Sibley # (Auto) (0.24-0.36) K/mm3 Eos # (Auto) (0.04-0.36) K/mm3 Baso # (Auto) (0.01-0.08) K/mm3 Sodium (136-145) mEq/L Potassium (3.5-5.1) mEq/L Chloride (98-107) mEq/L Carbon Dioxide (21-32) mEq/L Anion Gap (5-15) BUN (7-18) mg/dL Creatinine (0.55-1.02) mg/dL Est Cr Clr Drug Dosing mL/min Estimated GFR (MDRD) (>60) mL/min BUN/Creatinine Ratio (14-18) Glucose (74-106) mg/dL POC Glucose 263 H 214 H 165 H (70-105) mg/dL Hemoglobin A1c (4.50-6.20) % Calcium (8.5-10.1) mg/dL Magnesium (1.8-2.4) mg/dl Total Bilirubin (0.2-1.0) mg/dL AST (15-37) U/L ALT (14-59) U/L Alkaline Phosphatase (46-116) U/L Total Protein (6.4-8.2) g/dl Albumin (3.4-5.0) g/dl Globulin gm/dL Albumin/Globulin Ratio (1-2) Triglycerides (<150) mg/dL Cholesterol (<200) mg/dL LDL Cholesterol Direct (<100) mg/dL HDL Cholesterol (40-59) mg/dL Free T4 (0.76-1.46) ng/dL Free T3 pg/mL (2.50-3.90) pg/mL 10/16/18 10/16/18 10/16/18 Range/Units 04:39 06:09 06:14 WBC (3.98-10.04) K/mm3 RBC (3.98-5.22) M/mm3 Hgb (11.2-15.7) gm/L Hct (34.1-44.9) % MCV (79.4-94.8) fl MCH (25.6-32.2) pg MCHC (32.2-35.5) g/dl RDW Std Deviation (36.4-46.3) fL Plt Count (182-369) K/mm3 MPV (9.4-12.3) fl Neut % (Auto) (34.0-71.1) % Lymph % (Auto) (19.3-51.7) % Sibley % (Auto) (4.7-12.5) % Eos % (Auto) (0.7-5.8) Baso % (Auto) (0.1-1.2) % Neut # (Auto) (1.56-6.13) K/mm3 Lymph # (Auto) (1.18-3.74) K/mm3 Sibley # (Auto) (0.24-0.36) K/mm3 Eos # (Auto) (0.04-0.36) K/mm3 Baso # (Auto) (0.01-0.08) K/mm3 Sodium (136-145) mEq/L Potassium (3.5-5.1) mEq/L Chloride (98-107) mEq/L Carbon Dioxide (21-32) mEq/L Anion Gap (5-15) BUN (7-18) mg/dL Creatinine (0.55-1.02) mg/dL Est Cr Clr Drug Dosing mL/min Estimated GFR (MDRD) (>60) mL/min BUN/Creatinine Ratio (14-18) Glucose (74-106) mg/dL POC Glucose 157 H 136 H (70-105) mg/dL Hemoglobin A1c 7.40 H (4.50-6.20) % Calcium (8.5-10.1) mg/dL Magnesium (1.8-2.4) mg/dl Total Bilirubin (0.2-1.0) mg/dL AST (15-37) U/L ALT (14-59) U/L Alkaline Phosphatase (46-116) U/L Total Protein (6.4-8.2) g/dl Albumin (3.4-5.0) g/dl Globulin gm/dL Albumin/Globulin Ratio (1-2) Triglycerides (<150) mg/dL Cholesterol (<200) mg/dL LDL Cholesterol Direct (<100) mg/dL HDL Cholesterol (40-59) mg/dL Free T4 (0.76-1.46) ng/dL Free T3 pg/mL (2.50-3.90) pg/mL 10/16/18 10/16/18 10/16/18 Range/Units 06:24 06:24 06:24 WBC 13.17 H (3.98-10.04) K/mm3 RBC 4.11 (3.98-5.22) M/mm3 Hgb 11.3 (11.2-15.7) gm/L Hct 34.3 (34.1-44.9) % MCV 83.5 (79.4-94.8) fl MCH 27.5 (25.6-32.2) pg MCHC 32.9 (32.2-35.5) g/dl RDW Std Deviation 38.5 (36.4-46.3) fL Plt Count 224 (182-369) K/mm3 MPV 10.4 (9.4-12.3) fl Neut % (Auto) 76.9 H (34.0-71.1) % Lymph % (Auto) 16.8 L (19.3-51.7) % Sibley % (Auto) 5.8 (4.7-12.5) % Eos % (Auto) 0.2 L (0.7-5.8) Baso % (Auto) 0.2 (0.1-1.2) % Neut # (Auto) 10.14 H (1.56-6.13) K/mm3 Lymph # (Auto) 2.21 (1.18-3.74) K/mm3 Sibley # (Auto) 0.76 H (0.24-0.36) K/mm3 Eos # (Auto) 0.03 L (0.04-0.36) K/mm3 Baso # (Auto) 0.02 (0.01-0.08) K/mm3 Sodium 140 (136-145) mEq/L Potassium 3.8 (3.5-5.1) mEq/L Chloride 109 H (98-107) mEq/L Carbon Dioxide 20 L (21-32) mEq/L Anion Gap 14.8 (5-15) BUN 15 (7-18) mg/dL Creatinine 0.8 (0.55-1.02) mg/dL Est Cr Clr Drug Dosing 97.13 mL/min Estimated GFR (MDRD) > 60 (>60) mL/min BUN/Creatinine Ratio 18.8 H (14-18) Glucose 145 H (74-106) mg/dL POC Glucose (70-105) mg/dL Hemoglobin A1c (4.50-6.20) % Calcium 8.2 L (8.5-10.1) mg/dL Magnesium 1.4 L (1.8-2.4) mg/dl Total Bilirubin 0.7 (0.2-1.0) mg/dL AST 50 H (15-37) U/L ALT 52 (14-59) U/L Alkaline Phosphatase 69 (46-116) U/L Total Protein 5.8 L (6.4-8.2) g/dl Albumin 2.9 L (3.4-5.0) g/dl Globulin 2.9 gm/dL Albumin/Globulin Ratio 1.0 (1-2) Triglycerides 29 (<150) mg/dL Cholesterol 93 (<200) mg/dL LDL Cholesterol Direct 32 (<100) mg/dL HDL Cholesterol 52.0 (40-59) mg/dL Free T4 1.83 H (0.76-1.46) ng/dL Free T3 pg/mL (2.50-3.90) pg/mL 10/16/18 10/16/18 Range/Units 08:26 09:12 WBC (3.98-10.04) K/mm3 RBC (3.98-5.22) M/mm3 Hgb (11.2-15.7) gm/L Hct (34.1-44.9) % MCV (79.4-94.8) fl MCH (25.6-32.2) pg MCHC (32.2-35.5) g/dl RDW Std Deviation (36.4-46.3) fL Plt Count (182-369) K/mm3 MPV (9.4-12.3) fl Neut % (Auto) (34.0-71.1) % Lymph % (Auto) (19.3-51.7) % Sibley % (Auto) (4.7-12.5) % Eos % (Auto) (0.7-5.8) Baso % (Auto) (0.1-1.2) % Neut # (Auto) (1.56-6.13) K/mm3 Lymph # (Auto) (1.18-3.74) K/mm3 Sibley # (Auto) (0.24-0.36) K/mm3 Eos # (Auto) (0.04-0.36) K/mm3 Baso # (Auto) (0.01-0.08) K/mm3 Sodium (136-145) mEq/L Potassium (3.5-5.1) mEq/L Chloride (98-107) mEq/L Carbon Dioxide (21-32) mEq/L Anion Gap (5-15) BUN (7-18) mg/dL Creatinine (0.55-1.02) mg/dL Est Cr Clr Drug Dosing mL/min Estimated GFR (MDRD) (>60) mL/min BUN/Creatinine Ratio (14-18) Glucose (74-106) mg/dL POC Glucose 131 H 88 (70-105) mg/dL Hemoglobin A1c (4.50-6.20) % Calcium (8.5-10.1) mg/dL Magnesium (1.8-2.4) mg/dl Total Bilirubin (0.2-1.0) mg/dL AST (15-37) U/L ALT (14-59) U/L Alkaline Phosphatase (46-116) U/L Total Protein (6.4-8.2) g/dl Albumin (3.4-5.0) g/dl Globulin gm/dL Albumin/Globulin Ratio (1-2) Triglycerides (<150) mg/dL Cholesterol (<200) mg/dL LDL Cholesterol Direct (<100) mg/dL HDL Cholesterol (40-59) mg/dL Free T4 (0.76-1.46) ng/dL Free T3 pg/mL (2.50-3.90) pg/mL Med Orders - Current: Current Medications Insulin Human Regular 100 unit (/ Sodium Chloride) 100 mls @ 7.52 mls/hr IV TITRATE EDDIE; Protocol Last Titration: 10/16/18 09:16 Dose: 0 units/kg/hr, 0.5 mls/hr Ibuprofen (Motrin) 600 mg PO Q6H PRN PRN Reason: Pain Last Admin: 10/16/18 05:13 Dose: 600 mg Methimazole (Methimazole) 10 mg PO Q48H [facility] Last Admin: 10/16/18 09:32 Dose: 10 mg Metoprolol Tartrate (Lopressor) 5 mg IVPUSH Q6H PRN PRN Reason: Tachycardia Last Admin: 10/15/18 16:24 Dose: 5 mg Metoprolol Tartrate (Lopressor) 25 mg PO Q12H [facility] Last Admin: 10/16/18 09:31 Dose: 25 mg Norgestrel-Ethinyl Estradiol Patients Own Med 1 each PO DAILY [facility] Last Admin: 10/16/18 09:33 Dose: Not Given Discontinued Medications Acetaminophen (Tylenol) 650 mg PO Q4H PRN PRN Reason: Pain Al Hydroxide/Mg Hydroxide 30 (ml/ Lidocaine HCl 15 ml) 0 ml PO ONETIME ONE Stop: 10/15/18 20:26 Last Admin: 10/15/18 20:30 Dose: 45 ml Diphenhydr/Magaldrate/Simeth/Lidoca (First-Mouthwash Blm Susp) 30 ml PO ASDIRECTED ONE Stop: 10/15/18 20:15 Last Admin: 10/15/18 20:25 Dose: Not Given Hydrocortisone Sodium Succinate (Solu-Cortef) 100 mg IVPUSH ONETIME ONE Stop: 10/15/18 06:39 Last Admin: 10/15/18 06:59 Dose: 100 mg Sodium Chloride (Normal Saline) 1,000 mls @ 999 mls/hr IV ASDIRECTED [facility] Last Admin: 10/15/18 06:47 Dose: 999 mls/hr Lactated Ringer's (Ringers, Lactated) 500 mls @ 500 mls/hr IV .BOLUS ONE Stop: 10/15/18 09:29 Last Admin: 10/15/18 08:45 Dose: 500 mls/hr Magnesium Sulfate 2 gm/ Premix 50 mls @ 50 mls/hr IV ONETIME ONE Stop: 10/15/18 09:32 Last Admin: 10/15/18 08:51 Dose: 50 mls/hr Lactated Ringer's (Ringers, Lactated) 1,000 mls @ 150 mls/hr IV ASDIRECTED [facility] Last Admin: 10/15/18 12:54 Dose: 150 mls/hr Metoprolol Tartrate 5 mg/ (Sodium Chloride) 55 mls @ 100 mls/hr IV BID PRN PRN Reason: Tachycardia Potassium Chloride/Dextrose/Sod Cl (D5 Ns With 20 Meq Kcl) 1,000 mls @ 150 mls/ hr IV ASDIRECTED [facility] Last Admin: 10/15/18 14:12 Dose: 150 mls/hr Magnesium Sulfate 4 gm/ Premix 50 mls @ 12.5 mls/hr IV ONETIME ONE Stop: 10/16/18 11:51 Last Admin: 10/16/18 08:18 Dose: 12.5 mls/hr Insulin Human Lispro (Humalog) 3 unit SUBCUT ONETIME ONE Stop: 10/15/18 19:45 Last Admin: 10/15/18 19:53 Dose: 3 unit Insulin Human Lispro (Humalog) 2 unit SUBCUT ONETIME ONE Stop: 10/15/18 22:16 Last Admin: 10/15/18 22:16 Dose: 2 units Iodine (Iodine 2% Mild Tincture) 0 ml .XX ONETIME ONE Stop: 10/15/18 07:46 Last Admin: 10/15/18 08:53 Dose: 30 ml Lorazepam (Ativan) 1 mg IVPUSH ONETIME ONE Stop: 10/15/18 06:36 Last Admin: 10/15/18 06:47 Dose: 1 mg Methimazole (Methimazole) 10 mg PO ONETIME ONE Stop: 10/15/18 06:41 Last Admin: 10/15/18 07:25 Dose: 10 mg Metoprolol Tartrate (Lopressor) 5 mg IVPUSH ONETIME ONE Stop: 10/15/18 06:28 Last Admin: 10/15/18 06:49 Dose: 5 mg Metoprolol Tartrate (Lopressor) 5 mg IVPUSH ONETIME ONE Stop: 10/15/18 07:12 Last Admin: 10/15/18 07:21 Dose: 5 mg Ondansetron HCl (Zofran) 4 mg IVPUSH ONETIME ONE Stop: 10/15/18 08:01 Last Admin: 10/15/18 08:07 Dose: 4 mg - Exam General: Reports: Alert, Oriented HEENT: Reports: Pupils Equal, Pupils Reactive Neck: Reports: Supple Lungs: Reports: Clear to Auscultation, Normal Respiratory Effort Cardiovascular: Reports: Regular Rhythm, Tachycardia GI/Abdominal Exam: Normal Bowel Sounds, Soft, Non-Tender Extremities: Normal Inspection, Normal Range of Motion, No Pedal Edema Skin: Reports: Warm, Dry, Intact Psy/Mental Status: Reports: Alert, Normal Affect, Normal Mood
== END 2018-10-16 14:25 | disposition home or self-care (01) | DRG 427 ==
LOC: JD.ED 06:15 → JD.ICU 09:51
PROVIDERS: ADMIT Family Medicine; ATTEND Family Medicine
DX: E05.00 Thyrotoxicosis with diffuse goiter without thyrotoxic crisis or storm (principal); E10.65 Type 1 diabetes mellitus with hyperglycemia; E87.2 Acidosis; E83.42 Hypomagnesemia; E10.10 Type 1 diabetes mellitus with ketoacidosis without coma; R10.10 Upper abdominal pain, unspecified; R11.2 Nausea with vomiting, unspecified; R10.30 Lower abdominal pain, unspecified; Z79.4 Long term (current) use of insulin; Z79.899 Other long term (current) drug therapy; Z88.8 Allergy status to other drugs, medicaments and biological substances; Z88.1 Allergy status to other antibiotic agents; Z96.41 Presence of insulin pump (external) (internal)
CPT/HCPCS: 36415; 71045; 71045-26; 74177; 74177-26; 80048; 80053; 80061; 81001; 82009; 82553; 82800; 82947; 82962; 83036; 83690; 83735; 83880; 83930; 84439; 84443; 84481; 84484; 84703; 85007; 85025; 85027; 85379; 85610; 93005; 96361; 96365; 96366; 96367; 96368; 96375; 96376; 99284-25; 99285; 99285-25; A9270-GY; J1170; J1200; J1720; J1815-GY; J2060; J2405; J2550; J2765; J3475; J3480; J3490; J7030; J7040; J7050; J7120; Q9967

== ENCOUNTER 2019-06-24 06:24 | Day surgery (SDC) | payer BC ==
[~2019-06-24 06:24] MED LIST: Lactated Ringers 1,000 ML IV SCH; Lidocaine 1%/Sod Bicarbonate in NS 8.4% 1 ML Syringe IDERM PRN; Sodium Chloride 0.9% 10 ML Syringe FLUSH PRN
[2019-06-24] MEDS ORDERED: Lidocaine 1% 4 ML ONE (07:03)
[2019-06-24] MEDS ORDERED: Propofol 200 MG/20 ML SDV ONE ×2 (07:04→07:33)
[2019-06-24] MEDS ORDERED: fentaNYL 100 MCG/2 ML SDV ONE (07:04)
--- NOTE | 2019-06-24 07:15 | PCM.PREANE ---
Preanesthetic Assessment - Procedure Proposed Procedure: egd - Anesthesia/Transfusion/Family Hx Anesthesia History: Prior Anesthesia Without Reaction Family History of Anesthesia Reaction: No Transfusion History: No Prior Transfusion(s) Intubation History: Unknown - Review of Systems General: No Symptoms Pulmonary: No Symptoms Cardiovascular: Palpitations (with thyroid-) Gastrointestinal: Abdominal Pain (occasional), Nausea Neurological: No Symptoms Other: Reports: Diabetes, Thyroid Problems - Physical Assessment NPO Status Date: 06/23/19 (sip of water this am with pill) NPO Status Time: 19:00 Vital Signs: 98.3 16 97% 89 125/60 Height: 5 ft 6 in Weight: 76.204 kg ASA Class: 2 Mental Status: Alert & Oriented x3 Airway Class: Mallampati = 1 Dentition: Reports: Normal Dentition Thyro-Mental Finger Breadths: 3 Mouth Opening Finger Breadths: 3 ROM/Head Extension: Full Lungs: Clear to Auscultation, Normal Respiratory Effort Cardiovascular: Regular Rate, Regular Rhythm - Allergies Allergies/Adverse Reactions: Allergies Allergy/AdvReac Type Severity Reaction Status Date / Time acetaminophen [From Tylenol] Allergy Other Verified 06/23/19 12:13 cefaclor [From Ceclor] Allergy Cannot Verified 06/23/19 12:13 Remember - Blood Blood Available: No - Acknowledgements Anesthesia Type Planned: MAC Pt an Appropriate Candidate for the Planned Anesthesia: Yes Alternatives and Risks of Anesthesia Discussed w Pt/Guardian: Yes Pt/Guardian Understands and Agrees with Anesthesia Plan: Yes PreAnesthesia Questionnaire Cardiovascular History: Reports: None, Other (See Below) Other Cardiovascular History: HX heart palpatations. Respiratory History: Reports: None Gastrointestinal History: Reports: None Genitourinary History: Reports: None RECOVERY AUDITOR History: Reports: , Other (See Below) Other OB/BYN History: PIH and Pre-ecclampsia Neurological History: Reports: None Psychiatric History: Reports: None Endocrine/Metabolic History: Reports: Diabetes, Type I, Hyperthyroidism Other Endocrine/Metabolic History: Has own insulin pump and glucometer(placed ). Graves disease (08/2018) Hematologic History: Reports: None Immunologic History: Reports: None Oncologic (Cancer) History: Reports: None Dermatologic History: Reports: None - Past Surgical History Head Surgeries/Procedures: Reports: None HEENT Surgical History: Reports: Eye Surgery Cardiovascular Surgical History: Reports: None Respiratory Surgical History: Reports: None GI Surgical History: Reports: None Female Surgical History: Reports: Section Other Female Surgeries/Procedures: 08/2017 Endocrine Surgical History: Reports: None Neurological Surgical History: Reports: None Musculoskeletal Surgical History: Reports: Other (See Below) Other Musculoskeletal Surgeries/Procedures:: right foot surgery Oncologic Surgical History: Reports: None Dermatological Surgical History: Reports: None - SUBSTANCE USE Smoking Status *Q: Never Smoker Tobacco Use Within Last Twelve Months: No Second Hand Smoke Exposure: No Days Per Week of Alcohol Use: 1 Recreational Drug Use History: No - HOME MEDS Home Medications: Home Meds Norgestrel-Ethinyl Estradiol [Elinest-28 Tablet] 1 tab PO DAILY 10/15/18 [ History] Insulin Lispro [Humalog] 55 units SQ ASDIRECTED PRN 06/23/19 [History] Moxifloxacin [Vigamox 0.5% Ophth Soln] 1 drop EYELF QID 06/23/19 [History] Ondansetron [Zofran] 4 mg PO DAILY 06/23/19 [History] Promethazine [Phenergan] 25 mg TOP Q6H PRN 06/23/19 [History] methIMAzole [Methimazole] 10 mg PO BID 06/23/19 [History] propylthiouraciL [Propylthiouracil] 50 mg PO QAM 06/23/19 [History] - CURRENT (IN HOUSE) MEDS Current Meds: Current Medications Lactated Ringer's (Ringers, Lactated) 1,000 mls @ 125 mls/hr IV ASDIRECTED EDDIE Stop: 06/24/19 23:00 Lidocaine/Sodium Bicarbonate (Buffered Lidocaine 1% In Ns 8.4%) 0.25 ml IDERM ONETIME PRN PRN Reason: Prior to IV Start Stop: 06/24/19 18:00 Sodium Chloride (Saline Flush) 10 ml FLUSH ASDIRECTED PRN PRN Reason: Keep Vein Open Stop: 06/24/19 18:00 Discontinued Medications Fentanyl (Sublimaze) Confirm Administered Dose 100 mcg .ROUTE .STK-MED ONE Stop: 06/24/19 07:05 Lidocaine HCl (Xylocaine-Mpf 1%) Confirm Administered Dose 4 mls @ as directed .ROUTE .STK-MED ONE Stop: 06/24/19 07:04 Propofol (Diprivan 20 Ml) Confirm Administered Dose 200 mg .ROUTE .[facility] ONE Stop: 06/24/19 07:05
--- NOTE | 2019-06-24 07:49 | PCM.OPNOTE ---
- General Post-Op/Procedure Note Date of Surgery/Procedure: 06/24/19 Operative Procedure(s): EGD Findings: 1. Esophagitis in upper esophagus 2. Erosive gastritis 3. Duodenitis Pre Op Diagnosis: Persistent nausea Post-Op Diagnosis: same Anesthesia Technique: ROB Primary Surgeon: Mi Fernandes Anesthesia Provider: Genevieve Estrada Pathology: 1. Duodenal biopsy 2. Gastric antrum biopsy for H. Pylori 3. Esophagus biopsy Fluid Replacement, Intraop: 500 Output, Urine Amount: 0 EBL in mLs: 0 Complications: None apparent Condition: Good
--- NOTE | 2019-06-24 07:49 | PCM.PRNOTE ---
- Free Text/Narrative Note: Operative Report Date of procedure: June 24, 2019 Preoperative diagnosis: Persistent nausea Postoperative diagnosis: Same Surgeon: Mi Fernandes M.D. Procedure: EGD Anesthesia: MAC Anesthesiologist: Natalie Vallejo CRNA IV fluids: 500 mL Estimated blood loss: 0 mL Specimens: 1. Duodenum biopsy 2. Gastric antrum for H. Pylori 3. Esophagus biopsy Indication: The patient is a 29 -year-old lady who presented with persistent nausea. The patient was consented for an EGD with intervention. Risk of bleeding and perforation were discussed. The patient's consent was obtained. Description of the procedure: The patient was taken to the endoscopy suite and placed on hemodynamic monitoring. The nurse psychological aide induced MAC anesthesia. A bite block was placed. The patient was positioned in the left lateral decubitus position. A timeout was performed. The endoscope was gently placed into the mouth to the back of the pharynx and introduced into the esophagus. The scope was gently advanced under direct visualization down to the level of the lower esophageal sphincter. The stomach was then entered. Normal rugal folds were noted. The scope was advanced into the antrum. Biopsies were taken in the antrum with a double cold biopsy forceps for H. pylori testing. We noted gastritis with linear erosions and stigmata of recent mild bleeding in the body of the stomach, as well as findings of gastritis in antrum. The pylorus was then entered and the first and second portion of the duodenum was inspected. We did note some duodenal inflammation with erythema and friability with stigmata of recent mild bleeding. There was some flattening of the villous. Biopsies were taken with jumbo cold forceps in the second portion of the duodenum and in the duodenal bulb. There were no ulcerations in the duodenum. The scope was then retroflexed in the cardia and fundus were investigated. There is no evidence of any hiatal hernia. No other abnormalities were noted. The scope was then withdrawn while inspecting the esophagus. There was esophagitis noted in the proximal 1/3 of the esophagus. Biopsies were taken with jumbo forceps.. The procedure was terminated. the patient tolerated the procedure well without any evidence of complications. Mi Fernandes MD General Surgery
--- NOTE | 2019-06-24 07:53 | PCM48HPAN ---
Post Anesthesia Note - EVALUATION WITHIN 48HRS OF ANESTHETIC Vital Signs in Normal Range: Yes Patient Participated in Evaluation: Yes Respiratory Function Stable: Yes Airway Patent: Yes Cardiovascular Function Stable: Yes Hydration Status Stable: Yes Pain Control Satisfactory: Yes Nausea and Vomiting Control Satisfactory: Yes Mental Status Recovered: Yes Vital Signs: 106/60 97% 71 16 97.9
[2019-06-24 11:00] VITALS: BP 136/66; PULSE 72
== END 2019-06-24 08:42 | disposition home or self-care (01) ==
LOC: JD.SDS 06:24
PROVIDERS: ATTEND Surgery
DX: K29.51 Unspecified chronic gastritis with bleeding (principal); K25.4 Chronic or unspecified gastric ulcer with hemorrhage; K29.81 Duodenitis with bleeding; K20.9 Esophagitis, unspecified; E10.9 Type 1 diabetes mellitus without complications; E05.00 Thyrotoxicosis with diffuse goiter without thyrotoxic crisis or storm; Z79.4 Long term (current) use of insulin; Z88.6 Allergy status to analgesic agent; Z88.8 Allergy status to other drugs, medicaments and biological substances; Z96.41 Presence of insulin pump (external) (internal)
CPT/HCPCS: 43239; 81025; J2001; J2704; J3010; J7120